=== PATIENT | female | born 1975 | race African-American/Black ===

== ENCOUNTER 2025-02-15 08:59 | Outpatient (CLI) | payer OTHER, SELFPAY ==
--- OUTSIDE RECORDS SUMMARY | 2025-01-29 15:30 | XMS_ITS | Encounter Summary ---
Author Organization [facility] Address [facility] [place] [address] Care Team Providers Care Artist Manager Name Role Phone Lise Posada MD Primary Care Provider [phone] Encounter Details Date Type Department Care Team (Latest Contact Info) Description 09/23/2024 MyChart Message Enc [facility] Multispecialty Care - [facility] 3 [facility], [address] [place] [phone] Jaya Carnes MD 3 [facility] [address] [place] [address] Tomorrow surgery Social History Tobacco Use Types Packs/Day Years Used Date Smoking Tobacco: Never Smokeless Tobacco: Never Alcohol Use Standard Drinks/Week Comments Not Currently 3.3 (1 standard drink = 0.6 oz p ure alcohol) occasional PHQ-2 Answer Date Recorded Patient Health Questionnaire-2 Score 0 07/15/2024 Comments No Sex and Gender Information Value Date Recorded Sex Assigned at Female 03/06/2022 10:50 AM DRAGGER OUT Legal Sex Female 11:21 AM DRAGGER OUT Gender Identity Female 03/06/2022 10:50 AM DRAGGER OUT Sexual Orientation Straight 03/06/2022 10 :50 AM DRAGGER OUT 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 Wish to be (Past 1 Month) No 09/24/2024 12:52 PM CDT Glendy Atkinson RN Ac tive 2. Non-Specific Active Suicidal Thoughts (Past 1 Month) No 09/24/2024 12:52 PM CDT Glendy Atkinson RN Ac tive 6. Suicidal Behavior (Lifetime) No 09/24/2024 12:52 PM CDT Glendy Atkinson RN Rikki tive documented as of this encounter Plan of Treatment Upcoming Encounters Date Type Department Care Team (Latest Contact Info) Description 01/30/2025 2:30 PM CDT Appointment [place] [address] Lise Posada MD [address] [place] [address] 02/05/2025 11:00 AM CDT Office Visit [facility] Family Medicine [address] [address] Lise Posada MD [address] [place] [address] 03/01/2025 1:30 PM DRAGGER OUT Hospital Encounter [facility] [place] [address] Shelby Croft MD [address] [place] [address] 03/01/2025 1:30 PM DRAGGER OUT - 03/01/2025 2:46 PM DRAGGER OUT [facility] [place] [address] Shelby Croft MD [address] [facility] [address] [place] [address] TRANSANAL HEMORRHOIDAL DEARTERIALIZATION 05/06/2025 11:00 AM DRAGGER OUT Office Visit [facility] Multispecialty Care - [facility] 3 [facility], [address] [place] [address] Yulia Tim APRN 3 [facility] [address] [place] [address] Scheduled Procedures Name Priority Associated Diagnoses Date/Ti me HEMORRHOIDECTOMY THD HEMORRHOIDS K64.4 03/01/2025 1:30 PM DRAGGER OUT documented as of this encounter Visit Diagnoses Not on filedocumented in this encounter Additional Health Concerns Infection Onset Date Last Indicated Resolved Time COVID-19 Rule Out 01/21/2025 01/21/2025 01/21/2025 11:40 AM CDT Assessment Noted Time PHQ-9 Depression Total Score: 6 07/16/19 25 1:24 PM CDT documented as of this encounter Care Teams Artist Manager Relationship Specialty Start Date End Date Lise Posada MD PCP - General FAMILY PRACTICE 12/31/17 documented as of this encounter
--- OUTSIDE RECORDS SUMMARY | 2025-01-29 15:30 | XMS_ITS | Encounter Summary ---
Author Organization [facility] Address [address] [place] [address] Care Team Providers Care Pulverizer Name Role Phone Lise Posada MD Primary Care Provider [phone] Encounter Details Date Type Department Care Team (Late st Contact Info) Description 08/17/2024 [employer] Medical Technologiest Message Enc [facility] Family Medicine [facility] [address] [place] [address] [place] [address] [place] [address] My left Kidney, and my upper left side coughing Social History Tobacco Use Types Packs/Day Years Used Date Smoking Tobacco: Never Smokeless Tobacco: Never Alcohol Use Standard Drinks/Week Comments Not Currently 3.3 (1 standard drink = 0.6 oz p ure alcohol) occasional PHQ-2 Answer Date Recorded Patient Health Questionnaire-2 Score 0 07/15/2024 Comments No Sex and Gender Information Value Date Recorded Sex Assigned at Female 03/06/2022 10:50 AM EXECUTIVE CHAIRMAN OF THE BOARD Legal Sex Female 11:21 AM EXECUTIVE CHAIRMAN OF THE BOARD Gender Identity Female 03/06/2022 10:50 AM EXECUTIVE CHAIRMAN OF THE BOARD Sexual Orientation Straight 03/06/2022 10 :50 AM EXECUTIVE CHAIRMAN OF THE BOARD 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 Wish to be (Past 1 Month) No 08/19/2024 12:54 PM CDT Rakel Johnson, RN Acti ve 2. Non-Specific Active Suicidal Thoughts (Past 1 Month) No 08/19/2024 12:54 PM CDT Rakel Johnson, RN Acti ve 6. Suicidal Behavior (Lifetime) No 08/19/2024 12:54 PM CDT Rakel Johnson, RN Acti ve documented as of this encounter Progress Notes * Lise Posada MD - 10/19/2024 7:16 AM CDT Please have pt schedule an appt to discuss. Thanks! ~Dr Olmos documented in this encounter Plan of Treatment Upcoming Encounters Date Type Department Care Team (Latest Contact Info) Description 01/30/2025 2:30 PM CDT Appointment [facility] [place] [address] Lise Posada MD [address] [place] [address] 02/05/2025 11:00 AM CDT Office Visit [facility] Family Medicine - [address] [phone] Lise Posada MD [address] [place] [address] 03/01/2025 1:30 PM EXECUTIVE CHAIRMAN OF THE BOARD Hospital Encounter [facility] [place] [address] Shelby Croft MD 14[address] [facility] [address] [place] [address] 03/01/2025 1:30 PM EXECUTIVE CHAIRMAN OF THE BOARD - 03/01/2025 2:46 PM EXECUTIVE CHAIRMAN OF THE BOARD Surgery [facility] OR [facility] [place] [address] Shelby Crfot MD 1414 [facility] [address] [place] [address] TRANSANAL HEMORRHOIDAL DEARTERIALIZATION 05/06/2025 11:00 AM EXECUTIVE CHAIRMAN OF THE BOARD Office Visit [facility] - [facility] [address], [address] [place] [address] Yulia Tim, SHEETMETAL TRADES WORKER 3 [facility] [address] [place] [address] Scheduled Procedures Name Priority Associated Diagnoses Date/Ti me HEMORRHOIDECTOMY THD HEMORRHOIDS K64.4 03/01/2025 1:30 PM EXECUTIVE CHAIRMAN OF THE BOARD documented as of this encounter Visit Diagnoses Not on filedocumented in this encounter Additional Health Concerns Infection Onset Date Last Indicated Resolved Time COVID-19 Rule Out 01/21/2025 01/21/2025 01/21/2025 11:40 AM CDT Assessment Noted Time PHQ-9 Depression Total Score: 6 07/16/19 25 1:24 PM CDT documented as of this encounter Care Teams Pulverizer Relationship Specialty Start Date End Date Lise Posada MD PCP - General FAMILY PRACTICE 12/31/17 documented as of this encounter
--- OUTSIDE RECORDS SUMMARY | 2025-01-29 15:31 | XMS_ITS | Encounter Summary ---
Author Organization [facility] Address [facility] [place] [address] Care Team Providers Care Automotive Engineering Teacher Name Role Phone Lise Posada MD Primary Care Provider [phone] Encounter Details Date Type Department Care Team (Late st Contact Info) Description 07/26/2022 MyChart Message Enc [facility] Family Medicine [facility] [address] [place] [phone] Lise Posada MD [address] [place] [address] Medical question Social History Tobacco Use Types Packs/Day Years Used Date Smoking Tobacco: Never Smokeless Tobacco: Never Alcohol Use Standard Drinks/Week Comments Yes 0 (1 standard drink = 0.6 oz pur e alcohol) occasional PHQ-2 Answer Date Recorded Patient Health Questionnaire-2 Score 2 05/30/2022 Comments No Sex and Gender Information Value Date Recorded Sex Assigned at Female 03/06/2022 10:50 AM LEATHER SPLITTER Legal Sex Female 11:21 AM LEATHER SPLITTER Gender Identity Female 03/06/2022 10:50 AM LEATHER SPLITTER Sexual Orientation Straight 03/06/2022 10 :50 AM LEATHER SPLITTER Occupation Industry Job Start Date Job End Date [employer] [employer] Not on file Not on file Not on file documented as of this encounter Plan of Treatment Upcoming Encounters Date Type Department Care Team (Latest Contact Info) Description 01/30/2025 2:[address] [facility] [place] [address] Lise Posada MD [address] [place] [address] 02/05/2025 11:00 AM CDT Office Visit [facility] Family Medicine - [address] [phone] Lise Posada MD [address] [place] [address] 03/01/2025 1:30 PM LEATHER SPLITTER Hospital Encounter [facility] [place] [address] Shelby Croft MD 1414 [facility] [address] [place] [address] 03/01/2025 1:30 PM LEATHER SPLITTER - 03/01/2025 2:46 PM LEATHER SPLITTER Surgery [facility] [address] Shelby Croft MD 1414 [facility] [address] [place] [address] TRANSANAL HEMORRHOIDAL DEARTERIALIZATION 05/06/2025 11:00 AM LEATHER SPLITTER Office Visit [facility] 3 [facility], [address] [place] [address] Yulia Tim APRN [address] [facility] [address] [place] [address] Scheduled Procedures Name Priority Associated Diagnoses Date/Ti me HEMORRHOIDECTOMY THD HEMORRHOIDS K64.4 03/01/2025 1:30 PM LEATHER SPLITTER documented as of this encounter Visit Diagnoses Not on filedocumented in this encounter Additional Health Concerns Infection Onset Date Last Indicated Resolved Time COVID-19 Rule Out 01/21/2025 01/21/2025 01/21/2025 11:40 AM CDT Assessment Noted Time PHQ-9 Depression Total Score: 0 03/16/20 21 1:54 PM LEATHER SPLITTER documented as of this encounter Care Teams Automotive Engineering Teacher Relationship Specialty Start Date End Date Lise Posada MD PCP - General FAMILY PRACTICE 12/31/17 documented as of this encounter
--- OUTSIDE RECORDS SUMMARY | 2025-01-29 15:31 | XMS_ITS | Encounter Summary ---
Author Organization [facility] Address [facility] [place] [address] Care Team Providers Care Nut Threader Name Role Phone Lise Posada MD Primary Care Provider [phone] Encounter Details Date Type Department Care Team (Late st Contact Info) Description 12/23/2023 MyChart Message Enc [facility] Family Medicine [facility] [address] [place] [phone] Lise Posada MD [address] [place] [address] Referral letter Social History Tobacco Use Types Packs/Day Years Used Date Smoking Tobacco: Never Smokeless Tobacco: Never Alcohol Use Standard Drinks/Week Comments Yes 0 (1 standard drink = 0.6 oz pur e alcohol) occasional PHQ-2 Answer Date Recorded Patient Health Questionnaire-2 Score 0 12/20/2023 Comments No Sex and Gender Information Value Date Recorded Sex Assigned at Female 03/06/2022 10:50 AM TOOL FILER Legal Sex Female 11:21 AM TOOL FILER Gender Identity Female 03/06/2022 10:50 AM TOOL FILER Sexual Orientation Straight 03/06/2022 10 :50 AM TOOL FILER Occupation Industry Job Start Date Job End Date [facility] [employer] Not on file Not on file Not on file documented as of this encounter Plan of Treatment Upcoming Encounters Date Type Department Care Team (Latest Contact Info) Description 01/30/2025 2:[address] [place] [place] [address] Lise Posada MD [address] [place] [address] 02/05/2025 11:00 AM CDT Office Visit [facility] Family Medicine - [address] [phone] Lise Posada MD [address] [place] [address] 03/01/2025 1:30 PM TOOL FILER Hospital Encounter [facility] [place] [address] Shelby Croft MD 1414 [facility] [address] [place] [address] 03/01/2025 1:30 PM TOOL FILER - 03/01/2025 2:46 [address] [facility] [place] [address] Shelby Croft MD 1414 [facility] [address] [place] [address] TRANSANAL HEMORRHOIDAL DEARTERIALIZATION 05/06/2025 11:00 AM TOOL FILER Office Visit [facility] 3 [facility], [address] [place] [address] Yulia Tim APRN [address] [facility] [address] [place] [address] Scheduled Procedures Name Priority Associated Diagnoses Date/Ti me HEMORRHOIDECTOMY THD HEMORRHOIDS K64.4 03/01/2025 1:30 PM TOOL FILER documented as of this encounter Visit Diagnoses Not on filedocumented in this encounter Additional Health Concerns Infection Onset Date Last Indicated Resolved Time COVID-19 Rule Out 01/21/2025 01/21/2025 01/21/2025 11:40 AM CDT Assessment Noted Time PHQ-9 Depression Total Score: 5 09/19/19 24 10:57 AM CDT documented as of this encounter Care Teams Nut Threader Relationship Specialty Start Date End Date Lise Posada MD PCP - General FAMILY PRACTICE 12/31/17 documented as of this encounter
--- OUTSIDE RECORDS SUMMARY | 2025-01-29 15:31 | XMS_ITS | Encounter Summary ---
Author Organization [facility] Address [facility], [id number] [place] [address] Care Team Providers Care Lawn Maintenance Worker Name Role Phone Lise Posada MD Primary Care Provider [phone] Encounter Details Date Type Department Care Team (Latest Contact Info) Description 12/04/2023 MyChart Message Enc [facility] Multispecialty Care - [facility] 3 [facility], [address] [place] [phone] Jaya Carnes MD 3 [facility] Ric[address] [place] [address] [facility] / upper right side upper back Social History Tobacco Use Types Packs/Day Years Used Date Smoking Tobacco: Never Smokeless Tobacco: Never Alcohol Use Standard Drinks/Week Comments Yes 0 (1 standard drink = 0.6 oz pur e alcohol) occasional PHQ-2 Answer Date Recorded Patient Health Questionnaire-2 Score 1 11/05/2023 Comments No Sex and Gender Information Value Date Recorded Sex Assigned at Female 03/06/2022 10:50 AM PADDED PRODUCTS INSPECTOR TRIMMER Legal Sex Female 11:21 AM PADDED PRODUCTS INSPECTOR TRIMMER Gender Identity Female 03/06/2022 10:50 AM PADDED PRODUCTS INSPECTOR TRIMMER Sexual Orientation Straight 03/06/2022 10 :50 AM PADDED PRODUCTS INSPECTOR TRIMMER 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 encounter Plan of Treatment Upcoming Encounters Date Type Department Care Team (Latest Contact Info) Description 01/30/2025 2:30 PM CDT Appointment [facility] [place] [address] Lise Posada MD [address] [place] [address] 02/05/2025 11:00 AM CDT Office Visit [facility] Family Medicine - [place] [address] [place] [phone] Lise Posada MD [address] [place] [address] 03/01/2025 1:30 PM PADDED PRODUCTS INSPECTOR TRIMMER Hospital Encounter [facility] [place] [address] Shelby Croft MD [address] [place] [address] [place] [address] 03/01/2025 1:30 PM PADDED PRODUCTS INSPECTOR TRIMMER - 03/01/2025 2:46 PM PADDED PRODUCTS INSPECTOR TRIMMER Surgery [facility] [place] [address] Shelby Croft MD [facility] [address] [place] [address] TRANSANAL HEMORRHOIDAL DEARTERIALIZATION 05/06/2025 11:00 AM PADDED PRODUCTS INSPECTOR TRIMMER Office Visit [facility] Multispecialty Care - [facility] [address] [place] [address] Yulia Tim, LINE ERECTOR 3 [facility] [address] [place] [address] Scheduled Procedures Name Priority Associated Diagnoses Date/Ti me HEMORRHOIDECTOMY THD HEMORRHOIDS K64.4 03/01/2025 1:30 PM PADDED PRODUCTS INSPECTOR TRIMMER documented as of this encounter Visit Diagnoses Not on filedocumented in this encounter Additional Health Concerns Infection Onset Date Last Indicated Resolved Time COVID-19 Rule Out 01/21/2025 01/21/2025 01/21/2025 11:40 AM CDT Assessment Noted Time PHQ-9 Depression Total Score: 5 09/19/19 24 10:57 AM CDT documented as of this encounter Care Teams Lawn Maintenance Worker Relationship Specialty Start Date End Date Lise Posada MD PCP - General FAMILY PRACTICE 12/31/17 documented as of this encounter
--- OUTSIDE RECORDS SUMMARY | 2025-01-29 15:31 | XMS_ITS | Encounter Summary ---
Author Organization [facility] Address [facility] [place] [address] Care Team Providers Care Multi Care Technician Name Role Phone Lise Posada MD Primary Care Provider [phone] Encounter Details Date Type Department Care Team (Late st Contact Info) Description 01/05/2024 MyChart Message Enc [facility] Family Medicine [facility] [address] [place] [phone] Lise Posada MD [address] [place] [address] Medication Social History Tobacco Use Types Packs/Day Years Used Date Smoking Tobacco: Never Smokeless Tobacco: Never Alcohol Use Standard Drinks/Week Comments Yes 0 (1 standard drink = 0.6 oz pur e alcohol) occasional PHQ-2 Answer Date Recorded Patient Health Questionnaire-2 Score 0 12/20/2023 Comments No Sex and Gender Information Value Date Recorded Sex Assigned at Female 03/06/2022 10:50 AM PRINTING MACHINE OPERATOR Legal Sex Female 11:21 AM PRINTING MACHINE OPERATOR Gender Identity Female 03/06/2022 10:50 AM PRINTING MACHINE OPERATOR Sexual Orientation Straight 03/06/2022 10 :50 AM PRINTING MACHINE OPERATOR Occupation Industry Job Start Date Job End Date [employer] Not on file Not on file Not on file documented as of this encounter Plan of Treatment Upcoming Encounters Date Type Department Care Team (Latest Contact Info) Description 01/30/2025 2:[address] [place] [address] Lise Posada MD [address] [place] [address] 02/05/2025 11:00 AM CDT Office Visit [facility] Family Medicine - [address] [phone] Lise Posada MD [facility] [place] [address] 03/01/2025 1:30 PM PRINTING MACHINE OPERATOR Hospital Encounter [facility] [place] [address] Shelby Croft MD [address]14 [facility] [address] [place] [address] 03/01/2025 1:30 PM PRINTING MACHINE OPERATOR - 03/01/2025 2:46 PM PRINTING MACHINE OPERATOR Surgery [place] [address] Shelby Croft MD 1414 [facility] [address] [place] [address] TRANSANAL HEMORRHOIDAL DEARTERIALIZATION 05/06/2025 11:00 AM PRINTING MACHINE OPERATOR Office Visit [facility] Multispecialty Care - [facility] [address] [place] [address] Yulia Tim APRN 3 [facility] [address] [place] [address] Scheduled Procedures Name Priority Associated Diagnoses Date/Ti me HEMORRHOIDECTOMY THD HEMORRHOIDS K64.4 03/01/2025 1:30 PM PRINTING MACHINE OPERATOR documented as of this encounter Visit Diagnoses Not on filedocumented in this encounter Additional Health Concerns Infection Onset Date Last Indicated Resolved Time COVID-19 Rule Out 01/21/2025 01/21/2025 01/21/2025 11:40 AM CDT Assessment Noted Time PHQ-9 Depression Total Score: 5 09/19/19 24 10:57 AM CDT documented as of this encounter Care Teams Multi Care Technician Relationship Specialty Start Date End Date Lise Posada MD PCP - General FAMILY PRACTICE 12/31/17 documented as of this encounter
--- OUTSIDE RECORDS SUMMARY | 2025-01-29 15:31 | XMS_ITS | Encounter Summary ---
Author Organization [facility] Address [address] [place] [address] Care Team Providers Care Orthopaedic Nurse Name Role Phone Lise Posada MD Primary Care Provider [phone] Encounter Details Date Type Department Care Team (Late st Contact Info) Description 10/11/2023 MyCTheramyt Novobiologicst Message Enc [facility] Family Medicine [facility] [address] [place] [address] [place] [address] [place] [address] My upper right side and back Social History Tobacco Use Types Packs/Day Years Used Date Smoking Tobacco: Never Smokeless Tobacco: Never Alcohol Use Standard Drinks/Week Comments Yes 0 (1 standard drink = 0.6 oz pur e alcohol) occasional PHQ-2 Answer Date Recorded Patient Health Questionnaire-2 Score 0 09/19/2023 Comments No Sex and Gender Information Value Date Recorded Sex Assigned at Female 03/06/2022 10:50 AM MOTOR ANALYST Legal Sex Female 11:21 AM MOTOR ANALYST Gender Identity Female 03/06/2022 10:50 AM MOTOR ANALYST Sexual Orientation Straight 03/06/2022 10 :50 AM MOTOR ANALYST 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 Thanks! ~Dr Olmos documented in this encounter Plan of Treatment Upcoming Encounters Date Type Department Care Team (Latest Contact Info) Description 01/30/2025 2:[address] [place] [address] Lise Posada MD [address] [place] [address] 02/05/2025 11:00 AM CDT Office Visit [facility] Family Medicine - [address] [phone] Lise Posada MD [address] [place] [address] 03/01/2025 1:30 PM MOTOR ANALYST Hospital Encounter [facility] [place] [address] Shelby Croft MD [address] [facility] [address] [place] [address] 03/01/2025 1:30 PM MOTOR ANALYST - 03/01/2025 2:46 PM MOTOR ANALYST Surgery [place] [place] [address] Shelby Croft MD [address] [facility] [address] [place] [address] TRANSANAL HEMORRHOIDAL DEARTERIALIZATION 05/06/2025 11:00 AM MOTOR ANALYST Office Visit [facility] Multispecialty Care - [facility] [address] [facility] [address] [address] [place] [address] Yulia Tim, ETHICS INSTRUCTOR 3 [facility] [address] [place] [address] Scheduled Procedures Name Priority Associated Diagnoses Date/Ti me HEMORRHOIDECTOMY THD HEMORRHOIDS K64.4 03/01/2025 1:30 PM MOTOR ANALYST documented as of this encounter Visit Diagnoses Not on filedocumented in this encounter Additional Health Concerns Infection Onset Date Last Indicated Resolved Time COVID-19 Rule Out 01/21/2025 01/21/2025 01/21/2025 11:40 AM CDT Assessment Noted Time PHQ-9 Depression Total Score: 5 09/19/19 24 10:57 AM CDT documented as of this encounter Care Teams Orthopaedic Nurse Relationship Specialty Start Date End Date Lise Posada MD PCP - General FAMILY PRACTICE 12/31/17 documented as of this encounter
--- OUTSIDE RECORDS SUMMARY | 2025-01-29 15:31 | XMS_ITS | Encounter Summary ---
Author Organization [facility] Address [facility] [place] [address] Care Team Providers Care Wooden Fence Erector Name Role Phone Lise Posada MD Primary Care Provider [phone] Encounter Details Date Type Department Care Team (Late st Contact Info) Description 01/07/2024 Franchise Fund Message Enc [facility] Family Medicine [address] [address] [facility] Provider Medication refill Social History Tobacco Use Types Packs/Day Years Used Date Smoking Tobacco: Never Smokeless Tobacco: Never Alcohol Use Standard Drinks/Week Comments Yes 0 (1 standard drink = 0.6 oz pur e alcohol) occasional PHQ-2 Answer Date Recorded Patient Health Questionnaire-2 Score 0 12/20/2023 Comments No Sex and Gender Information Value Date Recorded Sex Assigned at Female 03/06/2022 10:50 AM ENGINE CLEANER Legal Sex Female 11:21 AM ENGINE CLEANER Gender Identity Female 03/06/2022 10:50 AM ENGINE CLEANER Sexual Orientation Straight 03/06/2022 10 :50 AM ENGINE CLEANER 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 Thanks! ~Dr Olmos documented in this encounter Plan of Treatment Upcoming Encounters Date Type Department Care Team (Latest Contact Info) Description 01/30/2025 2:30 PM CDT Appointment [facility] [place] [address] Lise Posada MD [address] [place] [address] 02/05/2025 11:00 AM CDT Office Visit [facility] Family Medicine - [address] [phone] Lise Posada MD [address] [place] [address] 03/01/2025 1:30 PM ENGINE CLEANER Hospital Encounter [place] [place] [address] Shelby Croft MD [address] [place] [address] [place] [address] 03/01/2025 1:30 PM ENGINE CLEANER - 03/01/2025 2:46 PM ENGINE CLEANER Surgery [facility] [place] [address] Shelby Croft MD [address] [place] [address] [place] [phone] TRANSANAL HEMORRHOIDAL DEARTERIALIZATION 05/06/2025 11:00 AM ENGINE CLEANER Office Visit [facility] Multispecialty Care - [facility] [address] [place] [address] Yulia Tim, CLOTH BLEACHING RANGE BACK TENDER 3 [facility] [address] [place] [address] Scheduled Procedures Name Priority Associated Diagnoses Date/Ti me HEMORRHOIDECTOMY THD HEMORRHOIDS K64.4 03/01/2025 1:30 PM ENGINE CLEANER documented as of this encounter Visit Diagnoses Not on filedocumented in this encounter Additional Health Concerns Infection Onset Date Last Indicated Resolved Time COVID-19 Rule Out 01/21/2025 01/21/2025 01/21/2025 11:40 AM CDT Assessment Noted Time PHQ-9 Depression Total Score: 5 09/19/19 24 10:57 AM CDT documented as of this encounter Care Teams Wooden Fence Erector Relationship Specialty Start Date End Date Lise Posada MD PCP - General FAMILY PRACTICE 12/31/17 documented as of this encounter
--- OUTSIDE RECORDS SUMMARY | 2025-01-29 15:31 | XMS_ITS | Encounter Summary ---
Author Organization [facility] Address [address] [place] [address] Care Team Providers Care Steel Fabricating Supervisor Name Role Phone Lise Posada MD Primary Care Provider [phone] Encounter Details Date Type Department Care Team (Late st Contact Info) Description 02/20/2023 Prep for Procedure [facility] [place] [address] Conchis Johns MD [address] [place] [address] Social History Tobacco Use Types Packs/Day Years Used Date Smoking Tobacco: Never Smokeless Tobacco: Never Alcohol Use Standard Drinks/Week Comments Yes 0 (1 standard drink = 0.6 oz pur e alcohol) occasional PHQ-2 Answer Date Recorded Patient Health Questionnaire-2 Score 2 05/30/2022 Comments No Sex and Gender Information Value Date Recorded Sex Assigned at Female 03/06/2022 10:50 AM WEB DEVELOPMENT MANAGER Legal Sex Female 11:21 AM WEB DEVELOPMENT MANAGER Gender Identity Female 03/06/2022 10:50 AM WEB DEVELOPMENT MANAGER Sexual Orientation Straight 03/06/2022 10 :50 AM WEB DEVELOPMENT MANAGER 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 Wish to be (Past 1 Month) No 02/20/2023 8:10 AM Norma Mackenzie RN Act edil 2. Non-Specific Active Suicidal Thoughts (Past 1 Month) No 02/20/2023 8:10 AM Norma Mackenzie RN Act edil 6. Suicidal Behavior (Lifetime) No 02/20/2023 8:10 AM Norma Mackenzie RN Act edil documented as of this encounter Plan of Treatment Upcoming Encounters Date Type Department Care Team (Latest Contact Info) Description 01/30/2025 2:30 [place] [address] Lise Posada MD [address] [place] [address] 02/05/2025 11:00 AM CDT Office Visit [facility] Family Medicine - [address] [phone] Lise Posada MD [address] [place] [address] 03/01/2025 1:30 PM WEB DEVELOPMENT MANAGER [facility] [place] [address] Shelby Croft MD [address] [address] 03/01/2025 1:30 PM WEB DEVELOPMENT MANAGER - 03/01/2025 2:46 PM WEB DEVELOPMENT MANAGER Surgery [facility] [place] [address] Shelby Croft MD [address] [place] [address] [address] [place] [address] TRANSANAL HEMORRHOIDAL DEARTERIALIZATION 05/06/2025 11:00 AM WEB DEVELOPMENT MANAGER Office Visit [facility] Multispecialty Care - [facility] 3 [facility], [address] [place] [address] Yulia Tim APRN 3 [facility] [address] [place] [address] Scheduled Procedures Name Priority Associated Diagnoses Date/Ti me HEMORRHOIDECTOMY THD HEMORRHOIDS K64.4 03/01/2025 1:30 PM WEB DEVELOPMENT MANAGER documented as of this encounter Results * TYPE & SCREEN (02/18/2023 3:48 PM WEB DEVELOPMENT MANAGER) ABO/RH O POSITIVE 02/18/2023 4:41 PM WEB DEVELOPMENT MANAGER [facility] ANTIBODY SCREEN NEGATIVE 02/18/2023 4:41 PM WEB DEVELOPMENT MANAGER [facility] SAMPLE EXPIRATION 02/21/2023,2 359 02/18/2023 4:41 PM WEB DEVELOPMENT MANAGER [facility] 02/18/2023 3:48 PM WEB DEVELOPMENT MANAGER us Conchis Johns MD BLOOD BANK TEST ORDERABLES Final Result [facility] [address] [place] [address], * (ABNORMAL) CBC W/DIFF AUTOMATED (02/13/2023 12:56 PM CDT) [facility] WBC 7.3 4.5 - 11.0 x10'3/uL 02/13/2023 3:23 PM CDT [facility] RBC 3.72(L) 4.20 - 5.40 x10'6/uL 02/13/2023 3:23 PM CDT [facility] HGB 6.0(LL) 12.0 - 16.0 G/DL 02/13/2023 3:23 PM CDT [facility] Comment: This result has been called to MEGAN CASE by BILL GOLDSTEIN on 02 13 2023 at 1522, and has been read back. HCT 23.2(L) 38.0 - 48.0 % 02/13/2023 3:23 PM CDT [facility] MCV 62.4(L) 81.0 - 99.0 FL 02/13/2023 3:23 PM CDT [facility] MCH 16.1(L) 27.0 - 31.0 PG 02/13/2023 3:23 PM CDT [facility] MCHC 25.9(L) 32.0 - 36.0 G/DL 02/13/2023 3:23 PM CDT [facility] RDW 21.8(H) 11.5 - 14.5 % 02/13/2023 3:23 PM CDT [facility] PLT 350 130 - 400 x10'3/uL 02/13/2023 3:23 PM CDT [facility] DIFFERENTIAL TYPE AUTOMATED DIFFERENTIAL 02/13/2023 3:23 PM CDT [facility] NEUTROPHILS % 54.5 % 02/13/2023 3:23 PM CDT [facility] LYMPHOCYTES % 36.0 % 02/13/2023 3:23 PM CDT [facility] MONOCYTES % 7.8 % 02/13/2023 3:23 PM CDT [facility] EOSINOPHILS 0.5 % 02/13/2023 3:23 PM CDT [facility] BASOPHILS 0.8 % 02/13/2023 3:23 PM CDT [facility] IMMATURE GRANS % 0.4 % 02/14/20 3:23 PM CDT [facility] ABS. NEUTROPHILS TOTAL 4.00 1.80 - 7.70 x10'3/uL 02/13/2023 3:23 PM CDT [facility] ABS. LYMPHOCYTES 2.64 1.00 - 4.80 x10'3/uL 02/13/2023 3:23 PM CDT [facility] ABS. MONOCYTES 0.57 0.24 - 0.86 x10'3/uL 02/13/2023 3:23 PM CDT [facility] ABS. EOSINOPHILS 0.04 0.04 - 0.36 x10'3/uL 02/13/2023 3:23 PM CDT [facility] ABS. BASOPHILS 0.06 0.01 - 0.08 x10'3/uL 02/13/2023 3:23 PM CDT [facility] ABS. IMMATURE GRANULOCYTES 0.03 0.00 - 0.49 x10'3/uL 02/13/2023 3:23 PM CDT [facility] RBC MORPHOLOGY SLIDE REVIEWED 2022 3:23 PM CDT [facility] ANISO 1+ 02/13/2023 3:23 PM CDT [facility] HYPOCHROMASIA 2+ 02/13/2023 3:23 PM CDT [facility] MICRO 3+ 02/13/2023 3:23 PM CDT [facility] PLT EST. ADEQUATE 02/13/2023 3:23 PM CDT [facility] PATHOLOGIST COMMENT PATHOLOGIST REVIEW TO FOLLOW. 02/13/2023 3:23 PM CDT [facility] 02/13/2023 12:5 6 PM CDT us Conchis Johns MD LABORATORY Final Result Performing Organization Address City/[facility]/ZIP Co de Phone Number [facility] [address] [place] [address], [place] [phone] * TYPE & SCREEN (02/13/2023 12:56 PM CDT) ABO/RH O POSITIVE 02/13/2023 3:09 PM CDT [facility] ANTIBODY SCREEN NEGATIVE 02/13/2023 3:09 PM CDT [facility] SAMPLE EXPIRATION 02/16/2023,2 359 02/13/2023 3:09 PM CDT [facility] 02/13/2023 12:5 6 PM CDT Conchis Johns MD BLOOD BANK TEST ORDERABLES Final Result Performing Organization Address [facility] Co de Phone Number [facility] [address] [place] [address], [place] [phone] documented in this encounter Visit Diagnoses Diagnosis Menometrorrhagia- Primary Excessive or frequent menstruation Uterine prolapse Uterine prolapse without mention of vaginal wall prolapse documented in this encounter Additional Health Concerns Infection Onset Date Last Indicated Resolved Time COVID-19 Rule Out 01/21/2025 01/21/2025 01/21/2025 11:40 AM CDT Assessment Noted Time PHQ-9 Depression Total Score: 0 03/16/20 21 1:54 PM WEB DEVELOPMENT MANAGER documented as of this encounter Care Teams Steel Fabricating Supervisor Relationship Specialty Start Date End Date Lise Posada MD PCP - General FAMILY PRACTICE 12/31/17 documented as of this encounter
--- OUTSIDE RECORDS SUMMARY | 2025-01-29 15:31 | XMS_ITS | Encounter Summary ---
Author Organization [facility] Address [address] [place] [address] Care Team Providers Care Social Welfare Administrator Name Role Phone Lise Posada MD Primary Care Provider [phone] Encounter Details Date Type Department Care Team (Late st Contact Info) Description 01/06/2024 MyChart Message Enc [facility] Medical Group Family Medicine [facility] [address] [place] [address] [place] [address] [place] [address] Hepatogology Social History Tobacco Use Types Packs/Day Years Used Date Smoking Tobacco: Never Smokeless Tobacco: Never Alcohol Use Standard Drinks/Week Comments Yes 0 (1 standard drink = 0.6 oz pur e alcohol) occasional PHQ-2 Answer Date Recorded Patient Health Questionnaire-2 Score 0 12/20/2023 Comments No Sex and Gender Information Value Date Recorded Sex Assigned at Female 03/06/2022 10:50 AM TURF FARMER Legal Sex Female 11:21 AM TURF FARMER Gender Identity Female 03/06/2022 10:50 AM TURF FARMER Sexual Orientation Straight 03/06/2022 10 :50 AM TURF FARMER Occupation Industry Job Start Date Job End Date [facility] Not on file Not on file Not on file documented as of this encounter Plan of Treatment Upcoming Encounters Date Type Department Care Team (Latest Contact Info) Description 01/30/2025 2:[address] [place] [place] [address] [place] [address] [place] [address] 02/05/2025 11:00 AM CDT Office Visit [facility] Family Medicine - [address] [phone] Lise Posada MD [address] [place] [address] 03/01/2025 1:30 PM TURF FARMER Hospital Encounter [facility] [place] [address] Shebly Croft MD [address] [facility] [address] [place] [address] 03/01/2025 1:30 PM TURF FARMER - 03/01/2025 2:46 PM TURF F[address]ER Surgery [facility] [place] [address] Shelby Croft MD [address] [facility] [address] [place] [address] TRANSANAL HEMORRHOIDAL DEARTERIALIZATION 05/06/2025 11:00 AM TURF FARMER Office Visit [facility] Multispecialty Care - [facility] [address] [place] [address] Yulia Tim APRN [address] [place] [address] Scheduled Procedures Name Priority Associated Diagnoses Date/Ti me HEMORRHOIDECTOMY THD HEMORRHOIDS K64.4 03/01/2025 1:30 PM TURF FARMER documented as of this encounter Visit Diagnoses Not on filedocumented in this encounter Additional Health Concerns Infection Onset Date Last Indicated Resolved Time COVID-19 Rule Out 01/21/2025 01/21/2025 01/21/2025 11:40 AM CDT Assessment Noted Time PHQ-9 Depression Total Score: 5 09/19/19 24 10:57 AM CDT documented as of this encounter Care Teams Social Welfare Administrator Relationship Specialty Start Date End Date Lise Posada MD PCP - General FAMILY PRACTICE 12/31/17 documented as of this encounter
--- OUTSIDE RECORDS SUMMARY | 2025-01-29 15:31 | XMS_ITS | Encounter Summary ---
Author Organization [facility] Address [address] [place] [address] Care Team Providers Care Die Barber Name Role Phone Lise Posada MD Primary Care Provider [phone] Encounter Details Date Type Department Care Team (Late st Contact Info) Description 06/24/2024 MyChart Message Enc [facility] Family Medicine [facility] [address] [place] [phone] [place] [address] [place] [address] muscles relaxer Social History Tobacco Use Types Packs/Day Years Used Date Smoking Tobacco: Never Smokeless Tobacco: Never Alcohol Use Standard Drinks/Week Comments Not Currently 0 (1 standard drink = 0.6 oz pur e alcohol) occasional PHQ-2 Answer Date Recorded Patient Health Questionnaire-2 Score 1 04/06/2024 Comments No Sex and Gender Information Value Date Recorded Sex Assigned at Female 03/06/2022 10:50 AM BABY SITTER Legal Sex Female 11:21 AM BABY SITTER Gender Identity Female 03/06/2022 10:50 AM BABY SITTER Sexual Orientation Straight 03/06/2022 10 :50 AM BABY SITTER Occupation Industry Job Start Date Job End Date [facility] Not on file Not on file Not on file documented as of this encounter Plan of Treatment Upcoming Encounters Date Type Department Care Team (Latest Contact Info) Description 01/30/2025 2:[address] [place] [address] [place] [address] [place] [address] 02/05/2025 11:00 AM CDT Office Visit [facility] Family Medicine - [address] [phone] Lise Posada MD [address] [place] [address] 03/01/2025 1:30 PM BABY SITTER Hospital Encounter [facility] [place] [address] Shelby Croft MD [facility] [address] [place] [phone] 03/01/2025 1:30 PM BABY SITTER - 03/01/2025 2:46 PM B[address]Y SITTER Surgery [facility] [address] Shelby Croft MD [address]14 [facility] [address] [place], [place] [address] TRANSANAL HEMORRHOIDAL DEARTERIALIZATION 05/06/2025 11:00 AM BABY SITTER Office Visit [facility] [address] [place] [address] Yulia Tim APRN [address] [facility] [address] [place] [address] Scheduled Procedures Name Priority Associated Diagnoses Date/Ti me HEMORRHOIDECTOMY THD HEMORRHOIDS K64.4 03/01/2025 1:30 PM BABY SITTER documented as of this encounter Visit Diagnoses Not on filedocumented in this encounter Additional Health Concerns Infection Onset Date Last Indicated Resolved Time COVID-19 Rule Out 01/21/2025 01/21/2025 01/21/2025 11:40 AM CDT Assessment Noted Time PHQ-9 Depression Total Score: 5 09/19/19 24 10:57 AM CDT documented as of this encounter Care Teams Die Barber Relationship Specialty Start Date End Date Lise Posada MD PCP - General FAMILY PRACTICE 12/31/17 documented as of this encounter
--- OUTSIDE RECORDS SUMMARY | 2025-01-29 15:31 | XMS_ITS | Encounter Summary ---
Author Organization [facility] Address Formerly [facility], [facility] [place] [address] Care Team Providers Care Stone Trimmer Name Role Phone Lise Posada MD Primary Care Provider Encounter Details Date Type Department Care Team (Late st Contact Info) Description 09/23/2023 AutoSpott Message Enc [facility] Family Medicine [facility] [address] [place] [phone] [place] [address] [place] [phone] Blood work Social History Tobacco Use Types Packs/Day Years Used Date Smoking Tobacco: Never Smokeless Tobacco: Never Alcohol Use Standard Drinks/Week Comments Yes 0 (1 standard drink = 0.6 oz pur e alcohol) occasional PHQ-2 Answer Date Recorded Patient Health Questionnaire-2 Score 0 09/19/2023 Comments No Sex and Gender Information Value Date Recorded Sex Assigned at Female 03/06/2022 10:50 AM BAY STOCKER Legal Sex Female 11:21 AM BAY STOCKER Gender Identity Female 03/06/2022 10:50 AM BAY STOCKER Sexual Orientation Straight 03/06/2022 10 :50 AM BAY STOCKER Occupation Industry Job Start Date Job End Date [facility] Not on file Not on file Not on file documented as of this encounter Progress Notes * Taina Zelaya MA - 09/23/2023 1:53 PM CDTFrom: Ginette Brooks To: Dr. Lise Posada Sent: 09/23/2023 9:14 AM CDT Subject: Blood work Dr Posada can you send my lab work to the hospital I have to be at the hospital documented in this encounter Plan of Treatment Upcoming Encounters Date Type Department Care Team (Latest Contact Info) Description 01/30/2025 2:30 PM CDT [place]ointment [place] [address] [place] [address] [place] [phone] 02/05/2025 11:00 AM CDT Office Visit [facility] Family Medicine - [address] [phone] Lise Posada MD [address] [place] [phone] 03/01/2025 1:30 PM BAY STOCKER Hospital Encounter [facility] [place] [address] Shelby Croft MD [address] [place] [address] [place] [phone] 03/01/2025 1:30 PM BAY STOCKER - 03/01/2025 2:46 PM BAY STOCKER Surgery [place] [address] Shelby Croft MD [address] [place] [address] [place] [address] TRANSANAL HEMORRHOIDAL DEARTERIALIZATION 05/06/2025 11:00 AM BAY STOCKER Office Visit [facility] Multispecialty Care - [facility] [address] [facility], [address] [place] [address] Yulia Tim, JUNK DEALER 3 [facility] [address] [place] [address] Scheduled Procedures Name Priority Associated Diagnoses Date/Ti me HEMORRHOIDECTOMY THD HEMORRHOIDS K64.4 03/01/2025 1:30 PM BAY STOCKER documented as of this encounter Visit Diagnoses Not on filedocumented in this encounter Additional Health Concerns Infection Onset Date Last Indicated Resolved Time COVID-19 Rule Out 01/21/2025 01/21/2025 01/21/2025 11:40 AM CDT Assessment Noted Time PHQ-9 Depression Total Score: 5 09/19/19 24 10:57 AM CDT documented as of this encounter Care Teams Stone Trimmer Relationship Specialty Start Date End Date Lise Posada MD PCP - General FAMILY PRACTICE 12/31/17 documented as of this encounter
--- OUTSIDE RECORDS SUMMARY | 2025-01-29 15:31 | XMS_ITS | Encounter Summary ---
Author Organization [facility] Address [address] [place] [address] Care Team Providers Care Solutions Manager Name Role Phone Lise Posada MD Primary Care Provider [phone] Encounter Details Date Type Department Care Team (Late st Contact Info) Description 06/08/[address] [facility] Family Medicine [facility] [address] [place] [phone] [place] [address] [place] [address] pain medication Social History Tobacco Use Types Packs/Day Years Used Date Smoking Tobacco: Never Smokeless Tobacco: Never Alcohol Use Standard Drinks/Week Comments Not Currently 0 (1 standard drink = 0.6 oz pur e alcohol) occasional PHQ-2 Answer Date Recorded Patient Health Questionnaire-2 Score 1 04/06/2024 Comments No Sex and Gender Information Value Date Recorded Sex Assigned at Female 03/06/2022 10:50 AM MOLD WORKER Legal Sex Female 11:21 AM MOLD WORKER Gender Identity Female 03/06/2022 10:50 AM MOLD WORKER Sexual Orientation Straight 03/06/2022 10 :50 AM MOLD WORKER Occupation Industry Job Start Date Job End Date [facility] Not on file Not on file Not on file documented as of this encounter Plan of Treatment Upcoming Encounters Date Type Department Care Team (Latest Contact Info) Description 01/30/2025 2:[address] [place] [address] [place] [address] [place] [address] 02/05/2025 11:00 AM CDT Office Visit [facility] Family Medicine - [address] [phone] Lise Posada MD [address] [place] [address] 03/01/2025 1:30 PM MOLD WORKER Hospital Encounter [facility] [place] [address] Shelby Croft MD [address] [facility] [address] [place] [phone] 03/01/2025 1:30 PM MOLD WORKER - 03/01/2025 2:46 PM [address] WORK[address] Surgery [facility] [address] Shelby Croft MD 1414 [facility] [address] [place] [address] TRANSANAL HEMORRHOIDAL DEARTERIALIZATION 05/06/2025 11:00 AM MOLD WORKER Office Visit [facility] Multispecialty Care - [facility] [address] [place] [address] Yulia Tim APRN [address] [facility] [address] [place] [address] Scheduled Procedures Name Priority Associated Diagnoses Date/Ti me HEMORRHOIDECTOMY THD HEMORRHOIDS K64.4 03/01/2025 1:30 PM MOLD WORKER documented as of this encounter Visit Diagnoses Not on filedocumented in this encounter Additional Health Concerns Infection Onset Date Last Indicated Resolved Time COVID-19 Rule Out 01/21/2025 01/21/2025 01/21/2025 11:40 AM CDT Assessment Noted Time PHQ-9 Depression Total Score: 5 09/19/19 24 10:57 AM CDT documented as of this encounter Care Teams Solutions Manager Relationship Specialty Start Date End Date Lise Posada MD PCP - General FAMILY PRACTICE 12/31/17 documented as of this encounter
--- OUTSIDE RECORDS SUMMARY | 2025-01-29 15:31 | XMS_ITS | Encounter Summary ---
Author Organization [facility] Address [facility] hospital[facility] [place] [address] Care Team Providers Care Senior Front End Web Developer Name Role Phone Lise Posada MD Primary Care Provider [phone] Encounter Details Date Type Department Care Team (Latest Contact Info) Description 09/24/2023 MyChart Message Enc [facility] Medical Group Multispecialty Care - [facility] 3 [facility], [address] [place] [phone] Jaya Carnes MD 3 [facility] Rickey [address] [place] [address] Medication/how can I find out if I have IBS Social History Tobacco Use Types Packs/Day Years Used Date Smoking Tobacco: Never Smokeless Tobacco: Never Alcohol Use Standard Drinks/Week Comments Yes 0 (1 standard drink = 0.6 oz pur e alcohol) occasional PHQ-2 Answer Date Recorded Patient Health Questionnaire-2 Score 0 09/19/2023 Comments No Sex and Gender Information Value Date Recorded Sex Assigned at Female 03/06/2022 10:50 AM RELAY ASSEMBLER Legal Sex Female 11:21 AM RELAY ASSEMBLER Gender Identity Female 03/06/2022 10:50 AM RELAY ASSEMBLER Sexual Orientation Straight 03/06/2022 10 :50 AM RELAY ASSEMBLER 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 encounter Plan of Treatment Upcoming Encounters Date Type Department Care Team (Latest Contact Info) Description 01/30/2025 2:30 PM CDT Appointment [facility] [place] [address] Lise Posada MD [address] [place] [address] 02/05/2025 11:00 AM CDT Office Visit [facility] Family Medicine - [address] [phone] Lise Posada MD [address] [place] [address] 03/01/2025 1:30 PM RELAY ASSEMBLER Hospital Encounter [facility] [place] [address] Shelby Croft MD [address] [place] [address] 03/01/2025 1:30 PM RELAY ASSEMBLER - 03/01/2025 2:46 PM RELAY ASSEMBLER Surgery [place] [facility] [place] [address] Shelby Croft MD [address] [place] [address] [place] [phone] TRANSANAL HEMORRHOIDAL DEARTERIALIZATION 05/06/2025 11:00 AM RELAY ASSEMBLER Office Visit [facility] Multispecialty Care - [facility] [address] [place] [address] Yulia Tim, BEER MERCHANT [address] [facility] [address] [place] [address] Scheduled Procedures Name Priority Associated Diagnoses Date/Ti me HEMORRHOIDECTOMY THD HEMORRHOIDS K64.4 03/01/2025 1:30 PM RELAY ASSEMBLER documented as of this encounter Visit Diagnoses Not on filedocumented in this encounter Additional Health Concerns Infection Onset Date Last Indicated Resolved Time COVID-19 Rule Out 01/21/2025 01/21/2025 01/21/2025 11:40 AM CDT Assessment Noted Time PHQ-9 Depression Total Score: 5 09/19/19 24 10:57 AM CDT documented as of this encounter Care Teams Senior Front End Web Developer Relationship Specialty Start Date End Date Lise Posada MD PCP - General FAMILY PRACTICE 12/31/17 documented as of this encounter
--- OUTSIDE RECORDS SUMMARY | 2025-01-29 15:32 | XMS_ITS | Encounter Summary ---
Author Organization [facility] Address [facility] [place] [address] Care Team Providers Care Hot Sealing Machine Operator Name Role Phone Lise Posada MD Primary Care Provider Encounter Details Date Type Department Care Team (Late st Contact Info) Description 01/31/2022 [facility] Message Enc [facility] Medical Group Family Medicine [facility] [address] [place] [address] [place] [address] [place] [address] Nurse visit Social History Tobacco Use Types Packs/Day Years Used Date Smoking Tobacco: Never Smokeless Tobacco: Never Alcohol Use Standard Drinks/Week Comments Yes 0 (1 standard drink = 0.6 oz pur e alcohol) occasional PHQ-2 Answer Date Recorded PHQ-2 Score - If the patient scores above 3, please move on to questions 3-9 0 03/16/2021 Comments No Sex and Gender Information Value Date Recorded Sex Assigned at Female 03/06/2022 10:50 AM BUILD AND DEPLOYMENT ENGINEER Legal Sex Female 11:21 AM BUILD AND DEPLOYMENT ENGINEER Gender Identity Female 03/06/2022 10:50 AM BUILD AND DEPLOYMENT ENGINEER Sexual Orientation Straight 03/06/2022 10 :50 AM BUILD AND DEPLOYMENT ENGINEER 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 No / Unsure 01/29/2022 12:40 PM CDT documented as of this encounter Plan of Treatment Upcoming Encounters Date Type Department Care Team (Latest Contact Info) Description 01/30/2025 2:[address] [place] [address] Lise Posada MD [address] [place] [address] 02/05/2025 11:00 AM CDT Office Visit [facility] Medical Group Family Medicine - [address] [phone] Lise Posada MD [address] [place] [address] 03/01/2025 1:30 PM BUILD AND DEPLOYMENT ENGINEER Hospital Encounter [facility] [place] [address] Shelby Croft MD [address] [place] [address] [place] [address] 03/01/2025 1:30 PM BUILD AND DEPLOYMENT ENGINEER - 03/01/2025 2:46 PM BUILD AND DEPLOYMENT ENGINEER Surgery [facility] [place] [address] Shelby Croft MD [address] [place] [address] [place] [address] TRANSANAL HEMORRHOIDAL DEARTERIALIZATION 05/06/2025 11:00 AM BUILD AND DEPLOYMENT ENGINEER Office Visit [facility] Medical Group Multispecialty Care - [facility] 3 [facility], [address] [place] [address] Yulia Tim APRN 3 [facility] [address] [place] [address] Scheduled Procedures Name Priority Associated Diagnoses Date/Ti me HEMORRHOIDECTOMY THD HEMORRHOIDS K64.4 03/01/2025 1:30 PM BUILD AND DEPLOYMENT ENGINEER documented as of this encounter Visit Diagnoses Not on filedocumented in this encounter Additional Health Concerns Infection Onset Date Last Indicated Resolved Time COVID-19 Rule Out 01/21/2025 01/21/2025 01/21/2025 11:40 AM CDT Assessment Noted Time PHQ-9 Depression Total Score: 0 03/16/20 21 1:54 PM BUILD AND DEPLOYMENT ENGINEER documented as of this encounter Care Teams Hot Sealing Machine Operator Relationship Specialty Start Date End Date Lise Posada MD PCP - General FAMILY PRACTICE 12/31/17 documented as of this encounter
--- OUTSIDE RECORDS SUMMARY | 2025-01-29 15:32 | XMS_ITS | Encounter Summary ---
Author Organization [facility] Address [facility] [place] [address] Care Team Providers Care Stoker Erector Name Role Phone Lise Posada MD Primary Care Provider [phone] Encounter Details Date Type Department Care Team (Late st Contact Info) Description 11/01/2021 [email or web address] Message Enc [facility] Family Medicine [facility] [address] [place] [address] Lise Posada MD [address] [place] [address] Question regarding US ABD LIMITED Social History Tobacco Use Types Packs/Day Years [...] Sex Assigned at Female 03/06/2022 10:50 AM GOVERNOR ASSEMBLER Legal Sex Female 11:21 AM GOVERNOR ASSEMBLER Gender Identity Female 03/06/2022 10:50 AM GOVERNOR ASSEMBLER Sexual Orientation Straight 03/06/2022 10 :50 AM GOVERNOR ASSEMBLER COVID-19 Exposure Response Date Recorded In the last 10 days, have yo u been in contact with someone who was confirmed or suspected to have Coronavirus/COVID-19? No / Unsure 11/01/2021 10:36 AM CDT documented as of this encounter Plan of Treatment Upcoming Encounters Date Type Department Care Team (Latest Contact Info) Description 01/30/2025 2:[address] [address] Lise Posada MD [address] [place] [address] 02/05/2025 11:00 AM CDT Office Visit [facility] Family Medicine - [address] [phone] Lise Posada MD [address] [place] [address] 03/01/2025 1:30 PM GOVERNOR ASSEMBLER Hospital Encounter [facility] [place] [address] Shelby Croft MD [address] [place] [address] [place] [phone] 03/01/2025 1:30 PM GOVERNOR ASSEMBLER - 03/01/2025 2:46 PM GOVERNOR ASSEMBLER [facility] [place] [address] Shelby Croft MD [address] [place] [address] [place] [phone] TRANSANAL HEMORRHOIDAL DEARTERIALIZATION 05/06/2025 11:00 AM GOVERNOR ASSEMBLER Office Visit [facility] Multispecialty Care - [facility] 3 [facility], [address] [place] [address] Yulia Tim APRN 3 [facility] [address] [place] [address] Scheduled Procedures Name Priority Associated Diagnoses Date/Ti me HEMORRHOIDECTOMY THD HEMORRHOIDS K64.4 03/01/2025 1:30 PM GOVERNOR ASSEMBLER documented as of this encounter Visit Diagnoses Not on filedocumented in this encounter Additional Health Concerns Infection Onset Date Last Indicated Resolved Time COVID-19 Rule Out 01/21/2025 01/21/2025 01/21/2025 11:40 AM CDT Assessment Noted Time PHQ-9 Depression Total Score: 0 03/16/20 21 1:54 PM GOVERNOR ASSEMBLER documented as of this encounter Care Teams Stoker Erector Relationship Specialty Start Date End Date Lise Posada MD PCP - General FAMILY PRACTICE 12/31/17 documented as of this encounter
--- OUTSIDE RECORDS SUMMARY | 2025-01-29 15:32 | XMS_ITS | Encounter Summary ---
Author Organization [facility] Address [facility] [place] [address] Care Team Providers Care Aircraft Systems Technician Name Role Phone Lise Posada MD Primary Care Provider [phone] Encounter Details Date Type Department Care Team (Late st Contact Info) Description 09/30/2021 [facility] Patient Accounts [address] [place] [address] [facility] Provider Monthly Payment Plan Social History Tobacco Use Types Packs/Day Years [...] Sex Assigned at Female 03/06/2022 10:50 AM EVIDENCE CUSTODIAN Legal Sex Female 11:21 AM EVIDENCE CUSTODIAN Gender Identity Female 03/06/2022 10:50 AM EVIDENCE CUSTODIAN Sexual Orientation Straight 03/06/2022 10 :50 AM EVIDENCE CUSTODIAN COVID-19 Exposure Response Date Recorded In the last 10 days, have yo u been in contact with someone who was confirmed or suspected to have Coronavirus/COVID-19? No / Unsure 09/25/2021 3:42 PM CDT documented as of this encounter Plan of Treatment Upcoming Encounters Date Type Department Care Team (Latest Contact Info) Description 01/30/2025 2:[address] [place] [address] [place] [address] [place] [address] 02/05/2025 11:00 AM CDT Office Visit [facility] Family Medicine - [address] [phone] Lise Posada MD [address] [place] [address] 03/01/2025 1:30 PM EVIDENCE CUSTODIAN Hospital En[facility] [place] [address] Shelby Croft MD [address] [facility] [address] [place], [place] [id number] 03/01/2025 1:30 PM EVIDENCE CUSTODIAN - 03/01/2025 2:46 PM EVIDENCE CUSTODIAN Surgery [facility] [place] [address] Shelby Croft MD [address] [facility] [address] [place], [place] [phone] TRANSANAL HEMORRHOIDAL DEARTERIALIZATION 05/06/2025 11:00 AM EVIDENCE CUSTODIAN Office Visit [facility] Multispecialty Care - [facility] [address], [address] [place] [address] Yulia Tim, MILL ORDER SCHEDULER [address] [facility] [address] [place] [address] Scheduled Procedures Name Priority Associated Diagnoses Date/Ti me HEMORRHOIDECTOMY THD HEMORRHOIDS K64.4 03/01/2025 1:30 PM EVIDENCE CUSTODIAN documented as of this encounter Visit Diagnoses Not on filedocumented in this encounter Additional Health Concerns Infection Onset Date Last Indicated Resolved Time COVID-19 Rule Out 01/21/2025 01/21/2025 01/21/2025 11:40 AM CDT Assessment Noted Time PHQ-9 Depression Total Score: 0 03/16/20 21 1:54 PM EVIDENCE CUSTODIAN documented as of this encounter Care Teams Aircraft Systems Technician Relationship Specialty Start Date End Date Lise Posada MD PCP - General FAMILY PRACTICE 12/31/17 documented as of this encounter
--- OUTSIDE RECORDS SUMMARY | 2025-01-29 15:32 | XMS_ITS | Clinical Summary ---
Author Organization [facility] Address [address] [place] [address] Care Team Providers Care Floor Inspector Name Role Phone Lise Posada MD Primary Care Provider Louise Starkey RN Unavailable Unavailable Olivia Torres JEWELRY BENCH MOLDER-WOOD TILE INSTALLER Unavailable [phone] Source Comments [facility],non-owned Affiliates and Associated Physician Practices is amultiple site organization consisting of ambulatory clinics and hospital sitesin [place], [place], [place] and [place]. This disclosure is being madepursuant to the Care Everywhere program and may not contain all information available regarding this patient. Last updated 18.[facility] Allergies No known active allergies Medications * Be aware that medications may not be up to date on this document. Alwaysverify current medications with the patient. acetaminophen (TYLENOL) 500 MG tabletIndicatio ns:Pain Take 1 (one) tablet by mouth every 4 hours as needed for Fever or Pain Maximum allowable Acetaminophen amount = 4 Grams (4000 mg) / 24 hours. Use every 4 hours as needed for back pain. Reasons: Pain Active valACYclovir (Valtrex) 1 GM tabletIndicatio ns:Genital herpes simplex, unspecified site Take 1 (one) tablet by mouth once daily 30 tablet 11 3 Active amLODIPine (Norvasc) 5 MG tablet Take 1 (one) tablet by mouth once daily 4 Active amLODIPine (Norvasc) 2.5 MG tablet Take 1 (one) tablet by mouth once daily Active pantoprazole EC (Protonix) 40 MG tablet Take 1 (one) tablet by mouth once daily 5 Active linaCLOtide (Linzess) 72 MCG capsule Take 1 (one) capsule by mouth once daily 4 025 Active FeroSul 325 (65 Fe) MG tablet TAKE 1 TABLET BY MOUTH ONCE DAILY FOR 90 DAYS 90 tablet 5 025 Active Active Problems Problem Noted Date Diagnosed Date Fatty liver 05/19/2024 Overview (05/19/2024): Noted on CT 02/06/21 (BMI 27 at the time) 05/18/24 Fibroscan CAP 177, LSM 4.5 kPa Iron deficiency anemia 05/19/2024 Lumbar radiculopathy 07/09/2021 Thoracic back pain 07/09/2021 Dysuria 07/08/2021 Hematochezia 07/08/2021 Anemia 07/08/2021 Right flank pain 07/08/2021 Encounters Date Type Department Care Team Description 12/10/2024 Refill [facility] [facility] [place] [address] Olivia Torres, JEWELRY BENCH MOLDER-WOOD TILE INSTALLER Refill Request from Last 3 Months Family History Medical History Relation Name Comments Thyroid Disease Sister Relation Name Status Comments Sister Social History Tobacco Use Types Packs/Day Years Used Date Smoking Tobacco: Never Smokeless Tobacco: Never Tobacco Cessation:Counseling Given: No Alcohol Use Standard Drinks/Week Comments Yes 0 (1 standard drink = 0.6 oz pur e alcohol) socially AUDIT-C Answer Date Recorded Q1: How often do you have a drink containing alcohol? Never 02/02/2022 Q2: How many drinks containi ng alcohol do you have on a typical day when you are drinking? Patient does not drink Q3: How often do you have si x or more drinks on one occasion? Never 02/02/2022 PHQ-2 Answer Date Recorded PHQ2 TOTAL SCORE 0 10/20/2020 Comments No Sex and Gender Information Value Date Recorded Sex Assigned at Female 07/12/2021 7:16 PM CDT Legal Sex Female 6:10 PM EXTERNAL RELATIONS MANAGER Gender Identity Female 07/12/2021 7:16 PM CDT Sexual Orientation Straight 07/12/2021 7: 16 PM CDT Last Filed Vital Signs Vital Sign Reading Time Taken Comments Blood Pressure 132/71 05/18/2024 10:32 AM EXTERNAL RELATIONS MANAGER Pulse 58 05/18/2024 10:32 AM EXTERNAL RELATIONS MANAGER Temperature 37 C (98.6 F) 05/18/2024 10:32 AM EXTERNAL RELATIONS MANAGER Respiratory Rate 16 02/02/2022 1:26 PM CDT Oxygen Saturation 99% 05/18/2024 10:32 AM EXTERNAL RELATIONS MANAGER Inhaled Oxygen Concentration - - Weight 72.2 kg (159 lb 3.2 oz) 05/18/2024 10:32 AM EXTERNAL RELATIONS MANAGER Height 165.1 cm (5' 5) 05/18/2024 10:32 AM EXTERNAL RELATIONS MANAGER Body Mass Index 26.49 05/18/2024 10:32 AM EXTERNAL RELATIONS MANAGER Plan of Treatment Upcoming Encounters Date Type Department Care Team (Late st Contact Info) Description 05/18/2025 12:30 PM EXTERNAL RELATIONS MANAGER Procedure visit [facility] - [facility] [address] [place] [address] [phone] 05/18/2025 1:00 PM EXTERNAL RELATIONS MANAGER Office Visit [facility] - [facility] [address] [place] [address] [phone] Olivia Torres, JEWELRY BENCH MOLDER-WOOD TILE INSTALLER [address] [place] [address] [place] [address] Health Maintenance Due Date Last Done Comments COLOGUARD (AGES 45-75) - COLON CA SCREENING 1975 CT COLONOGRAPHY - COLON CA SCREENING 1975 FIT - COLON CA SCREENING 1975 FLEX SIG - COLON CA SCREENING 1975 DTAP/TDAP/TD VACCINES (1 - Tdap) 07/29/1994 HEPATITIS B VACCINE (1 of 3 - 19+ 3-dose series) 07/29/1994 PAP SMEAR 07/29/1996 DEPRESSION SCREENING 04/15/2024 COVID-19 VACCINE (2024- season) 2024 11/08/2020, 10/18/2020 INFLUENZA VACCINE (#1) 2024 03/02/2021, 2019 MAMMOGRAM 05/16/2025 05/16/2023, 02/0 04/2023, 08/08/2017, Additional history exists ZOSTER VACCINE (1 of 2) 07/29/2025 SCREENING FOR DIABETES 05/18/2027 , 07/10/2021, 07/09/2021, Additional history exists LIPID TESTING 11/26/2028 11/27/2023, 09/13, 11/13/2021 COLON MONITORING 07/11/2031 07/10/2021, , 03/30/2021, Additional history exists COLONOSCOPY - COLON CA SCREENING 07/11/2031 07/10/2021, 07/10/2021, 03/30/2021, Additional history exists Colorectal Cancer Screening 07/11/2031 HIV SCREENING Completed 07/08/2021, 02/17/2018 HEPATITIS C SCREENING Completed 11/27/2023 , 07/10/2021, 02/17/2018 HIB VACCINE Aged Out No longer eligi ble based on patient's age to complete this topic HPV VACCINE Aged Out No longer eligi ble based on patient's age to complete this topic MENINGOCOCCAL (Group B) VACCINE SHARED DECISION-MAKING Aged Out No longer eligible based on patient's age to complete this topic MENINGOCOCCAL GROUPS A/C/Y/W VACCINE Aged Out No longer eligible based on patient's age to complete this topic Goals Goal Patient Goal Type Associated Problems Recent Progress Patient-Stated? Author Medication Management General On track( 025 4:44 PM EXTERNAL RELATIONS MANAGER) Louise Srivastava, RN Note: Expected end date: ongoing Interventions: Take all medications as prescribed Let your doctor know right away about any changes in your medications Make sure to request a refill of your medication at least one week prior to your last dose Procedures Procedure Name Priority Date/Time Associated Diagnosis Comments COMPREHENSIVE METABOLIC PANEL Routine 05/18/2024 12:11 PM EXTERNAL RELATIONS MANAGER Hepatic steatosis ENDOSCOPY, COLON, DIAGNOSTIC Routine 07/10/2021 2:43 PM CDT HEPATITIS C AB SCREEN RFLX NAAT QUANT AM Draw 07/10/2021 4:40 AM CDT HIV-1 HIV-2 ANTIBODY + HIV P24 AG PANEL STAT 07/08/2021 10:38 PM CDT from Last 3 Months or Most Recently Relevant to Health Maintenance Results * (ABNORMAL) COMPREHENSIVE METABOLIC PANEL (05/18/2024 12:11 PM EXTERNAL RELATIONS MANAGER) BUN 7 7 - 26 mg/dL 05/18/2024 1:28 PM [facility] Creatinine 0.48(L) 0.56 - 0.96 mg/dL 05/18/2024 1:28 PM [facility] Sodium 142 136 - 145 mmol/L 05/18/2024 1:28 PM [facility] Potassium 2.8(L) 3.5 - 4.5 mmol/L 05/18/2024 1:28 PM [facility] Chloride 107 98 - 107 mmol/L 05/18/2024 1:28 PM [facility] CO2 28 22 - 29 mmol/L 05/18/2024 1:28 PM [facility] Glucose 93 70 - 99 mg/dL 05/18/2024 1:28 PM [facility] Calcium 9.1 8.4 - 10.2 mg/dL 05/18/2024 1:28 PM [facility] Protein Total 7.2 6.0 - 8.3 g/dL 05/18/2024 1:28 PM [facility] Albumin 3.9 3.4 - 5.0 g/dL 05/18/2024 1:28 PM [facility] Bilirubin Total 0.3 0.2 - 1.2 mg/dL 05/18/2024 1:28 PM [facility] Alkaline Phosphatase 60 40 - 150 U/L 05/18/2024 1:28 PM [facility] ALT 14 5 - 55 U/L 05/18/2024 1:28 PM [facility] AST 16 5 - 34 U/L 05/18/2024 1:28 PM [facility] Anion Gap 7 6 - 16 05/18/2024 1:28 PM [facility] BUN/Creatinine Ratio 15 7 - 23 05/18/2024 1:28 PM [facility] Osmolality Calculated 292 275 - 295 mOsm/kg 05/18/2024 1:28 PM [facility] Albumin/Globulin Ratio 1.2 1.1 - 2.3 05/18/2024 1:28 PM [facility] eGFR by CKD-EPI >90 >=90 mL/min/1.7 3 m2 05/18/2024 1:28 PM [facility] Blood BLOOD SPECIMEN / Unknown Lab Venipuncture / Unknown 05/18/2024 12:11 PM EXTERNAL RELATIONS MANAGER 05/18/2024 12:52 PM [facility] Olivia Torres JEWELRY BENCH MOLDER-WOOD TILE INSTALLER LAB - CHEMISTRY ORD ERABLES Final Result [facility] [address] [place] [id number], [facility] [phone] * ENDOSCOPY, COLON, DIAGNOSTIC (07/10/2021 2:43 PM CDT) Report Endoscopy POC Endoscopy Department Report _ Patient Name: Ginette Brooks Procedure Date: 07/10/2021 2:43 PM Date of : 1975 Classification: Outpatient Gender: Female Ethnicity: Not or Race: Black or _ Providers: Peter Caldwell MD Referring MD: Inpatient GI Consult Team Procedure: Colonoscopy Indications: Hematochezia Medications: See the Anesthesia note for documentation of the administered medications Description of Procedure: After I obtained informed consent, the scope was passed under direct vision. Throughout the procedure, the patient's blood pressure, pulse, and oxygen saturations were monitored continuously. The PCF-[id number] was introduced through the anus and advanced to the terminal ileum. The colonoscopy was performed without difficulty. The patient tolerated the procedure well. The quality of the bowel preparation was evaluated using the BBPS ([place] Bowel Preparation Scale) with scores of: Right Colon = 2 (minor amount of residual staining, small fragments of stool and/or opaque liquid, but mucosa seen well), Transverse Colon = 3 (entire mucosa seen well with no residual staining, small fragments of stool or opaque liquid) and Left Colon = 3 (entire mucosa seen well with no residual staining, small fragments of stool or opaque liquid). The total BBPS score equals 8. The quality of the bowel preparation was good. Findings: The examined terminal ileum appeared normal. A 2 mm polyp was found in the cecum. The polyp was sessile. The polyp was removed with a jumbo cold forceps. Resection and retrieval were complete. Multiple small-mouthed non-bleeding diverticula were found in the entire colon. Medium-sized non-bleeding internal hemorrhoids were found during retroflexion. The exam was otherwise without abnormality. Estimated Blood Loss: Estimated blood loss was minimal. Complications: No immediate complications. Impression: - The examined portion of the terminal ileum was normal. - One 2 mm polyp in the cecum, removed with a jumbo cold forceps. Resected and retrieved. - Diverticulosis in the entire examined colon. - Medium sized non-bleeding internal hemorrhoids. Moderate Sedation: MAC Recommendation: - Resume previous diet. - Continue present medications. - Await pathology results. - Repeat Colonoscopy in 7 years for surveillance. - Further management per Inpatient Medicine and GI Consult teams. Attending Participation: I personally performed the entire procedure. Procedure Code(s): --- Professional --- 35803, Colonoscopy, flexible; with biopsy, single or multiple Diagnosis Code(s): --- Professional --- K64.8, Other hemorrhoids K63.5, Polyp of colon K92.1, Melena (includes Hematochezia) K57.30, Diverticulosis of large intestine without perforation or abscess without bleeding CPT copyright 2019 [employer]. All rights reserved. The codes documented in this report are preliminary and upon poultry farm manager review may be revised to meet current compliance requirements. Peter Caldwell MD 07/10/2021 3:18:26 PM Note Initiated On: 07/10/2021 2:43 PM Number of Addenda: [address] [id number] [facility] 07/10/2021 2:43 PM CDT Peter Caldwell MD GI PROCEDURE ORDERAB LES Edited Result - Final Performing Organization Address [facility] Co de Phone Number [facility] * HEPATITIS C AB SCREEN RFLX NAAT QUANT (07/10/2021 4:40 AM CDT) Hepatitis C Antibody Non-react edil Non-reac tive 07/10/2021 6:23 AM CDT [facility] Comment:Hepatitis C Antibody screen indicates no serologic evidence of past or current infection with Hepatitis C Virus. Patients with unexplained liver disease who are immunocompromised or suspected of having acute Hepatitis C infection may benefit from Nucleic Acid Test (MARIUSZ) for Hepatitis C Viral RNA to confirm Hepatitis C status. Blood BLOOD SPECIMEN / Unknown Lab Venipuncture / Unknown 07/10/2021 4:40 AM CDT 07/10/2021 5:00 AM CDT Ivan Collier MD LAB - CHEMISTRY ORDERABLES F inal Result Performing Organization Address City/[facility]/ZIP Co de Phone Number [address] [place] [address], [place] [phone] * HIV-1 HIV-2 ANTIBODY + HIV P24 AG PANEL (07/08/2021 10:38 PM CDT) HIV Antigen/Antibod y 1 & 2 Non-reacti ve Non-react edil 07/08/2021 11:31 PM CDT [facility] Comment:No Laboratory eviden ce of HIV infection. Blood BLOOD SPECIMEN / Unknown Venipuncture / Unknown 07/08/2021 10:38 PM CDT 07/08/2021 10:42 PM CDT Deshaun Luna MD LAB - CHEMISTRY ORDERABLES Final Result [facility] [address] [place] [address], [place] [phone] from Last 3 Months or Most Recently Relevant to Health Maintenance Insurance [facility] Advance Directives * Full Code (Latest Code Status on File) Date Activated Date Inactivated Comments 07/08/2021 7:36 PM 07/10/2021 10:00 PM Care Teams Floor Inspector Relationship Specialty Start Date End Date Lise Posada MD [address] [place] [address] PCP - General Family Medicine 02/17/18 Louise Starkey, RN Registered Nurse Hepatology 05/18/24 Olivia Torres, JEWELRY BENCH MOLDER-WOOD TILE INSTALLER [address] [place] [address] Nurse Practitioner Nurse Practitioner Family 05/19/24
--- OUTSIDE RECORDS SUMMARY | 2025-01-29 15:32 | XMS_ITS | Clinical Summary ---
Author Organization [facility] Address [facility] [place] [address] Care Team Providers Care Radio/Tv Technician Name Role Phone Lise Posada MD Primary Care Provider Allergies No known active allergies Medications linaCLOtide (LINZESS) 72 MCG capsuleIndicati ons:Irritable bowel syndrome with constipation Take 1 capsule (72 mcg total) by mouth daily. 90 capsule 3 04/07/20 24 2024 Active valACYclovir (VALTREX) 500 MG tabletIndicatio ns:HSV-2 infection Take 1 tablet (500 mg total) by mouth daily. 30 tablet 2 06/11/19 25 Active lidocaine (LIDO EVIE) 4 % patch Place 1 patch onto the skin daily. Remove & Discard patch within 12 hours or as directed by 30 patch 08/20/19 25 Active valACYclovir (VALTREX) 1 g tablet Take 1 tablet (1,000 mg total) by mouth daily. 12/11/19 25 Active estradiol (ESTRACE) 0.1 MG/GM vaginal cream INSERT 1 GRAM VAGINALLY 2 TIMES A WEEK 12/11/19 25 Active penicillin VK 500 MG tablet Take 1 tablet (500 mg total) by mouth 2 (two) times daily for 10 days. 20 tablet 01/22/20 25 2024 Active valsartan (DIOVAN) 40 MG tabletIndicatio ns:Primary hypertension Take 1 tablet (40 mg total) by mouth daily. 90 tablet 1 01/23/20 25 Active potassium chloride CR (KLOR-CON M) 20 MEQ tabletIndicatio ns:Hypokalemia Take 1 tablet (20 mEq total) by mouth daily. 90 tablet 1 01/23/20 25 Active ferrous sulfate EC 325 (65 Fe) MG tabletIndicatio ns:Iron deficiency anemia secondary to inadequate dietary iron intake Take 1 tablet (325 mg total) by mouth daily with breakfast. 90 tablet 1 01/23/20 25 Active potassium chloride CR (KLOR-CON M) 20 MEQ tabletIndicatio ns:Hypokalemia Take 1 tablet (20 mEq total) by mouth daily. 90 tablet 1 11/10/19 25 2024 Discontinued ferrous sulfate EC 325 (65 Fe) MG tabletIndicatio ns:Iron deficiency anemia secondary to inadequate dietary iron intake Take 1 tablet (325 mg total) by mouth daily with breakfast. 90 tablet 1 11/10/19 25 2024 Discontinued amLODIPine (NORVASC) 5 MG tabletIndicatio ns:Primary hypertension Take one 5mg tab with one 2.5mg tab for total of 7.5mg PO QD 90 tablet 1 12/11/19 25 2024 Discontinued amLODIPine (NORVASC) 2.5 MG tabletIndicatio ns:Primary hypertension Take one 2.5mg tab with one 5mg tab for total of 7.5mg PO QD 90 tablet 1 12/11/19 25 2024 Discontinued benzonatate (TESSALON PERLES) 100 MG capsuleIndicati ons:Acute cough Take 1 capsule (100 mg total) by mouth 3 (three) times daily as needed for Cough. 20 capsule 12/31/19 25 2024 nirmatrelvir & ritonavir 300/100 (PAXLOVID) 20 x 150 MG & 10 x 100MG tablet packIndications :COVID-19 Take TWO nirmatrelvir 150 mg tablets along with ONE ritonavir 100 mg tablet, with all three tablets taken together, twice daily for 5 days. May take with or without food. Swallow tablets whole. Do not chew, break or crush. 30 each 12/31/19 25 2024 lidocaine viscous (XYLOCAINE) 2 % solution Take 10 mLs by mouth every 4 (four) hours as needed for Pain. Gargle and spit 100 mL 01/22/20 25 2024 amLODIPine (NORVASC) 5 MG tablet Take 1 tablet (5 mg total) by mouth daily. 2024 Discontinued Active Problems Problem Noted Date Diagnosed Date Fatty liver 05/19/2024 Overview (07/15/2024): Noted on CT 02/06/21 (BMI 27 at the time) 05/18/24 Fibroscan CAP 177, LSM 4.5 kPa Abnormal findings on diagnos tic imaging of other parts of digestive tract 04/07/2024 Generalized abdominal pain 04/07/2024 Chronic idiopathic constipation 04/07/2024 Radiculopathy, cervical region 07/23/2023 Menometrorrhagia 02/20/2023 Uterine prolapse 02/20/2023 S/P hysterectomy 02/20/2023 Foraminal stenosis of cervical region 11/13/2022 Cervical radiculopathy 11/13/2022 Thoracic back pain 07/09/2021 Lumbar radiculopathy 07/09/2021 Dysuria 07/08/2021 Hematochezia 07/08/2021 Right flank pain 07/08/2021 Chronic cough 12/12/2017 Foot pain 12/12/2017 Breast pain 07/16/2017 Acute neck pain 03/04/2017 Elevated blood pressure reading 01/14/2017 Yeast vaginitis 01/14/2017 Duodenitis 08/13/2016 Diverticulosis 08/09/2016 External hemorrhoids 08/09/2016 Chronic constipation 07/17/2016 Blood in stool 05/25/2016 Acid reflux disease 01/27/2016 Anemia 01/27/2016 Arthritis 01/27/2016 Chronic pain 01/27/2016 Skin lesion 10/12/2015 Eczema 12/18/2013 Impaired fasting glucose 09/17/2013 Iron deficiency anemia 09/17/2013 Restless legs syndrome 09/02/2013 Resolved Problems Problem Noted Date Diagnosed Date Resolved Date Need for DTaP vaccine 10/22/20172019 Encounter for routine gyneco logical examination with Papanicolaou smear of cervix 05/16/2015 12/25/2019 Encounter for preventive health examination 05/14/2013 12/25/2019 Encounters Date Type Department Care Team Description 01/22/2025 10:20 AM CDT Office Visit [address] [phone] Lise Posada MD Hypertension 01/22/2025 Results Follow-Up [address] [phone] Lise Posada MD IRON SAT PANEL (IRON,IBC,%SAT), CBC W/DIFF AUTOMATED, COMPREHENSIVE METABOLIC PANEL, PRO-BRAIN NATRIURETIC PEPTIDE 01/22/2025 Travel 01/21/2025 11:08 AM CDT - 01/21/2025 12:[address] [facility] [place] [address] Armando Bagley APRN Cough; Sore Throat Discharge Disposition: Home or Self Care (Routine Discharge) 01/21/2025 Scan [facility] Scanned[facility] 01/21/2025 Travel 01/16/2025 11:22 AM CDT - 01/16/2025 11:59 PM CDT Hospital Encounter [facility] [place] [address] Lise Posada MD Discharge Disposition: Home or Self Care (Routine Discharge) 01/16/2025 Travel 01/14/2025 8:40 AM CDT Office Visit [address] [phone] Lise Posada MD Edema (Both ankles and lower legs were swollen, the swelling lasted for 1 week and just went down yesterday) 01/14/2025 Travel 01/12/2025 Scan [facility] Scanned, [facility] 01/11/2025 MyChart Message Enc [address] [phone] Lise Posada MD Swollen legs and ankles 01/11/2025 Travel 12/30/2024 11:20 AM CDT Telemedicine [address] [phone] Lise Posada MD COVID-19 (Symptoms started a couple of weeks ago with cough and [place], itchy throat, a couple of days ago, worse; went to on Saturday12/28/2024, positive for COVID) 12/30/2024 Travel 12/10/2024 9:40 AM CDT Office Visit [address] [phone] Lise Posada MD Hypertension; Neck Pain (Going to PT - completed 12 sessions and to follow with PCP, patient reports has improved some but still experiencing pain; intermittent, local, no pain currently) 12/09/2024 5:10 PM CDT - 12/09/2024 11:59 PM CDT Hospital Encounter [facility] [place] [address] Lise Posada MD Delong, Brieanna L, PT Back Pain; Leg Pain Discharge Disposition: Home or Self Care (Routine Discharge) 12/09/2024 Travel 12/04/2024 2:15 PM CDT - 12/04/2024 11:59 PM CDT Hospital Encounter [facility] [place] [address] Lise Posada MD Dietz, Courtnie K, INSEMINATION WORKER Discharge Disposition: Home or Self Care (Routine Discharge) 12/04/2024 Travel 12/02/2024 2:11 PM CDT - 12/02/2024 11:59 PM CDT [facility] [place] [address] Lise Posada MD Lewis, Molly A, INSEMINATION WORKER Discharge Disposition: Home or Self Care (Routine Discharge) 12/02/2024 Travel 11/27/2024 3:45 PM CDT - 11/27/2024 11:59 PM CDT Hospital En[facility] [place] [address] Lise Posada MD Kohnen, Haley M, INSEMINATION WORKER Discharge Disposition: Home or Self Care (Routine Discharge) 11/27/2024 Travel 11/23/2024 4:15 PM CDT - 11/23/2024 11:59 PM CDT Hospital Encounter [facility] [place] [address] Karma Beckman, DPT Discharge Disposition: Home or Self Care (Routine Discharge) 11/23/2024 Travel 11/23/2024 Telephone [facility] [address] Tere Landa, PT Called To Cancel Office Appt. 11/20/2024 Telephone [facility] [address] Rachelle Perez, INSEMINATION WORKER No Show 11/20/2024 Travel 11/18/2024 2:10 PM CDT - 11/18/2024 11:59 PM CDT Hospital Encounter [facility] [place] [address] Lise Posada MD Delong, Brieanna L, PT Discharge Disposition: Home or Self Care (Routine Discharge) 11/18/2024 Travel 11/13/2024 10:00 AM CDT - 11/13/2024 11:59 PM CDT Hospital Encounter [facility] [address] Lise Posada MD Dietz, Courtnie K, INSEMINATION WORKER Discharge Disposition: Home or Self Care (Routine Discharge) 11/13/2024 Travel 11/09/2024 5:15 PM CDT - 11/09/2024 11:59 PM CDT Hospital Encounter [facility] [place] [address] Lise Posada MD Lewis, Molly A, INSEMINATION WORKER Discharge Disposition: Home or Self Care (Routine Discharge) 11/09/2024 9:00 AM CDT Office Visit [address] [phone] Lise Posada MD Hypertension; Hyperlipidemia; Dizziness (When first stands up and walking, balance feels off x almost 1 month); Chest Pain (Feels when reaching to grab something above her, started Saturday night after wok) 11/09/2024 Results Follow-Up [address] [phone] Lise Posada MD MG SCREENING W NARCISO CALZADA, COMPREHENSIVE METABOLIC PANEL, LIPID PANEL, Additional followed-up results: 2 11/09/2024 Travel 11/04/2024 3:00 PM CDT - 11/04/2024 11:59 PM CDT Hospital Encounter [facility] [place] [address] Lise Posada MD Haas, Matthew R, PT Discharge Disposition: Home or Self Care (Routine Discharge) 11/04/2024 Travel from Last 3 Months Immunizations Immunization Administration Dates Next Due Influenza Adult (Generic) 03/02/2021,03/04/2020 Tdap (Boostrix) 10/22/2017 Tdap (Generic) 10/22/2017 Family History Medical History Relation Comments HIV Brother Cancer Father Cancer Maternal Aunt Cancer Maternal Grandfather Cancer Maternal Uncle 1 Cancer Maternal Uncle 2 deace Diabetes Mother Heart Disease Mother Hypertension Mother Miscarriages / Stillbirths Mother Lung Disease Paternal Aunt Seizures Paternal Aunt Alzheimers Paternal Grandmother Cancer Paternal Uncle Asthma Sister 1 Diabetes Sister 1 Seizures Sister 1 Diabetes Sister 2 Seizures Son Early Neg Hx ADELINA Relation Status Comments Brother Father Maternal Aunt Maternal Grandfather Maternal Uncle 1 Maternal Uncle 2 Mother Other Other Paternal Aunt Paternal Grandmother Paternal Uncle Sister 1 Sister 2 Son Alive Social History Tobacco Use Types Packs/Day Years Used Date Smoking Tobacco: Never Smokeless Tobacco: Never Tobacco Cessation:Counseling Given: No Alcohol Use Standard Drinks/Week Comments Not Currently 1.7 (1 standard drink = 0.6 oz p ure alcohol) occasional PHQ-2 Answer Date Recorded Patient Health Questionnaire-2 Score 0 01/22/2025 Comments No Sex and Gender Information Value Date Recorded Sex Assigned at Female 03/06/2022 10:50 AM OUTPATIENT CODING SPECIALIST Legal Sex Female 11:21 AM OUTPATIENT CODING SPECIALIST Gender Identity Female 03/06/2022 10:50 AM OUTPATIENT CODING SPECIALIST Sexual Orientation Straight 03/06/2022 10 :50 AM OUTPATIENT CODING SPECIALIST 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 Last Filed Vital Signs Vital Sign Reading Time Taken Comments Blood Pressure 170/90 01/22/2025 11:[address] Olmos's manual read Pulse 56 01/22/2025 10:44 AM CDT Temperature 36.5 C (97.7 F) 01/22/2025 10:44 AM CDT Respiratory Rate 16 01/22/2025 10:4 4 AM CDT Oxygen Saturation 100% 01/22/2025 10: 44 AM CDT Inhaled Oxygen Concentration - - Weight 73.3 kg (161 lb 9.6 oz) 01/22/2025 10:44 AM CDT Height 162.6 cm (5' 4) 01/22/2025 10:4 4 AM CDT Body Mass Index 27.74 01/22/2025 10:44 AM CDT Plan of Treatment Upcoming Encounters Date Type Department Care Team (Latest Contact Info) Description 01/30/2025 2:[address] [facility] [place] [address] Lise Posada MD [address] [place] [address] 02/05/2025 11:00 AM CDT Office Visit [facility] [place] [address] [place] [phone] Lise Posada MD [address] [place] [address] 03/01/2025 1:30 PM OUTPATIENT CODING SPECIALIST Hospital Encounter [facility] [place] [address] Shelby Croft MD [address] [place] [address] [place] [address] 03/01/2025 1:30 PM OUTPATIENT CODING SPECIALIST - 03/01/2025 2:46 PM OUTPATIENT CODING SPECIALIST Surgery [facility] [place] [address] Shelby Croft MD [facility] [address] [place] [address] TRANSANAL HEMORRHOIDAL DEARTERIALIZATION 05/06/2025 11:00 AM OUTPATIENT CODING SPECIALIST Office Visit [facility]pecialty Care - [facility] [place] [address] [facility], [address] [place] [phone] Yulia Tim APRN [address] [facility] [address] [place] [address] Scheduled Procedures Name Priority Associated Diagnoses Date/Ti me HEMORRHOIDECTOMY THD HEMORRHOIDS K64.4 03/01/2025 1:30 PM OUTPATIENT CODING SPECIALIST Health Maintenance Due Date Last Done Comments Hepatitis A Vaccines (1 of 2 - Risk 2-dose series) 07/29/1994 Hepatitis B Vaccines (1 of 3 - 19+ 3-dose series) 07/29/1994 Annual Physical 05/08/2024 05/08/2023 COVID-19 Vaccine (3 - 2024- season) 2024 11/08/2020, 10/18/2020 Influenza Adult (#1) 2025 03/02/2021, 03/04/20 20 Mammogram Screening 07/31/2026 07/31/2024, 05/16/2023, 08/08/2017, Additional history exists DTaP, Tdap and Td Vaccines (3 - Td or Tdap) 10/23/2027 10/22/2017, 10/22/2017 Colorectal Cancer Screening Colonoscopy (10 Years) 07/13/2031 07/12/2021, 03/30/2021, 03/30/2021, Additional history exists Hepatitis C Completed 05/18/2024, 06/2024, 05/18/2024, Additional history exists PHQ-2 (Physician [place]) Completed 01/22/2025 Meningococcal B Vaccine Aged Out No l onger eligible based on patient's age to complete this topic Meningococcal Vaccine Aged Out No bernie evelin eligible based on patient's age to complete this topic Pneumococcal Vaccine: Pediatrics (0 to 5 Years) and At-Risk Patients (6 to 49 Years) Aged Out No longer eligible based on patient's age to complete this topic RSV Immunizations Under 20 Months Aged Out No longer eligible based on patient's age to complete this topic Goals Goal Patient Goal Type Associated Problems Recent Progress Patient-Stated? Author Autogenerat ed Goal Care Plan Autogenerated Problem No Angi Georges abstract maker Procedure Name Priority Date/Time Associated Diagnosis Comments CORONAVIRUS (COVID 19) STAT 11:19 AM CDT STREP A RAPID STAT 01/21/2025 11:19 AM CDT PRO-BRAIN NATRIURETIC PEPTIDE Routine 01/16/2025 11:25 AM CDT Edema of both lower legs COMPREHENSIVE METABOLIC PANEL Routine 01/16/2025 11:25 AM CDT Hypokalemia CBC W/DIFF AUTOMATED Routine 01/16/2025 11:25 AM CDT Iron deficiency anemia secondary to inadequate dietary iron intake IRON SAT PANEL (IRON,IBC,%SAT) Routine 01/16/2025 11:25 AM CDT Iron deficiency anemia secondary to inadequate dietary iron intake MG SCREENING W NARCISO ANDI DIGI Routine 07/31/2024 2:43 PM CDT Encounter for screening mammogram for malignant neoplasm of breast HEPATITIS PANEL,ACUTE Routine 11/27/2023 12:02 PM CDT Fatty liver Chronic RUQ pain COLONOSCOPY/EGD GENERIC (SCAN ORDER) 07/12/2021 from Last 3 Months or Most Recently Relevant to Health Maintenance Results * CORONAVIRUS (COVID 19) (01/21/2025 11:19 AM CDT) CORONAVIRUS SARS COV 2 RNA NEGATIVE NEGATIVE 01/21/2025 11:40 AM CDT [facility] Comment: NEGATIVE RESULTS DO NOT RULE OUT COVID 19 AND SHOULD NOT BE USED THE SOLE BASIS FOR TREATMENT OR PATIENT MANAGEMENT DECISIONS, INCLUDING INFECTION CONTROL DECISIONS. NEGATIVE RESULTS SHOULD BE CONSIDERED IN THE CONTEXT OF A PATIENT'S RECENT EXPOSURES, HISTORY AND THE PRESENCE OF CLINICAL SIGNS AND SYMPTOMS CONSISTENT WITH COVID 19. THE ID NOW COVID-19 2.0 TEST HAS BEEN AUTHORIZED BY THE FDA UNDER EAU FOR USE BY AUTHORIZED LABORATORIES. PERFORMED BY NUCLEIC ACID AMPLIFICATION FOR MOLECULAR QUALITATIVE DETECTION OF SARS-COV-2. SPECIMEN TYPE NASAL 01/21/2025 11:21 AM CDT [facility] NASAL STRUCTURE / Unknown 01/21/2025 11:19 AM CDT Armando Bagley APRN MICROBIOLOGY - GENERAL ORDER MARAL Final Result [facility] [address] [place] [address], * (ABNORMAL) STREP A RAPID (01/21/2025 11:19 AM CDT) SPECIMEN TYPE THROAT 01/21/2025 11:21 AM CDT [facility] RAPID STREP TEST POSITIVE(A) NEGATIVE 01/21/2025 11:40 AM CDT [facility] STRUCTURE OF ANTERIOR REGION OF NECK / Unknown 01/21/2025 11:19 AM CDT Armando Bagley APRN MICROBIOLOGY - GENERAL ORDER MARAL Final Result Performing Organization Address [facility] Co de Phone Number [facility] [address] [place] [id number], * PRO-BRAIN NATRIURETIC PEPTIDE (01/16/2025 11:25 AM CDT) PRO-B TYPE NATRIURETIC PEPTIDE 50 <125 PG/ML 01/16/2025 12:43 PM CDT [facility] Comment: CUT POINTS ESTABLISHED BY INTERNATIONAL COLLAB[employer]ATIVE ON NT PROBNP (ICON) STUDY (2006). AGE INDEPENDENT: <300 PG/ML HAS A 99% NEGATIVE PREDICTIVE VALUE FOR EXCLUDING ACUTE CHF <50 YEARS: >450 PG/ML IS CONSISTENT WITH ACUTE CHF 50-75 YEARS: >900 PG/ML IS CONSISTENT WITH ACUTE CHF >75 YEARS: >1800 PG/ML IS CONSISTENT WITH ACUTE CHF IN PATIENTS WITH RENAL INSUFFICIENCY (GFR <60), >1200 PG/ML YIELDS A DIAGNOSTIC SENSITIVITY AND SPECIFICITY OF 89% AND 72% FOR ACUTE CHF. 01/16/2025 11:2 5 AM CDT Lise Posada MD LABORATORY Final Result [facility] [address] [place] [address], * (ABNORMAL) IRON SAT PANEL (IRON,IBC,%SAT) (01/16/2025 11:25 AM CDT) IRON 26(L) 50.0 - 170.0 MCG/DL 01/16/2025 12:43 PM CDT [facility] IRON BINDING CAPACITY 318 250 - 450 MCG/DL 01/16/2025 12:43 PM CDT [facility] IRON SATURATION 8(L) 20 - 55 % 12:43 PM CDT [facility] 01/16/2025 11:2 5 AM CDT Lise Posada MD LABORATORY Final Result [facility] [address] [place] [address], * (ABNORMAL) COMPREHENSIVE METABOLIC PANEL (01/16/2025 11:25 AM CDT) GLUCOSE 95 70 - 99 MG/DL 01/16/2025 12:43 PM CDT [facility] BUN 5(L) 7 - 18 MG/DL 01/16/2025 12:43 PM CDT [facility] CREATININE S/P/B 0.52(L) 0.55 - 1.02 MG/DL 01/16/2025 12:43 PM CDT [facility] SODIUM S/P/B 144 136 - 145 MMOL/L 01/16/2025 12:43 PM CDT [facility] POTASSIUM S/P/B 3.3(L) 3.5 - 5.1 MMOL/L 01/16/2025 12:43 PM CDT [facility] CHLORIDE S/P/B 111 97 - 115 MMOL/L 01/16/2025 12:43 PM CDT [facility] CO2 28.3 21 - 32 MMOL/L 01/16/2025 12:43 PM CDT [facility] CALCIUM S/P/B 8.7 8.5 - 10.1 MG/DL 01/16/2025 12:43 PM CDT [facility] BILIRUBIN TOTAL S/P/B 0.2 0.2 - 1.2 MG/DL 01/16/2025 12:43 PM CDT [facility] Comment: THIS ASSAY IS NOT RECOMMENDED FOR PATIENTS UNDERGOING TREATMENT WITH ELTROMBOPAG DUE TO THE POTENTIAL FOR FALSELY ELEVATED RESULTS. TOTAL PROTEIN S/P/B 7.1 6.4 - 8.2 G/DL 01/16/2025 12:43 PM T [facility] ALBUMIN S/P/B 3.5 3.4 - 5.0 G/DL 01/16/2025 12:43 PM CDT [facility] AST 11(L) 15 - 37 U/L 01/16/2025 12:43 PM T [facility] ALT 27 14 - 55 U/L 01/16/2025 12:43 PM CDT [facility] ALKALINE PHOSPHATASE S/P/B 72 50 - 136 U/L 01/16/2025 12:43 PM T [facility] ANION GAP 4.7 2 - 10 MMOL/L 01/16/2025 12:43 PM T [facility] BUN CREATININE RATIO 9.5 6 - 26 01/16/2025 12:43 PM T [facility] A/G RATIO 1.0 1.0 - 2.0 RATIO 01/16/2025 12:43 PM T [facility] GFR ESTIMATE >90 >90 ML/MIN/1.7 3 M2 01/16/2025 12:43 PM CDT [facility] Comment: NOTE: eGFR is not calculated for patients <18 years of age or gender unknown. This is an estimated GFR calculation using the new CKD EPI creatinine equation without race and so does not require a correction factor for race. This estimated GFR should not be used for calculating drug doses. 01/16/2025 11:2 5 AM CDT Lise Posada MD LABORATORY Final Result [facility] [address] [place] [address], [place] [phone] * (ABNORMAL) CBC W/DIFF AUTOMATED (01/16/2025 11:25 AM CDT) WBC 7.26 4.5 - 11.0 x10'3/uL 01/16/2025 12:02 PM CDT [facility] RBC 4.12(L) 4.20 - 5.40 x10'6/uL 01/16/2025 12:02 PM CDT [facility] HGB 11.0(L) 12.0 - 16.0 G/DL 01/16/2025 12:02 PM CDT [facility] HCT 34.3(L) 38.0 - 48.0 % 01/16/2025 12:02 PM CDT [facility] MCV 83.3 81.0 - 99.0 FL 01/16/2025 12:02 PM CDT [facility] MCH 26.7(L) 27.0 - 31.0 PG 01/16/2025 12:02 PM CDT [facility] MCHC 32.1 32.0 - 36.0 G/DL 01/16/2025 12:02 PM CDT [facility] RDW 18.4(H) 11.5 - 14.5 % 01/16/2025 12:02 PM CDT [facility] PLT 288 130 - 400 x10'3/uL 01/16/2025 12:02 PM CDT [facility] MPV 11.0 9.3 - 12.2 FL 01/16/2025 12:02 PM CDT [facility] DIFFERENTIAL TYPE AUTOMATED DIFFERENTIAL 01/16/2025 12:02 PM CDT [facility] NEUTROPHILS % 59.6 % 01/16/2025 12:02 PM CDT [facility] LYMPHOCYTES % 30.4 % 01/16/2025 12:02 PM CDT [facility] MONOCYTES % 6.3 % 01/16/2025 12:02 PM CDT [facility] EOSINOPHILS 2.6 % 01/16/2025 12:02 PM CDT [facility] BASOPHILS 0.8 % 01/16/2025 12:02 PM CDT [facility] IMMATURE GRANS % 0.3 % 01/17/20 12:02 PM CDT [facility] ABS. NEUTROPHILS 4.32 1.80 - 7.70 x10'3/uL 01/16/2025 12:02 PM CDT [facility] ABS. LYMPHOCYTES 2.21 1.00 - 4.80 x10'3/uL 01/16/2025 12:02 PM CDT [facility] ABS. MONOCYTES 0.46 0.24 - 0.86 x10'3/uL 01/16/2025 12:02 PM CDT [facility] ABS. EOSINOPHILS 0.19 0.04 - 0.36 x10'3/uL 01/16/2025 12:02 PM CDT [facility] ABS. BASOPHILS 0.06 0.01 - 0.08 x10'3/uL 01/16/2025 12:02 PM CDT [facility] ABS. IMMATURE GRANULOCYTES 0.02 0.00 - 0.49 x10'3/uL 01/16/2025 12:02 PM CDT [facility] 01/16/2025 11:2 5 AM CDT Lise Posada MD LABORATORY Final Result [facility] [address] [place] [address], * MG SCREENING W NARCISO ANDI DIGI (07/31/2024 2:43 PM CDT) Anatomical Region Laterality Modality Breast Bilateral Mammography 07/31/2024 4:54 PM CDT Impressions 07/31/2024 4:57 PM CDT IMPRESSION: No significant interval change. No mammographic evidence of malignancy. RECOMMENDATION: Routine ScreeningBilateral OVERALL IMAGING ASSESSMENT: ACR BI-RADS 2 - BENIGN FINDING(S). Ordered By: LISE POSADA Interpreted By: Diego Elias, 07/31/2024 4:54 PM Narrative 07/31/2024 4:57 PM CDT [facility] [place] [address] EXAMINATION: MG SCREENING W NARCISO ANDI DIGI INDICATIONS: Screening TECHNIQUE: Digital full field CC and MLO screening mammography bilaterally to include 3-D Tomosynthesis technique. This study was read with the assistance of a computer-aided detection system. HISTORY: No reported breast complaint. No documented personal or first degree family history of breast cancer. No documented prior breast procedure. COMPARISON: 05/16/2023 and 08/08/2017. TISSUE DENSITY: There are scattered areas of fibroglandular density. FINDINGS: No suspicious microcalcification or mass. Stable asymmetries bilaterally. No developing asymmetry or architectural distortion. No axillary adenopathy. Lise Posada MD MAMMO Final Result * HEPATITIS PANEL,ACUTE (11/27/2023 12:02 PM CDT) HEPATITIS B SURFACE AG NON-REACTI VE NON-REACTI VE 11/27/2023 6:32 PM CDT [facility] HEP B CORE IGM NON-REACTI VE NON-REACTI VE 11/27/2023 2:27 PM CDT [facility] HAV IGM NON-REACTI VE NON-REACTI VE 11/27/2023 2:27 PM CDT [facility] HEPATITIS C AB NON-REACTI VE NON-REACTI VE 11/27/2023 2:27 PM CDT [facility] 11/27/2023 12:0 2 PM CDT Lise Posada MD LABORATORY Final Result [facility] [address] [place] [address], [place] [phone] * COLONOSCOPY/EGD GENERIC (07/12/2021) 07/12/2021 Narrative 07/12/2021 Ordered by an unspecified provider. Documents Scanned SCANNING Final Result from Last 3 Months or Most Recently Relevant to Health Maintenance Additional Health Concerns Active Problems Noted Date Diagnosed Date Autogenerated Problem 01/25/2025 Insurance [employer] Care Teams Radio/Tv Technician Relationship Specialty Start Date End Date Lise Posada MD PCP - General FAMILY PRACTICE 12/31/17
--- OUTSIDE RECORDS SUMMARY | 2025-01-29 15:32 | XMS_ITS | Encounter Summary ---
Author Organization [facility] Address [facility] [place] [address] Care Team Providers Care Emergency Medicine Medical Director Name Role Phone Lise Posada MD Primary Care Provider [phone] Reason for Referral * Consultation/Treatment (Urgent) - Closed Specialty Diagnoses / Procedures Referred By Caitlin murguia Referred To Contact GENERAL SURGERY Diagnoses Hemorrhoids, unspecified hemorrhoid type Anemia, unspecified type Procedures OFFICE/OUTPT VISIT,NEW,LEVL III OFFICE/OUTPT VISIT,NEW,LEVL IV OFFICE/OUTPT VISIT,NEW,LEVL V OFFICE/OUTPT VISIT,EST,LEVL III OFFICE/OUTPT VISIT,EST,LEVL IV OFFICE/OUTPT VISIT,EST,LEVL V Lise Posada MD [address] [place] [address] Phone: tel: fax: Shelby Croft MD [facility] [address] Phone: tel: fax: Referral ID Status Reason Start Date Expiration Date Visits Re quested Visits Authorized [id number] Closed 12/29/2021 12/29/2022 99 99 Scheduling Instructions Pt's Hgb dropped from 11.5 to 8.4 in 1 month. Pt reports worsening hemorrhoidal bleeding. Please eval/treat. Encounter Details Date Type Department Care Team (Late st Contact Info) Description 12/29/2021 Kukupiahart Message Enc [facility] Medical Group [facility] [address] [place] [address] Lise Posada MD [address] [place] [address] Hemoglobin Social History Tobacco Use Types Packs/Day Years [...] Sex Assigned at Female 03/06/2022 10:50 AM THERAPEUTIC SUPPORT STAFF Legal Sex Female 11:21 AM THERAPEUTIC SUPPORT STAFF Gender Identity Female 03/06/2022 10:50 AM THERAPEUTIC SUPPORT STAFF Sexual Orientation Straight 03/06/2022 10 :50 AM THERAPEUTIC SUPPORT STAFF 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 No / Unsure 12/28/2021 8:47 AM CDT documented as of this encounter Progress Notes * Lise Posada MD - 12/29/2021 1:05 PM CDTFrom: Ginette Brooks To: Dr. Lise Posada Sent: 12/29/2021 12:22 PM CDT Subject: Hemoglobin Dr Psoada i got my test results back I saw that Hemoglobin went back down is there anything eles i need to know about my results documented in this encounter Plan of Treatment Upcoming Encounters Date Type Department Care Team (Latest Contact Info) Description 01/30/2025 2:[address] [facility] [address] Lise Posada MD [address] [place] [address] 02/05/2025 11:00 AM CDT Office Visit [facility] - [place] [address] [place] [address] Lise Posada MD [address] [place] [address] 03/01/2025 1:30 PM THERAPEUTIC SUPPORT STAFF Hospital Encounter [facility] [address] Shelby Croft MD [facility]4 [facility] [address] [place] [phone] 03/01/2025 1:30 PM THERAPEUTIC SUPPORT STAFF - 03/01/2025 2:46 PM THERAPEUTIC SUPPORT STAFF Surgery [facility] OR [facility] [address] Shelby Croft MD [facility]4 [facility] [address] [place] [address] TRANSANAL HEMORRHOIDAL DEARTERIALIZATION 05/06/2025 11:00 AM THERAPEUTIC SUPPORT STAFF Office Visit [facility]ialty Care - [place] [facility] [address] [facility] [place] [address] Yulia Tim, IMAGING ACCOUNT MANAGER 3 [facility] [address] [place] [address] Scheduled Procedures Name Priority Associated Diagnoses Date/Ti me HEMORRHOIDECTOMY THD HEMORRHOIDS K64.4 03/01/2025 1:30 PM THERAPEUTIC SUPPORT STAFF Scheduled Referrals Name Type Priority Associated Diagnoses Orde r Schedule Ambulatory referral to General Surgery (OTHER) Referral Routine Hemorrhoids, unspecified hemorrhoid type Anemia, unspecified type Ordered: 12/29/2021 documented as of this encounter Visit Diagnoses Diagnosis Hemorrhoids, unspecified hemorrhoid type- Primary Anemia, unspecified type documented in this encounter Additional Health Concerns Infection Onset Date Last Indicated Resolved Time COVID-19 Rule Out 01/21/2025 01/21/2025 01/21/2025 11:40 AM CDT Assessment Noted Time PHQ-9 Depression Total Score: 0 03/16/20 21 1:54 PM THERAPEUTIC SUPPORT STAFF documented as of this encounter Care Teams Emergency Medicine Medical Director Relationship Specialty Start Date End Date Lise Posada MD PCP - General FAMILY PRACTICE 12/31/17 documented as of this encounter
--- OUTSIDE RECORDS SUMMARY | 2025-01-29 15:32 | XMS_ITS | Encounter Summary ---
Author Organization [facility] Address [address] [place] [address] Care Team Providers Care Swimming Pool Maintenance Supervisor Name Role Phone Lise Posada MD Primary Care Provider [phone] Encounter Details Date Type Department Care Team (Late st Contact Info) Description 01/05/2022 MyChart Message Enc [facility] Medical Group Multispecialty Care - [address], [address] [place] [phone] Joseph Sommers MD [address] [place] [address] Lock toes Social History Tobacco Use Types Packs/Day Years [...] Sex Assigned at Female 03/06/2022 10:50 AM DISPATCH MACHINE RUNNER Legal Sex Female 11:21 AM DISPATCH MACHINE RUNNER Gender Identity Female 03/06/2022 10:50 AM DISPATCH MACHINE RUNNER Sexual Orientation Straight 03/06/2022 10 :50 AM DISPATCH MACHINE RUNNER 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 No / Unsure 12/28/2021 8:47 AM CDT documented as of this encounter Progress Notes * Sridevi Gotti RN - 01/08/2022 10:26 AM CDT Please advise * Sridevi Gotti RN - 01/08/2022 7:52 AM CDT Please advise documented in this encounter Plan of Treatment Upcoming Encounters Date Type Department Care Team (Latest Contact Info) Description 01/30/2025 2:30 PM CDT Appointment [facility] [address] Lise Posada MD [address] [place] [address] 02/05/2025 11:00 AM CDT Office Visit [facility] Medical Group Family Medicine [facility] [address] [place] [address] Lise Posada MD [address] [place] [address] 03/01/2025 1:30 PM DISPATCH MACHINE RUNNER Hospital Encounter [facility] [place] [address] Shelby Croft MD [address] [place] [address] [place] [address] 03/01/2025 1:30 PM DISPATCH MACHINE RUNNER - 03/01/2025 2:46 PM DISPATCH MACHINE RUNNER Surgery [facility] [place] [address] Shelby Croft MD [address] [facility] [address] [place] [address] TRANSANAL HEMORRHOIDAL DEARTERIALIZATION 05/06/2025 11:00 AM DISPATCH MACHINE RUNNER Office Visit [facility] Medical Group Multispecialty Care - [facility] 3 [facility], [address] [place] [address] Yulia Tim APRN 3 [facility] [address] [place] [address] Scheduled Procedures Name Priority Associated Diagnoses Date/Ti me HEMORRHOIDECTOMY THD HEMORRHOIDS K64.4 03/01/2025 1:30 PM DISPATCH MACHINE RUNNER documented as of this encounter Visit Diagnoses Not on filedocumented in this encounter Additional Health Concerns Infection Onset Date Last Indicated Resolved Time COVID-19 Rule Out 01/21/2025 01/21/2025 01/21/2025 11:40 AM CDT Assessment Noted Time PHQ-9 Depression Total Score: 0 03/16/20 21 1:54 PM DISPATCH MACHINE RUNNER documented as of this encounter Care Teams Swimming Pool Maintenance Supervisor Relationship Specialty Start Date End Date Lise Posada MD PCP - General FAMILY PRACTICE 12/31/17 documented as of this encounter
--- OUTSIDE RECORDS SUMMARY | 2025-01-29 15:32 | XMS_ITS | Encounter Summary ---
Author Organization [facility] Address [address] [place] [address] Care Team Providers Care Solid Plasterer Name Role Phone Lise Posada MD Primary Care Provider [phone] Encounter Details Date Type Department Care Team (Late st Contact Info) Description 02/15/2023 Therapy Plan [facility] Services [address] [place], [place] [phone] Conchis Johns MD [address] [place] [address] Social History Tobacco Use Types Packs/Day Years Used Date Smoking Tobacco: Never Smokeless Tobacco: Never Alcohol Use Standard Drinks/Week Comments Yes 0 (1 standard drink = 0.6 oz pur e alcohol) occasional PHQ-2 Answer Date Recorded Patient Health Questionnaire-2 Score 2 05/30/2022 Comments No Sex and Gender Information Value Date Recorded Sex Assigned at Female 03/06/2022 10:50 AM CORPORATE LOGISTICS MANAGER Legal Sex Female 11:21 AM CORPORATE LOGISTICS MANAGER Gender Identity Female 03/06/2022 10:50 AM CORPORATE LOGISTICS MANAGER Sexual Orientation Straight 03/06/2022 10 :50 AM CORPORATE LOGISTICS MANAGER Occupation Industry Job Start Date Job End Date [facility] [facility] Not on file Not on file Not on file documented as of this encounter Plan of Treatment Upcoming Encounters Date Type Department Care Team (Latest Contact Info) Description 01/30/2025 2:[address] [place] [address] Lise Posada MD [address] [place] [address] 02/05/2025 11:00 AM CDT Office Visit [facility] Family Medicine - [address] [phone] Lise Posada MD [address] [place] [address] 03/01/2025 1:30 PM CORPORATE LOGISTICS MANAGER Hospital Encounter [facility] [place] [address] Shelby Croft MD [address] [facility] [address] [place] [phone] 03/01/2025 1:30 PM CORPORATE LOGISTICS MANAGER - 03/01/2025 2:46 PM CORPORATE LOGISTICS MANAGER [facility] [place] [address] Shelby Croft MD [address] [facility] [address] [place] [address] TRANSANAL HEMORRHOIDAL DEARTERIALIZATION 05/06/2025 11:00 AM CORPORATE LOGISTICS MANAGER Office Visit [facility] 3 [facility], [address] [place] [address] Yulia Tim APRN [address] [facility] [facility] [address] [place] [address] Scheduled Procedures Name Priority Associated Diagnoses Date/Ti me HEMORRHOIDECTOMY THD HEMORRHOIDS K64.4 03/01/2025 1:30 PM CORPORATE LOGISTICS MANAGER documented as of this encounter Visit Diagnoses Diagnosis Anemia- Primary Anemia, unspecified documented in this encounter Additional Health Concerns Infection Onset Date Last Indicated Resolved Time COVID-19 Rule Out 01/21/2025 01/21/2025 01/21/2025 11:40 AM CDT Assessment Noted Time PHQ-9 Depression Total Score: 0 03/16/20 21 1:54 PM CORPORATE LOGISTICS MANAGER documented as of this encounter Care Teams Solid Plasterer Relationship Specialty Start Date End Date Lise Posada MD PCP - General FAMILY PRACTICE 12/31/17 documented as of this encounter
--- OUTSIDE RECORDS SUMMARY | 2025-01-29 15:32 | XMS_ITS | Encounter Summary ---
Author Organization [facility] Address [facility]6 [place] [address] Care Team Providers Care Receiving Checker Name Role Phone Lise Posada MD Primary Care Provider [phone] Encounter Details Date Type Department Care Team (Late st Contact Info) Description 01/08/2022 MyChart Message Enc [facility] Medical Group Family Medicine [facility] [address] [place] [address] [place] [address] [place] [address] lock toes on both feet Social History Tobacco Use Types Packs/Day Years [...] Sex Assigned at Female 03/06/2022 10:50 AM FINANCE INSURANCE MANAGER Legal Sex Female 11:21 AM FINANCE INSURANCE MANAGER Gender Identity Female 03/06/2022 10:50 AM FINANCE INSURANCE MANAGER Sexual Orientation Straight 03/06/2022 10 :50 AM FINANCE INSURANCE MANAGER Occupation Industry Job Start Date Job [...] PM CDT [facility]ment [facility] [place] [address] Lise Posada MD [address] [place] [address] 02/05/2025 11:00 AM CDT Office Visit [facility] Medical Group Family Medicine - [address] [phone] Lise Posada MD [address] [place] [address] 03/01/2025 1:30 PM FINANCE INSURANCE MANAGER Hospital Encounter [facility] [place] [address] Shelby Croft MD [address] [place] [address] [place] [address] 03/01/2025 1:30 PM FINANCE INSURANCE MANAGER - 03/01/2025 2:46 PM FINANCE INSURANCE MANAGER Surgery [facility] [place] [address] Shelby Croft MD [address] [place] [address] [place] [address] TRANSANAL HEMORRHOIDAL DEARTERIALIZATION 05/06/2025 11:00 AM FINANCE INSURANCE MANAGER Office Visit [facility] Medical Group Multispecialty Care - [facility] 3 [facility], [address] [place] [address] Yulia Tim APRN 3 [facility] [address] [place] [address] Scheduled Procedures Name Priority Associated Diagnoses Date/Ti me HEMORRHOIDECTOMY THD HEMORRHOIDS K64.4 03/01/2025 1:30 PM FINANCE INSURANCE MANAGER documented as of this encounter Visit Diagnoses Not on filedocumented in this encounter Additional Health Concerns Infection Onset Date Last Indicated Resolved Time COVID-19 Rule Out 01/21/2025 01/21/2025 01/21/2025 11:40 AM CDT Assessment Noted Time PHQ-9 Depression Total Score: 0 03/16/20 21 1:54 PM FINANCE INSURANCE MANAGER documented as of this encounter Care Teams Receiving Checker Relationship Specialty Start Date End Date Lise Posada MD PCP - General FAMILY PRACTICE 12/31/17 documented as of this encounter
--- OUTSIDE RECORDS SUMMARY | 2025-01-29 15:32 | XMS_ITS | Encounter Summary ---
Author Organization [facility] Address [facility]6 [place] [address] Care Team Providers Care Automotive Production Worker Name Role Phone Lise Posada MD Primary Care Provider [phone] Encounter Details Date Type Department Care Team (Late st Contact Info) Description 01/18/2022 MyCePrept Message Enc [facility] Medical Group Family Medicine [facility] [address] [place] [address] [place] [address] [place] [address] Blood work Social History Tobacco Use [...] Sex Assigned at Female 03/06/2022 10:50 AM PHP ENGINEER Legal Sex Female 11:21 AM PHP ENGINEER Gender Identity Female 03/06/2022 10:50 AM PHP ENGINEER Sexual Orientation Straight 03/06/2022 10 :50 AM PHP ENGINEER 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 No / Unsure 01/19/2022 12:07 PM CDT documented as of this encounter Functional Status * Calculated C-SSRS Risk Score (Lifetime/Recent) Answer Date of Assessment Author Status No Risk Indicated 01/19/2022 1:01 PM CDT Brea Schrader RN Active * Villalba Suicide Severity Rating Scale (Screener/Recent Self-Report) Question Answer Date of Assessment Author Status 1. Wish to be (Past 1 Month) No 01/19/2022 1:01 PM CDT Brea Schrader RN Active 2. Non-Specific Active Suicidal Thoughts (Past 1 Month) No 01/19/2022 1:01 PM CDT Brea Schrader RN Active 6. Suicidal Behavior (Lifetime) No 01/19/2022 1:01 PM CDT Brea Schrader RN Active documented as of this encounter Plan of Treatment Upcoming Encounters Date Type Department Care Team (Latest Contact Info) Description 01/30/2025 2:30 PM [place] [address] Lise Posada MD [facility]6 [place] [address] 02/05/2025 11:00 AM CDT Office Visit [facility] Medical Group Family Medicine [facility] [address] [place] [phone] Lise Posada MD [address] [place] [address] 03/01/2025 1:30 PM PHP ENGINEER Hospital Encounter [facility] [place] [address] Shelby Croft MD [address] [facility] [address] [place] [address] 03/01/2025 1:30 PM PHP ENGINEER - 03/01/2025 2:46 PM PHP ENGINEER Surgery [facility] [address] Shelby Croft MD [address] [facility] [address] [place] [address] TRANSANAL HEMORRHOIDAL DEARTERIALIZATION 05/06/2025 11:00 AM PHP ENGINEER Office Visit [facility] Medical Group Multispecialty Care - [facility] 3 [facility], [address] [place] [address] Yulia Tim APRN 3 [facility] [address] [place] [address] Scheduled Procedures Name Priority Associated Diagnoses Date/Ti me HEMORRHOIDECTOMY THD HEMORRHOIDS K64.4 03/01/2025 1:30 PM PHP ENGINEER documented as of this encounter Visit Diagnoses Not on filedocumented in this encounter Additional Health Concerns Infection Onset Date Last Indicated Resolved Time COVID-19 Rule Out 01/21/2025 01/21/2025 01/21/2025 11:40 AM CDT Assessment Noted Time PHQ-9 Depression Total Score: 0 03/16/20 1:54 PM PHP ENGINEER documented as of this encounter Care Teams Automotive Production Worker Relationship Specialty Start Date End Date Lise Posada MD PCP - General FAMILY PRACTICE 12/31/17 documented as of this encounter
--- OUTSIDE RECORDS SUMMARY | 2025-01-29 15:32 | XMS_ITS | Encounter Summary ---
Author Organization [facility] Address [address] [place] [address] Care Team Providers Care Perforator Operator Name Role Phone Lise Posada MD Primary Care Provider [phone] Encounter Details Date Type Department Care Team (Late st Contact Info) Description 05/07/2023 MyCraksult Message Enc [facility] Family Medicine [facility] [address] [place] [phone] [place] [address] [place] [address] Test results Social History Tobacco Use Types Packs/Day Years Used Date Smoking Tobacco: Never Smokeless Tobacco: Never Alcohol Use Standard Drinks/Week Comments Yes 0 (1 standard drink = 0.6 oz pur e alcohol) occasional PHQ-2 Answer Date Recorded Patient Health Questionnaire-2 Score 1 05/08/2023 Comments No Sex and Gender Information Value Date Recorded Sex Assigned at Female 03/06/2022 10:50 AM INSTRUCTIONAL TECHNOLOGY FACILITATOR Legal Sex Female 11:21 AM INSTRUCTIONAL TECHNOLOGY FACILITATOR Gender Identity Female 03/06/2022 10:50 AM INSTRUCTIONAL TECHNOLOGY FACILITATOR Sexual Orientation Straight 03/06/2022 10 :50 AM INSTRUCTIONAL TECHNOLOGY FACILITATOR 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 Question Answer Date of Assessment Author Status Little interest or pleasure in doing things Not at all 05/08/2023 2:07 PM Bambi Mcghee MA Active Feeling down, depressed, or hopeless Several days 05/08/2023 2:07 PM Bambi Mcghee MA Active Patient Health Questionnaire-2 Score 1 05/08/2023 2:07 PM Arvin Mcghee MA Active * Question Answer Date of Assessment Author Status Trouble falling or staying asleep, or sleeping too much Nearly every day 05/08/2023 2:07 PM Bambi Mcghee MA Active Feeling tired or having little energy More than half the days 05/08/2023 2:07 PM Bambi Mcghee MA Active Poor appetite or overeating Not at all 05/08/2023 2:07 PM Bambi Mcghee MA Active Feeling bad about yourself - or that you are a failure or have let yourself or your family down More than half the days 05/08/2023 2:07 PM Bambi Mcghee MA Active Trouble concentrating on things, such as reading the newspaper or watching television More than half the days 05/08/2023 2:07 PM Bambi Mcghee MA Active Moving or speaking so slowly that other people could have noticed? Or the opposite - being so fidgety or restless that you have been moving around a lot more than usual. Not at all 05/08/2023 2:07 PM Bambi Mcghee MA Active Thoughts that you would be better off or hurting yourself in some way Not at all 05/08/2023 2:07 PM Bambi Mcghee MA Active Patient Health Questionnaire-9 Score 10 05/08/2023 2:07 PM Bambi Mcghee MA Active * If you checked off any problems on this questionnaire so far, Question Answer Date of Assessment Author Status How difficult have these problems made it for you to do your work, take care of things at home, or get along with other people? Somewhat difficult 05/08/2023 2:07 PM INSTRUCTIONAL TECHNOLOGY FACILITATOR Bambi Yost MA Active documented as of this encounter Plan of Treatment Upcoming Encounters Date Type Department Care Team (Latest Contact Info) Description 01/30/2025 2:30 PM CDT Appointment [facility] [address] [place] [address] [place] [address] 02/05/2025 11:00 AM CDT Office Visit [facility] Family Medicine - [address] [phone] Lise Posada MD [address] [place] [address] 03/01/2025 1:30 PM INSTRUCTIONAL TECHNOLOGY FACILITATOR Hospital Encounter [facility] [place] [address] Shelby Croft MD [address] [place] [address] [place] [id number] 03/01/2025 1:30 PM INSTRUCTIONAL TECHNOLOGY FACILITATOR - 03/01/2025 2:46 PM INSTRUCTIONAL TECHNOLOGY FACILITATOR Surgery [facility] [place] [address] Shelby Croft MD [address] [place] [address] [address] [place], [place] [phone] TRANSANAL HEMORRHOIDAL DEARTERIALIZATION 05/06/2025 11:00 AM INSTRUCTIONAL TECHNOLOGY FACILITATOR Office Visit [facility] Multispecialty Care - [facility] [address] [place] [address] Yulia Tim, PRINCIPAL JAVA SOFTWARE ENGINEER [address] [place] [address] Scheduled Procedures Name Priority Associated Diagnoses Date/Ti me HEMORRHOIDECTOMY THD HEMORRHOIDS K64.4 03/01/2025 1:30 PM INSTRUCTIONAL TECHNOLOGY FACILITATOR documented as of this encounter Visit Diagnoses Not on filedocumented in this encounter Additional Health Concerns Infection Onset Date Last Indicated Resolved Time COVID-19 Rule Out 01/21/2025 01/21/2025 01/21/2025 11:40 AM CDT Assessment Noted Time PHQ-9 Depression Total Score: 0 03/16/20 21 1:54 PM INSTRUCTIONAL TECHNOLOGY FACILITATOR documented as of this encounter Care Teams Perforator Operator Relationship Specialty Start Date End Date Lise Posada MD PCP - General FAMILY PRACTICE 12/31/17 documented as of this encounter
--- OUTSIDE RECORDS SUMMARY | 2025-01-29 15:32 | XMS_ITS | Encounter Summary ---
Author Organization [facility] Address [facility] [place] [address] Care Team Providers Care Bow Making Machine Operator Name Role Phone Lise Posada MD Primary Care Provider [phone] Encounter Details Date Type Department Care Team (Late st Contact Info) Description 01/11/2025 MyChart Message Enc [facility] Family Medicine [facility] [address] [place] [address] [place] [address] [place] [address] Swollen legs and ankles Social History Tobacco Use Types Packs/Day Years Used Date Smoking Tobacco: Never Smokeless Tobacco: Never Alcohol Use Standard Drinks/Week Comments Not Currently 1.7 (1 standard drink = 0.6 oz p ure alcohol) occasional PHQ-2 Answer Date Recorded Patient Health Questionnaire-2 Score 0 01/14/2025 Comments No Sex and Gender Information Value Date Recorded Sex Assigned at Female 03/06/2022 10:50 AM UNDERGRADUATE INTERN Legal Sex Female 11:21 AM UNDERGRADUATE INTERN Gender Identity Female 03/06/2022 10:50 AM UNDERGRADUATE INTERN Sexual Orientation Straight 03/06/2022 10 :50 AM UNDERGRADUATE INTERN 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 Question Answer Date of Assessment Author Status Little interest or pleasure in doing things Not at all 01/14/2025 8:30 AM CDT Steve Kelley MA Ac tive Feeling down, depressed, or hopeless Not at all 01/14/2025 8:30 AM CDT Steve Kelley MA Active Patient Health Questionnaire-2 Score 0 01/14/2025 8:30 AM CDT Steve Kelley MA Active documented as of this encounter Plan of Treatment Upcoming Encounters Date Type Department Care Team (Latest Contact Info) Description 01/30/2025 2:[address] [facility] [place] [address] Lise Posada MD [address] [place] [address] 02/05/2025 11:00 AM CDT Office Visit [facility] Family Medicine - [address] [phone] Lise Posada MD [address] [place] [address] 03/01/2025 1:30 PM UNDERGRADUATE INTERN Hospital Encounter [facility] [place] [address] Shelby Croft MD [address] [facility] [address] [place] [address] 03/01/2025 1:30 PM UNDERGRADUATE INTERN - 03/01/2025 2:46 PM UNDERGRADUATE INTERN Surgery [facility] [place] [address] Shelby Croft MD [facility] [address] [place] [address] TRANSANAL HEMORRHOIDAL DEARTERIALIZATION 05/06/2025 11:00 AM UNDERGRADUATE INTERN Office Visit [facility] Multispecialty Care - [facility] [address] [facility], [address] [place] [address] Yulia Tim APRN [address] [facility] [address] [place] [address] Scheduled Procedures Name Priority Associated Diagnoses Date/Ti me HEMORRHOIDECTOMY THD HEMORRHOIDS K64.4 03/01/2025 1:30 PM UNDERGRADUATE INTERN documented as of this encounter Visit Diagnoses Not on filedocumented in this encounter Additional Health Concerns Infection Onset Date Last Indicated Resolved Time COVID-19 Rule Out 01/21/2025 01/21/2025 01/21/2025 11:40 AM CDT Assessment Noted Time PHQ-9 Depression Total Score: 5 11/10/19 25 9:04 AM CDT documented as of this encounter Care Teams Bow Making Machine Operator Relationship Specialty Start Date End Date Lise Posada MD PCP - General FAMILY PRACTICE 12/31/17 documented as of this encounter
--- OUTSIDE RECORDS SUMMARY | 2025-01-29 15:32 | XMS_ITS | Encounter Summary ---
Author Organization [facility] Address [address] [place] [address] Care Team Providers Care Production Crew Supervisor Name Role Phone Lise Posada MD Primary Care Provider [phone] Encounter Details Date Type Department Care Team (Latest Contact Info) Description 01/21/2025 Scan HEALTH INFO SRVCS Scanned, Doc Med Group Social History Tobacco Use Types Packs/Day Years Used Date Smoking Tobacco: Never Smokeless Tobacco: Never Alcohol Use Standard Drinks/Week Comments Not Currently 1.7 (1 standard drink = 0.6 oz p ure alcohol) occasional PHQ-2 Answer Date Recorded Patient Health Questionnaire-2 Score 0 01/22/2025 Comments No Sex and Gender Information Value Date Recorded Sex Assigned at Female 03/06/2022 10:50 AM POLE TESTER Legal Sex Female 11:21 AM POLE TESTER Gender Identity Female 03/06/2022 10:50 AM POLE TESTER Sexual Orientation Straight 03/06/2022 10 :50 AM POLE TESTER 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 Question Answer Date of Assessment Author Status Little interest or pleasure in doing things Not at all 01/22/2025 10:44 AM CDT Taina Zelaya MA Acti ve Feeling down, depressed, or hopeless Not at all 01/22/2025 10:44 AM CDT Taina Zelaya MA Active Patient Health Questionnaire-2 Score 0 01/22/2025 10:44 AM CDT Taina Zelaya M A Active * Calculated C-SSRS Risk Score (Lifetime/Recent) Answer Date of Assessment Author Status No Risk Indicated 01/21/2025 10:19 AM CDT Viola Corrales RN Active * [place] Suicide Severity Rating Scale (Screener/Recent Self-Report) Question Answer Date of Assessment Author Status 1. Wish to be (Past 1 Month) No 01/21/2025 10:19 AM EDWINT Viola Corrales RN Activ e 2. Non-Specific Active Suicidal Thoughts (Past 1 Month) No 01/21/2025 10:19 AM EDWINT Viola Corrales RN Activ e 6. Suicidal Behavior (Lifetime) No 01/21/2025 10:19 AM EDWINT Viola Corrales RN Activ e documented as of this encounter Plan of Treatment Upcoming Encounters Date Type Department Care Team (Latest Contact Info) Description 01/30/2025 2:30 PM CDT Appointment [facility] [address] Lise Posada MD [address] [place] [address] 02/05/2025 11:00 AM CDT Office Visit [facility] Family Medicine [facility] [address] [place] [phone] Lise Posada MD [address] [place] [address] 03/01/2025 1:30 PM [facility] Hospital Encounter [facility] [place] [address] Shelby Croft MD [address] [facility] [address] [place] [address] 03/01/2025 1:30 PM POLE TESTER - 03/01/2025 2:46 PM POLE TESTER Surgery [facility] [place] [address] Shelby Croft MD [address] [facility] [address] [place] [address] TRANSANAL HEMORRHOIDAL DEARTERIALIZATION 05/06/2025 11:00 AM POLE TESTER Office Visit [facility] Multispecialty Care - [facility] [address] [facility], [address] [place] [address] Yulia Tim, [employer]ARM[employer] [address] [facility] [address] [place] [address] Scheduled Procedures Name Priority Associated Diagnoses Date/Ti me HEMORRHOIDECTOMY THD HEMORRHOIDS K64.4 03/01/2025 1:30 PM POLE TESTER documented as of this encounter Goals Goal Patient Goal Type Associated Problems Recent Progress Patient-Stated? Author Autogenerat ed Goal Care Plan Autogenerated Problem No Angi Georges RN documented as of this encounter Visit Diagnoses Not on filedocumented in this encounter Additional Health Concerns Active Problems Noted Date Diagnosed Date Autogenerated Problem 01/25/2025 Infection Onset Date Last Indicated Resolved Time COVID-19 Rule Out 01/21/2025 01/21/2025 01/21/2025 11:40 AM CDT Assessment Noted Time PHQ-9 Depression Total Score: 5 11/10/19 25 9:04 AM CDT documented as of this encounter Care Teams Production Crew Supervisor Relationship Specialty Start Date End Date Lise Posada MD PCP - General FAMILY PRACTICE 12/31/17 documented as of this encounter
--- OUTSIDE RECORDS SUMMARY | 2025-01-29 15:32 | XMS_ITS | Encounter Summary ---
Author Organization [facility] Address [facility] [place] [address] Care Team Providers Care Campus Recruiting Coordinator Name Role Phone Lise Posada MD Primary Care Provider [phone] Encounter Details Date Type Department Care Team (Late st Contact Info) Description 12/27/2021 MyChart Message Enc [facility] Family Medicine [facility] [address] [place] [address] [place] [address] [place] [address] Gastric surgery Social History Tobacco Use Types Packs/Day [...] Sex Assigned at Female 03/06/2022 10:50 AM RUBBER MILL TENDER Legal Sex Female 11:21 AM RUBBER MILL TENDER Gender Identity Female 03/06/2022 10:50 AM RUBBER MILL TENDER Sexual Orientation Straight 03/06/2022 10 :50 AM RUBBER MILL TENDER Occupation Industry Job Start Date Job End [...] 2:[address] [place] [address] Lise Posada MD [address] [place] [address] 02/05/2025 11:00 AM CDT Office Visit [facility] Family Medicine - [address] [phone] Lise Posada MD [address] [place] [address] 03/01/2025 1:30 PM RUBBER MILL TENDER Hospital Encounter [facility] [place] [address] Shelby Croft MD [address] [place] [address] [place] [address] 03/01/2025 1:30 PM RUBBER MILL TENDER - 03/01/2025 2:46 PM RUBBER MILL TENDER Surgery [facility] [address] Shelby Croft MD [address] [place] [address] [place] [address] TRANSANAL HEMORRHOIDAL DEARTERIALIZATION 05/06/2025 11:00 AM RUBBER MILL TENDER Office Visit [facility] Multispecialty Care - [facility] [address] [facility], [address] [place] [address] Yulia Tim APRN [address] [facility] [address] [place] [address] Scheduled Procedures Name Priority Associated Diagnoses Date/Ti me HEMORRHOIDECTOMY THD HEMORRHOIDS K64.4 03/01/2025 1:30 PM RUBBER MILL TENDER documented as of this encounter Visit Diagnoses Not on filedocumented in this encounter Additional Health Concerns Infection Onset Date Last Indicated Resolved Time COVID-19 Rule Out 01/21/2025 01/21/2025 01/21/2025 11:40 AM CDT Assessment Noted Time PHQ-9 Depression Total Score: 0 03/16/20 21 1:54 PM RUBBER MILL TENDER documented as of this encounter Care Teams Campus Recruiting Coordinator Relationship Specialty Start Date End Date Lise Posada MD PCP - General FAMILY PRACTICE 12/31/17 documented as of this encounter
--- OUTSIDE RECORDS SUMMARY | 2025-01-29 15:33 | XMS_ITS | Encounter Summary ---
Author Organization [facility] Address [address] [place] [address] Care Team Providers Care Trampoline Team Coach Name Role Phone Lise Posada MD Primary Care Provider [phone] Encounter Details Date Type Department Care Team (Latest Contact Info) Description 01/22/2025 Results Follow-Up [facility] Family Medicine [facility] [address] [place] [address] Lise Posada MD [address] [place] [address] IRON SAT PANEL (IRON,IBC,%SAT), CBC W/DIFF AUTOMATED, COMPREHENSIVE METABOLIC PANEL, PRO-BRAIN NATRIURETIC PEPTIDE Social History Tobacco Use Types Packs/Day Years Used Date Smoking Tobacco: Never Smokeless Tobacco: Never Alcohol Use Standard Drinks/Week Comments Not Currently 1.7 (1 standard drink = 0.6 oz p ure alcohol) occasional PHQ-2 Answer Date Recorded Patient Health Questionnaire-2 Score 0 01/22/2025 Comments No Sex and Gender Information Value Date Recorded Sex Assigned at Female 03/06/2022 10:50 AM MACARONI PRESS OPERATOR Legal Sex Female 11:21 AM MACARONI PRESS OPERATOR Gender Identity Female 03/06/2022 10:50 AM MACARONI PRESS OPERATOR Sexual Orientation Straight 03/06/2022 10 :50 AM MACARONI PRESS OPERATOR Occupation Industry Job Start Date Job [...] AM CDT Taina Zelaya M A Active documented as of this encounter Plan of Treatment Upcoming Encounters Date Type Department Care Team (Latest Contact Info) Description 01/30/2025 2:30 PM CDT Appointment [place] [address] Lise Posada MD [address] [place] [address] 02/05/2025 11:00 AM CDT Office Visit [facility] Family Medicine - [address] [phone] Lise Posada MD [address] [place] [address] 03/01/2025 1:30 PM MACARONI PRESS OPERATOR Hospital Encounter [facility] [place] [address] Shelby Croft MD [facility] [address] [place] [address] 03/01/2025 1:30 PM MACARONI PRESS OPERATOR - 03/01/2025 2:46 PM MACARONI PRESS OPERATOR [facility] [address] Shelby Croft MD [address] [facility] [address] [place] [address] TRANSANAL HEMORRHOIDAL DEARTERIALIZATION 05/06/2025 11:00 AM MACARONI PRESS OPERATOR Office Visit [facility] Multispecialty Care - [facility] [address] [place] [address] Yulia Tim APRN [address] [facility] [address] [place] [address] Scheduled Procedures Name Priority Associated Diagnoses Date/Ti me HEMORRHOIDECTOMY THD HEMORRHOIDS K64.4 03/01/2025 1:30 PM MACARONI PRESS OPERATOR documented as of this encounter Goals Goal Patient Goal Type Associated Problems Recent Progress Patient-Stated? Author Autogenerat ed Goal Care Plan Autogenerated Problem No Angi Georges RN documented as of this encounter Visit Diagnoses Not on filedocumented in this encounter Additional Health Concerns Active Problems Noted Date Diagnosed Date Autogenerated Problem 01/25/2025 Assessment Noted Time PHQ-9 Depression Total Score: 5 11/09/ 25 9:04 AM CDT documented as of this encounter Care Teams Trampoline Team Coach Relationship Specialty Start Date End Date Lise Posada MD PCP - General FAMILY PRACTICE 12/31/17 documented as of this encounter
--- OUTSIDE RECORDS SUMMARY | 2025-02-15 09:28 | XMS_ITS | Clinical Summary ---
Author Organization [facility] Address [address] [place] [address] Care Team Providers Care Venue Coordinator Name Role Phone Lise Posada MD Primary Care Provider [phone] Louise Starkey RN Unavailable Unavailable Olivia Torres CIVIL ENGINEERING DESIGNER-BALL ASSEMBLER Unavailable [phone] Source Comments [facility],non-owned Affiliates and Associated Physician Practices is amultiple site organization consisting of ambulatory clinics and hospital sitesin [place], [place], [place] and [place]. This disclosure is being madepursuant to the Care Everywhere program and may not contain all information available regarding this patient. Last updated 18.[facility] Allergies No known active allergies Medications [...] Encounters Date Type Department Care Team Description 02/09/2025 Refill [facility] - Dermatology [address] [place] [phone] Arabella Rodriguez MD Refill Request 12/10/2024 Refill [facility] - GI [address] [place] [phone] Olivia Torres, CIVIL ENGINEERING DESIGNER-BALL ASSEMBLER Refill Request from Last 3 Months Family [...] PM CDT Legal Sex Female 6:10 PM PACKAGING SPECIALIST Gender Identity Female 07/12/2021 7:16 PM CDT Sexual Orientation Straight 07/12/2021 7: 16 PM CDT Last Filed Vital Signs Vital Sign Reading Time Taken Comments Blood Pressure 132/71 05/18/2024 10:32 AM PACKAGING SPECIALIST Pulse 58 05/18/2024 10:32 AM PACKAGING SPECIALIST Temperature 37 C (98.6 F) 05/18/2024 10:32 AM PACKAGING SPECIALIST Respiratory Rate 16 02/02/2022 1:26 PM CDT Oxygen Saturation 99% 05/18/2024 10:32 AM PACKAGING SPECIALIST Inhaled Oxygen Concentration - - Weight 72.2 kg (159 lb 3.2 oz) 05/18/2024 10:32 AM PACKAGING SPECIALIST Height 165.1 cm (5' 5) 05/18/2024 10:32 AM PACKAGING SPECIALIST Body Mass Index 26.49 05/18/2024 10:32 AM PACKAGING SPECIALIST Plan of Treatment Upcoming Encounters Date Type Department Care Team (Late st Contact Info) Description 05/18/2025 12:30 PM PACKAGING SPECIALIST Procedure visit [facility] - GI [address] [place] [phone] 05/18/2025 1:00 PM PACKAGING SPECIALIST Office Visit [facility] - GI [address] [place] [phone] Olivia Torres, CIVIL ENGINEERING DESIGNER-BALL ASSEMBLER [address] [place] [address] [address] [place] [address] Health Maintenance Due Date Last Done Comments COLOGUARD (AGES 45-75) - COLON CA SCREENING 1975 CT COLONOGRAPHY - COLON CA SCREENING 1975 FIT - COLON CA SCREENING 1975 FLEX SIG - COLON CA SCREENING 1975 DTAP/TDAP/TD VACCINES (1 - Tdap) 07/29/1994 HEPATITIS B VACCINE (1 of 3 - 19+ 3-dose series) 07/29/1994 PAP SMEAR 07/29/1996 DEPRESSION SCREENING 04/15/2024 COVID-19 VACCINE (3 - 2024- season) 2024 11/08/2020, 10/18/2020 INFLUENZA VACCINE (#1) 2024 03/02/2021, 2019 MAMMOGRAM 05/16/2025 05/16/2023, 04/2023, 08/08/2017, Additional history exists ZOSTER VACCINE (1 of 2) 07/29/2025 SCREENING FOR DIABETES 05/18/2027 , 07/10/2021, 07/09/2021, Additional history exists LIPID TESTING 11/26/2028 11/27/2023, 09/13, 11/13/2021 COLON MONITORING 07/11/2031 07/10/2021, , 03/30/2021, Additional history exists COLONOSCOPY - COLON CA SCREENING 07/11/2031 07/10/2021, 07/10/2021, 03/30/2021, Additional history exists Colorectal Cancer Screening 07/11/2031 HIV SCREENING Completed 07/08/2021, 02/17/2018 HEPATITIS C SCREENING Completed 07/10/2021, 018 HIB VACCINE Aged Out No longer eligi [...] Management General On track( 025 4:44 PM PACKAGING SPECIALIST) Louise Srivastava, RN Note: Expected end date: ongoing Interventions: Take all medications as prescribed Let your doctor know right away about any changes in your medications Make sure to request a refill of your medication at least one week prior to your last dose Procedures Procedure Name Priority Date/Time Associated Diagnosis Comments COMPREHENSIVE METABOLIC PANEL Routine 05/18/2024 12:11 PM PACKAGING SPECIALIST Hepatic steatosis ENDOSCOPY, COLON, DIAGNOSTIC Routine 07/10/2021 2:43 PM CDT HEPATITIS C AB SCREEN RFLX NAAT QUANT AM Draw 07/10/2021 4:40 AM CDT HIV-1 HIV-2 ANTIBODY + HIV P24 AG PANEL STAT 07/08/2021 10:38 PM CDT from Last 3 Months or Most Recently Relevant to Health Maintenance Results * (ABNORMAL) COMPREHENSIVE METABOLIC PANEL (05/18/2024 12:11 PM PACKAGING SPECIALIST) BUN 7 7 - 26 mg/dL 05/18/2024 1:28 PM [facility] Creatinine 0.48(L) 0.56 - 0.96 mg/dL 05/18/2024 1:28 PM [facility] Sodium 142 136 - 145 mmol/L 05/18/2024 1:28 PM [facility] Potassium 2.8(L) 3.5 - 4.5 mmol/L 05/18/2024 1:28 PM [facility] Chloride 107 98 - 107 mmol/L 05/18/2024 1:28 PM [facility] CO2 28 22 - 29 mmol/L 05/18/2024 1:28 PM [facility] Glucose 93 70 - 99 mg/dL 05/18/2024 1:28 PM [facility] Calcium 9.1 8.4 - 10.2 mg/dL 05/18/2024 1:28 PM [facility] Protein Total 7.2 6.0 - 8.3 g/dL 05/18/2024 1:28 PM [facility] Albumin 3.9 3.4 - 5.0 g/dL 05/18/2024 1:28 PM [facility] Bilirubin Total 0.3 0.2 - 1.2 mg/dL 05/18/2024 1:28 PM [facility] Alkaline Phosphatase 60 40 - 150 U/L 05/18/2024 1:28 PM [facility] ALT 14 5 - 55 U/L 05/18/2024 1:28 PM [facility] AST 16 5 - 34 U/L 05/18/2024 1:28 PM [facility] Anion Gap 7 6 - 16 05/18/2024 1:28 PM [facility] BUN/Creatinine Ratio 15 7 - 23 05/18/2024 1:28 PM [facility] Osmolality Calculated 292 275 - 295 mOsm/kg 05/18/2024 1:28 PM [facility] Albumin/Globulin Ratio 1.2 1.1 - 2.3 05/18/2024 1:28 PM [facility] eGFR by CKD-EPI >90 >=90 mL/min/1.7 3 m2 05/18/2024 1:28 PM [facility] Blood BLOOD SPECIMEN / Unknown Lab Venipuncture / Unknown 05/18/2024 12:11 PM PACKAGING SPECIALIST 05/18/2024 12:52 PM [facility] us Olivia Torres CIVIL ENGINEERING DESIGNER-BALL ASSEMBLER LAB - CHEMISTRY ORD ERABLES Final Result [facility] [address] [place] [address], [facility] [phone] * ENDOSCOPY, COLON, DIAGNOSTIC (07/10/2021 2:43 PM [...] bowel preparation was evaluated using the BBPS (Olga Bowel Preparation Scale) with scores of: Right [...] entire procedure. Procedure Code(s): --- Professional --- 61469, Colonoscopy, flexible; with biopsy, single or multiple Diagnosis Code(s): --- Professional --- K64.8, Other hemorrhoids K63.5, Polyp of colon K92.1, Melena (includes Hematochezia) K57.30, Diverticulosis of large intestine without perforation or abscess without bleeding CPT copyright 2019 [employer]. All rights reserved. The codes documented in this report are preliminary and upon party plan sales unit sales leader review may be revised to meet current compliance requirements. Peter Caldwell MD 07/10/2021 3:18:26 PM Note Initiated On: 07/10/2021 2:43 PM Number of Addenda: [address] 07/10/2021 2:43 PM CDT Peter Caldwell MD GI PROCEDURE ORDERAB LES Edited Result - Final [facility] * HEPATITIS C AB SCREEN RFLX NAAT QUANT (07/10/2021 4:40 AM CDT) Hepatitis C Antibody Non-react edil Non-reac tive 07/10/2021 6:23 AM CDT [facility] Comment:Hepatitis C Antibody screen indicates no [...] 4:40 AM CDT 07/10/2021 5:00 AM CDT us Ivan Collier MD LAB - CHEMISTRY ORDERABLES F inal Result [address] [address], [place] [phone] * HIV-1 HIV-2 ANTIBODY + HIV P24 AG PANEL (07/08/2021 10:38 PM CDT) HIV Antigen/Antibod y 1 & 2 Non-reacti ve Non-react edil 07/08/2021 11:31 PM CDT [facility] Comment:No Laboratory eviden ce of HIV infection. Blood BLOOD SPECIMEN / Unknown Venipuncture / Unknown 07/08/2021 10:38 PM CDT 07/08/2021 10:42 PM CDT us Deshaun Luna MD LAB - CHEMISTRY ORDERABLES Final Result Performing Organization Address City/[facility]/ZIP Co de Phone Number [address] [address], [place] [phone] from Last 3 Months or Most Recently Relevant to Health Maintenance Insurance [facility] Advance Directives * Full Code (Latest Code Status on File) Date Activated Date Inactivated Comments 07/08/2021 7:36 PM 07/10/2021 10:00 PM Care Teams Venue Coordinator Relationship Specialty Start Date End Date Lise Posada MD [address] [place] [address] PCP - General Family Medicine 02/17/18 Louise Starkey, RN Registered Nurse Hepatology 05/18/24 Olivia Torres, CIVIL ENGINEERING DESIGNER-BALL ASSEMBLER [address] [facility] [address] [place] [address] Nurse Practitioner Nurse Practitioner Family 05/19/24
[2025-02-15 09:48] LABS: CRP < 0.5 mg/dL (<1.0)
[2025-02-16 16:08] LABS: Deamidated Gliadin Abs, IgA 5 units (0-19); Deamidated Gliadin Abs, IgG 1 units (0-19); Immunoglobulin A, Qn 384 mg/dL (87-352)
== END 2025-02-15 09:00 | disposition home or self-care (01) ==
PROVIDERS: Visit Provider Nurse Practitioner Family
DX: D50.9 Iron deficiency anemia, unspecified (principal)
CPT/HCPCS: 36415; 82784; 86140; 86231; 86258

== ENCOUNTER 2025-02-18 08:06 | Outpatient (CLI) | payer OTHER, SELFPAY ==
--- NOTE | ~2025-02-18 | NM_ITS ---
EXAM/PROCEDURE: [id number] HISTORY: ruq pain COMPARISON: None available. TECHNIQUE: Standard technique for hepatobiliary scintigraphy performed. Radiotracer: 4.8 mCi technetium 99m Choletec. Following visualization of small bowel activity, patient was given 8 ounces of ensure. FINDINGS: Prompt homogeneous liver uptake noted. The gallbladder is seen within 20 minutes. Following administration of cholecystokinin, gallbladder ejection fraction at 52.5 minutes calculated at 76%. IMPRESSION: Gallbladder ejection fraction at the high end of normal range. Reviewed, dictated and finalized at location A. T PROMOTER
--- OUTSIDE RECORDS SUMMARY | 2025-02-18 17:01 | XMS_ITS | Encounter Summary ---
Author Organization [facility] Address [facility] [place] [address] Care Team Providers Care Disbursing Officer Name Role Phone Lise Posada MD Primary Care Provider [phone] Encounter Details Date Type Department Care Team (Late st Contact Info) Description 01/11/2025 MyChart Message Enc [facility] Medical Group Family Medicine [facility] [address] [place] [address] [place] [address] [place] [address] Swollen legs and ankles Social History [...] Sex Assigned at Female 03/06/2022 10:50 AM COMMERCIAL OR INSTITUTIONAL CLEANER Legal Sex Female 11:21 AM COMMERCIAL OR INSTITUTIONAL CLEANER Gender Identity Female 03/06/2022 10:50 AM COMMERCIAL OR INSTITUTIONAL CLEANER Sexual Orientation Straight 03/06/2022 10 :50 AM COMMERCIAL OR INSTITUTIONAL CLEANER Occupation Industry Job Start Date Job [...] Department Care Team (Latest Contact Info) Description 02/24/2025 11:40 AM COMMERCIAL OR INSTITUTIONAL CLEANER Office Visit [facility] Family Medicine - [address] [address] Lise Posada MD [address] [place] [address] 03/01/2025 4:01 PM COMMERCIAL OR INSTITUTIONAL CLEANER Hospital Encounter [facility] [place] [address] Shelby Croft MD [address] [place] [address] 03/01/2025 4:01 PM COMMERCIAL OR INSTITUTIONAL CLEANER - 03/01/2025 5:17 PM COMMERCIAL OR INSTITUTIONAL CLEANER Surgery [facility] [place] [address] Shelby Croft MD [address] [place] [address] [place] [address] TRANSANAL HEMORRHOIDAL DEARTERIALIZATION 05/06/2025 11:00 AM COMMERCIAL OR INSTITUTIONAL CLEANER Office Visit [facility] Multispecialty Care - [facility] [address] [facility], [address] [place] [address] Yulia Tim, PRINT JOURNALIST 3 [facility] [address] [place] [address] Scheduled Procedures Name Priority Associated Diagnoses Date/Ti me HEMORRHOIDECTOMY THD HEMORRHOIDS K64.4 03/01/2025 4:01 PM COMMERCIAL OR INSTITUTIONAL CLEANER documented as of this encounter Visit Diagnoses Not on filedocumented in this encounter Additional Health Concerns Infection Onset Date Last Indicated Resolved Time COVID-19 Rule Out 01/21/2025 01/21/2025 01/21/2025 11:40 AM CDT Assessment Noted Time PHQ-9 Depression Total Score: 5 11/10/19 25 9:04 AM CDT documented as of this encounter Care Teams Disbursing Officer Relationship Specialty Start Date End Date Lise Posada MD PCP - General FAMILY PRACTICE 12/31/17 documented as of this encounter
--- OUTSIDE RECORDS SUMMARY | 2025-02-18 17:01 | XMS_ITS | Encounter Summary ---
Author Organization [facility] Address [facility] [place] [address] Care Team Providers Care Section Chief Name Role Phone Lise Posada MD Primary Care Provider [phone] Encounter Details Date Type Department Care Team (Late st Contact Info) Description 01/07/2024 [place] Message Enc [facility] Medical Group Family Medicine [address] [address] [employer] [facility] Provider Medication refill Social History Tobacco Use Types Packs/Day Years Used Date Smoking Tobacco: Never Smokeless Tobacco: Never Alcohol Use Standard Drinks/Week Comments Yes 0 (1 standard drink = 0.6 oz pur e alcohol) occasional PHQ-2 Answer Date Recorded Patient Health Questionnaire-2 Score 0 12/20/2023 Comments No Sex and Gender Information Value Date Recorded Sex Assigned at Female 03/06/2022 10:50 AM NURSE COORDINATOR Legal Sex Female 11:21 AM NURSE COORDINATOR Gender Identity Female 03/06/2022 10:50 AM NURSE COORDINATOR Sexual Orientation Straight 03/06/2022 10 :50 AM NURSE COORDINATOR 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 Thanks! ~Dr Olmos documented in this encounter Plan of Treatment Upcoming Encounters Date Type Department Care Team (Latest Contact Info) Description 02/24/2025 11:40 AM NURSE COORDINATOR Office Visit [facility] Family Medicine - [place] [address] [place] [phone] Lise Posada MD [address] [place] [address] 03/01/2025 4:01 PM NURSE COORDINATOR Hospital Encounter [facility] [place] [address] Shelby Croft MD [facility] [address] [place] [address] 03/01/2025 4:01 PM NURSE COORDINATOR - 03/01/2025 5:17 PM NURSE COORDINATOR Surgery [facility] [place] [address] Shelby Croft MD [facility] [address] [place] [address] TRANSANAL HEMORRHOIDAL DEARTERIALIZATION 05/06/2025 11:00 AM NURSE COORDINATOR Office Visit [facility] Multispecialty Care - [facility] 3 [facility], [address] [place] [address] Yulia Tim APRN 3 [facility] [address] [place] [address] Scheduled Procedures Name Priority Associated Diagnoses Date/Ti me HEMORRHOIDECTOMY THD HEMORRHOIDS K64.4 03/01/2025 4:01 PM NURSE COORDINATOR documented as of this encounter Visit Diagnoses Not on filedocumented in this encounter Additional Health Concerns Infection Onset Date Last Indicated Resolved Time COVID-19 Rule Out 01/21/2025 01/21/2025 01/21/2025 11:40 AM CDT Assessment Noted Time PHQ-9 Depression Total Score: 5 09/19/19 24 10:57 AM CDT documented as of this encounter Care Teams Section Chief Relationship Specialty Start Date End Date Lise Posada MD PCP - General FAMILY PRACTICE 12/31/17 documented as of this encounter
--- OUTSIDE RECORDS SUMMARY | 2025-02-18 17:01 | XMS_ITS | Encounter Summary ---
Author Organization [facility] Address [facility] [place] [address] Care Team Providers Care Supervisor Fish Bait Processing Name Role Phone Lise Posada MD Primary Care Provider [phone] Encounter Details Date Type Department Care Team (Late st Contact Info) Description 01/05/2024 MyChart Message Enc [facility] Medical Group Family Medicine [facility] [address] [place] [address] Lise Posada MD [address] [place] [address] Medication Social History Tobacco Use Types Packs/Day Years Used Date Smoking Tobacco: Never Smokeless Tobacco: Never Alcohol Use Standard Drinks/Week Comments Yes 0 (1 standard drink = 0.6 oz pur e alcohol) occasional PHQ-2 Answer Date Recorded Patient Health Questionnaire-2 Score 0 12/20/2023 Comments No Sex and Gender Information Value Date Recorded Sex Assigned at Female 03/06/2022 10:50 AM STAVE BOLT EQUALIZER Legal Sex Female 11:21 AM STAVE BOLT EQUALIZER Gender Identity Female 03/06/2022 10:50 AM STAVE BOLT EQUALIZER Sexual Orientation Straight 03/06/2022 10 :50 AM STAVE BOLT EQUALIZER 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 [place] [address] Shelby Croft MD [address] [place] [address] [place] [address] 03/01/2025 4:01 PM STAVE BOLT EQUALIZER - 03/01/2025 5:17 PM STAVE BOLT EQUALIZER Surgery [place] [address] Shelby Croft MD [facility]4 [facility] [address] [place] [address] TRANSANAL HEMORRHOIDAL DEARTERIALIZATION 05/06/2025 11:00 AM STAVE BOLT EQUALIZER Office Visit [facility] Multispecialty Care - [facility] 3 [facility], [address] [place] [address] Yulia Tim, TORSTEN 3 [facility] [address] [place] [address] Scheduled Procedures Name Priority Associated Diagnoses Date/Ti me HEMORRHOIDECTOMY THD HEMORRHOIDS K64.4 03/01/2025 4:01 PM STAVE BOLT EQUALIZER documented as of this encounter Visit Diagnoses Not on filedocumented in this encounter Additional Health Concerns Infection Onset Date Last Indicated Resolved Time COVID-19 Rule Out 01/21/2025 01/21/2025 01/21/2025 11:40 AM CDT Assessment Noted Time PHQ-9 Depression Total Score: 5 09/19/19 24 10:57 AM CDT documented as of this encounter Care Teams Supervisor Fish Bait Processing Relationship Specialty Start Date End Date Lise Posada MD PCP - General FAMILY PRACTICE 12/31/17 documented as of this encounter
--- OUTSIDE RECORDS SUMMARY | 2025-02-18 17:01 | XMS_ITS | Encounter Summary ---
Author Organization [facility] Address [facility] [place] [address] Care Team Providers Care Field Technical Assistant Name Role Phone Lise Posada MD Primary Care Provider [phone] Encounter Details Date Type Department Care Team (Late st Contact Info) Description 01/08/2022 MyChart Message Enc [facility] Medical Group Family Medicine [facility] [address] [place] [address] [place] [address] [place] [address] lock toes on both feet Social [...] Sex Assigned at Female 03/06/2022 10:50 AM JR. SYSTEMS ADMINISTRATOR Legal Sex Female 11:21 AM JR. SYSTEMS ADMINISTRATOR Gender Identity Female 03/06/2022 10:50 AM JR. SYSTEMS ADMINISTRATOR Sexual Orientation Straight 03/06/2022 10 :50 AM JR. SYSTEMS ADMINISTRATOR Occupation Industry Job Start Date Job End [...] (Latest Contact Info) Description 02/24/2025 11:40 AM JR. SYSTEMS ADMINISTRATOR Office Visit [facility] Family Medicine - [place] [address] [place] [phone] Lise Posada MD [address] [place] [address] 03/01/2025 4:01 PM JR. SYSTEMS ADMINISTRATOR Hospital Encounter [facility] [place] [address] Shelby Croft MD [facility] [address] [place] [phone] 03/01/2025 4:01 PM JR. SYSTEMS ADMINISTRATOR - 03/01/2025 5:17 PM JR. SYSTEMS ADMINISTRATOR Surgery [facility] [place] [address] Shelby Croft MD [address] [facility] [address] [place] [address] TRANSANAL HEMORRHOIDAL DEARTERIALIZATION 05/06/2025 11:00 AM JR. SYSTEMS ADMINISTRATOR Office Visit [facility] Multispecialty Care - [facility] 3 [facility], [address] [place] [phone] Yulia Tim APRN 3 [facility] [address] [place] [address] Scheduled Procedures Name Priority Associated Diagnoses Date/Ti me HEMORRHOIDECTOMY THD HEMORRHOIDS K64.4 03/01/2025 4:01 PM JR. SYSTEMS ADMINISTRATOR documented as of this encounter Visit Diagnoses Not on filedocumented in this encounter Additional Health Concerns Infection Onset Date Last Indicated Resolved Time COVID-19 Rule Out 01/21/2025 01/21/2025 01/21/2025 11:40 AM CDT Assessment Noted Time PHQ-9 Depression Total Score: 0 03/16/20 21 1:54 PM JR. SYSTEMS ADMINISTRATOR documented as of this encounter Care Teams Field Technical Assistant Relationship Specialty Start Date End Date Lise Posada MD PCP - General FAMILY PRACTICE 12/31/17 documented as of this encounter
--- OUTSIDE RECORDS SUMMARY | 2025-02-18 17:01 | XMS_ITS | Encounter Summary ---
Author Organization [facility] Address [facility] [place] [address] Care Team Providers Care Senior Construction Manager Name Role Phone Lise Posada MD Primary Care Provider Reason for Referral * Consultation/Treatment (Urgent) - Closed Specialty Diagnoses / Procedures Referred By Caitlin murguia Referred To Contact GENERAL SURGERY Diagnoses Hemorrhoids, unspecified hemorrhoid type Anemia, unspecified type Procedures OFFICE/OUTPT VISIT,NEW,LEVL III OFFICE/OUTPT VISIT,NEW,LEVL IV OFFICE/OUTPT VISIT,NEW,LEVL V OFFICE/OUTPT VISIT,EST,LEVL III OFFICE/OUTPT VISIT,EST,LEVL IV OFFICE/OUTPT VISIT,EST,LEVL V Lise Posada MD [address] [place] [address] Phone: tel: fax: Shelby Croft MD [facility] [address] Phone: tel: fax: Referral ID Status Reason Start Date Expiration Date Visits Re quested Visits Authorized [id number] Closed 12/29/2021 12/29/2022 99 99 Scheduling Instructions Pt's Hgb dropped from 11.5 to 8.4 in 1 month. Pt reports worsening hemorrhoidal bleeding. Please eval/treat. Encounter Details Date Type Department Care Team (Late st Contact Info) Description 12/29/2021 ET [employer] Message Enc [facility] Medical Group [facility] [address] [place] [address] Lise Posada MD [address] [place] [address] Hemoglobin Social History Tobacco Use [...] Sex Assigned at Female 03/06/2022 10:50 AM ATTRACTIONS ASSOCIATE Legal Sex Female 11:21 AM ATTRACTIONS ASSOCIATE Gender Identity Female 03/06/2022 10:50 AM ATTRACTIONS ASSOCIATE Sexual Orientation Straight 03/06/2022 10 :50 AM ATTRACTIONS ASSOCIATE Occupation Industry Job Start Date Job End [...] 12/29/2021 12:22 PM CDT Subject: Hemoglobin Dr Posada i got my test results back I saw that Hemoglobin went back down is there anything eles i need to know about my results documented in this encounter Plan of Treatment Upcoming Encounters Date Type Department Care Team (Latest Contact Info) Description 02/24/2025 11:40 AM ATTRACTIONS ASSOCIATE Office Visit [facility] Family Medicine - [place] [address] [place] [address] Lise Posada MD [address] [place] [address] 03/01/2025 4:01 PM ATTRACTIONS ASSOCIATE Hospital Encounter [facility] [place] [address] Shelby Croft MD [address] [facility] [address] [place] [address] 03/01/2025 4:01 PM ATTRACTIONS ASSOCIATE - 03/01/2025 5:17 PM ATTRACTIONS ASSOCIATE [place] [address] Shelby Croft MD [address] [facility] [address] [place] [address] TRANSANAL HEMORRHOIDAL DEARTERIALIZATION 05/06/2025 11:00 AM ATTRACTIONS ASSOCIATE Office Visit [facility] Multispecialty Care - [facility] 3 [facility], [address] [place] [address] Yulia Tim, TORSTEN 3 [facility] [address] [place] [address] Scheduled Procedures Name Priority Associated Diagnoses Date/Ti me HEMORRHOIDECTOMY THD HEMORRHOIDS K64.4 03/01/2025 4:01 PM ATTRACTIONS ASSOCIATE Scheduled Referrals Name Type Priority Associated Diagnoses [...] Total Score: 0 03/16/20 21 1:54 PM ATTRACTIONS ASSOCIATE documented as of this encounter Care Teams Senior Construction Manager Relationship Specialty Start Date End Date Lise Posada MD PCP - General FAMILY PRACTICE 12/31/17 documented as of this encounter
--- OUTSIDE RECORDS SUMMARY | 2025-02-18 17:01 | XMS_ITS | Encounter Summary ---
Author Organization [facility] Address [address] [place] [address] Care Team Providers Care Newspaper Columnist Name Role Phone Lise Posada MD Primary Care Provider [phone] Encounter Details Date Type Department Care Team (Late st Contact Info) Description 06/08/2024 MyChart Message Enc [facility] Medical Group Family Medicine [facility] [address] [place] [address] [place] [address] [place] [address] pain medication Social History Tobacco Use Types Packs/Day Years Used Date Smoking Tobacco: Never Smokeless Tobacco: Never Alcohol Use Standard Drinks/Week Comments Not Currently 0 (1 standard drink = 0.6 oz pur e alcohol) occasional PHQ-2 Answer Date Recorded Patient Health Questionnaire-2 Score 1 04/06/2024 Comments No Sex and Gender Information Value Date Recorded Sex Assigned at Female 03/06/2022 10:50 AM ELECTRIC TRUCK CRANE OPERATOR Legal Sex Female 11:21 AM ELECTRIC TRUCK CRANE OPERATOR Gender Identity Female 03/06/2022 10:50 AM ELECTRIC TRUCK CRANE OPERATOR Sexual Orientation Straight 03/06/2022 10 :50 AM ELECTRIC TRUCK CRANE OPERATOR 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 encounter Plan of Treatment Upcoming Encounters Date Type Department Care Team (Latest Contact Info) Description 02/24/2025 11:40 AM ELECTRIC TRUCK CRANE OPERATOR Office Visit [facility] Family Medicine - [place] [address] [place] [address] Lise Posada MD [address] [place] [address] 03/01/2025 4:01 PM ELECTRIC TRUCK CRANE OPERATOR Hospital Encounter [facility] [place] [address] Shelby Croft MD [address] [place] [address] [place] [address] 03/01/2025 4:01 PM ELECTRIC TRUCK CRANE OPERATOR - 03/01/2025 5:17 PM ELECTRIC TRUCK CRANE OPERATOR Surgery [place] [address] Shelby Croft MD [address] [place] [address] [place] [address] TRANSANAL HEMORRHOIDAL DEARTERIALIZATION 05/06/2025 11:00 AM ELECTRIC TRUCK CRANE OPERATOR Office Visit [facility] Multispecialty Care - [facility] 3 [facility], [address] [place] [phone] Yulia Tim, TORSTEN 3 [facility] [address] [place] [address] Scheduled Procedures Name Priority Associated Diagnoses Date/Ti me HEMORRHOIDECTOMY THD HEMORRHOIDS K64.4 03/01/2025 4:01 PM ELECTRIC TRUCK CRANE OPERATOR documented as of this encounter Visit Diagnoses Not on filedocumented in this encounter Additional Health Concerns Infection Onset Date Last Indicated Resolved Time COVID-19 Rule Out 01/21/2025 01/21/2025 01/21/2025 11:40 AM CDT Assessment Noted Time PHQ-9 Depression Total Score: 5 09/19/19 24 10:57 AM CDT documented as of this encounter Care Teams Newspaper Columnist Relationship Specialty Start Date End Date Lise Posada MD PCP - General FAMILY PRACTICE 12/31/17 documented as of this encounter
--- OUTSIDE RECORDS SUMMARY | 2025-02-18 17:01 | XMS_ITS | Encounter Summary ---
Author Organization [facility] Address [address] [place] [address] Care Team Providers Care Commercial Loan Reviewer Name Role Phone Lise Posada MD Primary Care Provider [phone] Encounter Details Date Type Department Care Team (Late st Contact Info) Description 08/17/2024 MyCSkinkerst Message Enc [facility] Medical Group Family Medicine [facility] [address] [place] [address] [place] [address] [place] [address] My left Kidney, and my upper [...] Sex Assigned at Female 03/06/2022 10:50 AM METAL SLITTER Legal Sex Female 11:21 AM METAL SLITTER Gender Identity Female 03/06/2022 10:50 AM METAL SLITTER Sexual Orientation Straight 03/06/2022 10 :50 AM METAL SLITTER 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 encounter Functional Status * Calculated C-SSRS Risk Score (Lifetime/Recent) Answer Date of Assessment Author Status No Risk Indicated 08/19/2024 12:54 PM CDT Reta Johnson, RN Active * Haakon Suicide Severity Rating Scale (Screener/Recent Self-Report) Question [...] (Latest Contact Info) Description 02/24/2025 11:40 AM METAL SLITTER Office Visit [facility] Medical Group Family Medicine - [address] [phone] Lise Posada MD [facility]6 [place] [address] 03/01/2025 4:01 PM METAL SLITTER Hospital Encounter [facility] [place] [address] Shelby Croft MD [address] [facility] [address] [place] [address] 03/01/2025 4:01 PM METAL SLITTER - 03/01/2025 5:17 PM METAL SLITTER Surgery [facility] [address] [facility] [address] Shelby Croft MD [address] [place] [address] [address] [place] [address] TRANSANAL HEMORRHOIDAL DEARTERIALIZATION 05/06/2025 11:00 AM METAL SLITTER Office Visit [facility] Medical Group Multispecialty Care - [facility] [address] [place] [address] Yulia Tim APRN 3 [facility] [address] [place] [address] Scheduled Procedures Name Priority Associated Diagnoses Date/Ti me HEMORRHOIDECTOMY THD HEMORRHOIDS K64.4 03/01/2025 4:01 PM METAL SLITTER documented as of this encounter Visit Diagnoses Not on filedocumented in this encounter Additional Health Concerns Infection Onset Date Last Indicated Resolved Time COVID-19 Rule Out 01/21/2025 01/21/2025 01/21/2025 11:40 AM CDT Assessment Noted Time PHQ-9 Depression Total Score: 6 07/16/19 25 1:24 PM CDT documented as of this encounter Care Teams Commercial Loan Reviewer Relationship Specialty Start Date End Date Lise Posada MD PCP - General FAMILY PRACTICE 12/31/17 documented as of this encounter
--- OUTSIDE RECORDS SUMMARY | 2025-02-18 17:01 | XMS_ITS | Encounter Summary ---
Author Organization [facility] Address [facility] [place] [address] Care Team Providers Care Field Artillery Cannoneer Name Role Phone Lise Posada MD Primary Care Provider [phone] Encounter Details Date Type Department Care Team (Late st Contact Info) Description 09/30/2021 [employer] Formerly Named [facility] Patient Accounts [address] [place] [address] [facility] Provider Monthly Payment Plan Social History [...] Sex Assigned at Female 03/06/2022 10:50 AM LINING STAMPER Legal Sex Female 11:21 AM LINING STAMPER Gender Identity Female 03/06/2022 10:50 AM LINING STAMPER Sexual Orientation Straight 03/06/2022 10 :50 AM LINING STAMPER COVID-19 Exposure Response Date Recorded In the last 10 days, have yo u been in contact with someone who was confirmed or suspected to have Coronavirus/COVID-19? No / Unsure 09/25/2021 3:42 PM CDT documented as of this encounter Plan of Treatment Upcoming Encounters Date Type Department Care Team (Latest Contact Info) Description 02/24/2025 11:40 AM LINING STAMPER Office Visit [facility] Family Medicine - [place] [address] [place] [address] Lise Posada MD [address] [place] [address] 03/01/2025 4:01 PM LINING STAMPER Hospital Encounter [facility] [place] [address] Shelby Croft MD [address] [place] [address] [place] [address] 03/01/2025 4:01 PM LINING STAMPER - 03/01/2025 5:17 PM LINING STAMPER Surgery [facility] [place] [address] Shelby Croft MD [address] [place] [address] [place] [address] TRANSANAL HEMORRHOIDAL DEARTERIALIZATION 05/06/2025 11:00 AM LINING STAMPER Office Visit [facility] Multispecialty Care - [facility] 3 [facility], [address] [place] [address] Yulia Tim, TORSTEN 3 [facility] [address] [place] [address] Scheduled Procedures Name Priority Associated Diagnoses Date/Ti me HEMORRHOIDECTOMY THD HEMORRHOIDS K64.4 03/01/2025 4:01 PM LINING STAMPER documented as of this encounter Visit Diagnoses Not on filedocumented in this encounter Additional Health Concerns Infection Onset Date Last Indicated Resolved Time COVID-19 Rule Out 01/21/2025 01/21/2025 01/21/2025 11:40 AM CDT Assessment Noted Time PHQ-9 Depression Total Score: 0 03/16/20 21 1:54 PM LINING STAMPER documented as of this encounter Care Teams Field Artillery Cannoneer Relationship Specialty Start Date End Date Lise Posada MD PCP - General FAMILY PRACTICE 12/31/17 documented as of this encounter
--- OUTSIDE RECORDS SUMMARY | 2025-02-18 17:01 | XMS_ITS | Encounter Summary ---
Author Organization [facility] Address [address] [place] [address] Care Team Providers Care Carpet Loom Fixer Name Role Phone Lise Posada MD Primary Care Provider [phone] Encounter Details Date Type Department Care Team (Late st Contact Info) Description 05/07/2023 [employer]urban [employer] Message Enc [facility] Medical Group Family Medicine [facility] [address] [place] [phone] [place] [address] [place] [address] Test results Social History Tobacco Use Types Packs/Day Years Used Date Smoking Tobacco: Never Smokeless Tobacco: Never Alcohol Use Standard Drinks/Week Comments Yes 0 (1 standard drink = 0.6 oz pur e alcohol) occasional PHQ-2 Answer Date Recorded Patient Health Questionnaire-2 Score 1 05/08/2023 Comments No Sex and Gender Information Value Date Recorded Sex Assigned at Female 03/06/2022 10:50 AM RESIDENTIAL INSTRUCTOR Legal Sex Female 11:21 AM RESIDENTIAL INSTRUCTOR Gender Identity Female 03/06/2022 10:50 AM RESIDENTIAL INSTRUCTOR Sexual Orientation Straight 03/06/2022 10 :50 AM RESIDENTIAL INSTRUCTOR Occupation Industry Job Start Date Job End [...] other people? Somewhat difficult 05/08/2023 2:07 PM RESIDENTIAL INSTRUCTOR Bambi Yost MA Active documented as of this encounter Plan of Treatment Upcoming Encounters Date Type Department Care Team (Latest Contact Info) Description 02/24/2025 11:40 AM RESIDENTIAL INSTRUCTOR Office Visit [facility] Family Medicine - [place] [address] [place] [phone] Lise Posada MD [address] [place] [address] 03/01/2025 4:01 PM RESIDENTIAL INSTRUCTOR Hospital Encounter [facility] [place] [address] Shelby Croft MD [address] [place] [address] [place] [address] 03/01/2025 4:01 PM RESIDENTIAL INSTRUCTOR - 03/01/2025 5:17 PM RESIDENTIAL INSTRUCTOR Surgery [facility] [place] [address] Shelby Croft MD [address] [place] [address] [place] [address] TRANSANAL HEMORRHOIDAL DEARTERIALIZATION 05/06/2025 11:00 AM RESIDENTIAL INSTRUCTOR Office Visit [facility] Multispecialty Care - [facility] 3 [facility], [address] [place] [phone] Yulia Tim APRN 3 [facility] [address] [place] [address] Scheduled Procedures Name Priority Associated Diagnoses Date/Ti me HEMORRHOIDECTOMY THD HEMORRHOIDS K64.4 03/01/2025 4:01 PM RESIDENTIAL INSTRUCTOR documented as of this encounter Visit Diagnoses Not on filedocumented in this encounter Additional Health Concerns Infection Onset Date Last Indicated Resolved Time COVID-19 Rule Out 01/21/2025 01/21/2025 01/21/2025 11:40 AM CDT Assessment Noted Time PHQ-9 Depression Total Score: 0 03/16/20 21 1:54 PM RESIDENTIAL INSTRUCTOR documented as of this encounter Care Teams Carpet Loom Fixer Relationship Specialty Start Date End Date Lise Posada MD PCP - General FAMILY PRACTICE 12/31/17 documented as of this encounter
--- OUTSIDE RECORDS SUMMARY | 2025-02-18 17:01 | XMS_ITS | Clinical Summary ---
Author Organization [facility] Address Formerly [facility], [facility] [place] [address] Care Team Providers Care Risk Control Consultant Name Role Phone Lise Posada MD Primary Care Provider [phone] Allergies No known active allergies Medications linaCLOtide (LINZESS) 72 MCG capsuleIndicati ons:Irritable bowel syndrome with constipation Take 1 capsule (72 mcg total) by mouth daily. 90 capsule 3 04/07/20 24 025 Active lidocaine (LIDO EVIE) 4 % patch Place 1 patch onto the skin daily. Remove & Discard patch within 12 hours or as directed by 30 patch 08/20/19 25 Active estradiol (ESTRACE) 0.1 MG/GM vaginal cream INSERT 1 GRAM VAGINALLY 2 TIMES A WEEK 12/11/19 25 Active valsartan (DIOVAN) 40 MG tabletIndicatio ns:Primary [...] breakfast. 90 tablet 1 01/23/20 25 Active valACYclovir (VALTREX) 500 MG tabletIndicatio ns:HSV-2 infection TAKE 1 TABLET(500 MG) BY MOUTH DAILY 30 tablet 2 02/14/20 25 Active benzonatate (TESSALON) 100 MG capsuleIndicati ons:Acute cough TAKE 1 CAPSULE(100 MG) BY MOUTH THREE TIMES DAILY NEEDED FOR COUGH 20 capsule 02/14/20 25 Active valACYclovir (VALTREX) 500 MG tabletIndicatio ns:HSV-2 infection Take 1 tablet (500 mg total) by mouth daily. 30 tablet 2 06/11/19 025 Discontinued potassium chloride CR (KLOR-CON M) 20 MEQ tabletIndicatio ns:Hypokalemia Take 1 tablet (20 mEq total) by mouth daily. 90 tablet 1 11/10/19 25 025 Discontinued ferrous sulfate EC 325 (65 Fe) MG tabletIndicatio ns:Iron deficiency anemia secondary to inadequate dietary iron intake Take 1 tablet (325 mg total) by mouth daily with breakfast. 90 tablet 1 11/10/19 25 025 Discontinued valACYclovir (VALTREX) 1 g tablet Take 1 tablet (1,000 mg total) by mouth daily. 12/11/19 025 Discontinued(Du plicate Med) benzonatate (TESSALON PERLES) 100 MG capsuleIndicati ons:Acute cough Take 1 capsule (100 mg total) by mouth 3 (three) times daily as needed for Cough. 20 capsule 12/31/19 25 025 Discontinued penicillin VK 500 MG tablet Take 1 tablet (500 mg total) by mouth 2 (two) times daily for 10 days. 20 tablet 01/22/20 25 025 lidocaine viscous (XYLOCAINE) 2 % solution Take 10 mLs by mouth every 4 (four) hours as needed for Pain. Gargle and spit 100 mL 01/22/20 25 025 amLODIPine (NORVASC) 5 MG tablet Take 1 tablet (5 mg total) by mouth daily. 025 Discontinued Active Problems Problem Noted Date Diagnosed [...] Encounters Date Type Department Care Team Description 02/03/2025 12:57 PM CDT - 02/03/2025 11:59 PM CDT Hospital Encounter [facility] [place] [address] Lise Posada MD Discharge Disposition: Home or Self Care (Routine Discharge) 02/03/2025 Travel 01/30/2025 2:21 PM CDT - 01/30/2025 11:59 PM CDT Hospital Encounter [facility] [place] [address] Lise Posada MD Discharge Disposition: Home or Self Care (Routine Discharge) 01/30/2025 Travel 01/22/2025 10:20 AM CDT Office Visit [address] [address] Lise Posada MD Hypertension 01/22/2025 Results Follow-Up [address] [address] Lise Posada MD IRON SAT PANEL (IRON,IBC,%SAT), CBC W/DIFF AUTOMATED, COMPREHENSIVE METABOLIC PANEL, PRO-BRAIN NATRIURETIC PEPTIDE 01/22/2025 Travel 01/21/2025 11:08 AM CDT - 01/21/2025 12:19 PM CDT Emergency [facility] [place] [address] Armando Bagley APRN Cough; Sore Throat Discharge Disposition: Home or Self Care (Routine Discharge) 01/21/2025 Scan HEALTH INFO SRVCS Scanned, [facility] 01/21/2025 Travel 01/16/2025 11:22 AM CDT - 01/16/2025 11:59 PM CDT Hospital Encounter [place] [address] Lise Posada MD Discharge Disposition: Home or Self Care (Routine Discharge) 01/16/2025 Travel 01/14/2025 8:40 AM CDT Office Visit [address] [address] Lise Posada MD Edema (Both ankles and lower legs were swollen, the swelling lasted for 1 week and just went down yesterday) 01/14/2025 Travel 01/12/2025 Scan HEALTH INFO SRVCS Scanned, [facility] 01/11/2025 MyChart Message Enc [address] [address] Lise Posada MD Swollen legs and ankles 01/11/2025 Travel 12/30/2024 11:20 AM CDT Telemedicine [address] [address] Lise Posada MD COVID-19 (Symptoms started a couple of weeks ago with cough and [place], itchy throat, a couple of days ago, worse; went to on Saturday12/28/2024, positive for COVID) 12/30/2024 Travel 12/10/2024 9:40 AM CDT Office Visit [address] [address] Lise Posada MD Hypertension; Neck Pain (Going to PT - completed 12 sessions and to follow with PCP, patient reports has improved some but still experiencing pain; intermittent, local, no pain currently) 12/09/2024 5:10 PM CDT - 12/09/2024 11:59 PM CDT Hospital Encounter [facility] [place] [address] Lise Posada MD Delong, Brieanna L, PT Back Pain; Leg Pain Discharge Disposition: Home or Self Care (Routine Discharge) 12/09/2024 Travel 12/04/2024 2:15 PM CDT - 12/04/2024 11:59 PM CDT Hospital Encounter [facility] [place] [address] Lise Posada MD Dietz, Courtnie K, [employer] Discharge Disposition: Home or Self Care (Routine Discharge) 12/04/2024 Travel 12/02/2024 2:11 PM CDT - 12/02/2024 11:59 PM CDT Hospital Encounter [facility] [address] Lise Posada MD Lewis, Molly A, [employer] Discharge Disposition: Home or Self Care (Routine Discharge) 12/02/2024 Travel 11/27/2024 3:45 PM CDT - 11/27/2024 11:59 PM CDT Hospital Encounter [facility] [address] Lise Posada MD Kohnen, Haley M, [employer] Discharge Disposition: Home or Self Care (Routine Discharge) 11/27/2024 Travel 11/23/2024 4:15 PM CDT - 11/23/2024 11:59 PM CDT Hospital Encounter [facility] [address] Karma Beckman, DPT Discharge Disposition: Home or Self Care (Routine Discharge) 11/23/2024 Travel 11/23/2024 Telephone [facility] [address] Tere Landa, PT Called To Cancel Office Appt. 11/20/2024 Telephone [facility] [address] Rachelle Perez, [employer] No Show 11/20/2024 Travel 11/18/2024 2:10 PM CDT - 11/18/2024 11:59 PM CDT Hospital Encounter [facility] [place] [address] EllebyLise MD Delong, Brieanna L, PT Discharge Disposition: Home or Self Care (Routine Discharge) 11/18/2024 Travel from Last 3 Months Immunizations Immunization [...] Sex Assigned at Female 03/06/2022 10:50 AM SMT OPERATOR Legal Sex Female 11:21 AM SMT OPERATOR Gender Identity Female 03/06/2022 10:50 AM SMT OPERATOR Sexual Orientation Straight 03/06/2022 10 :50 AM SMT OPERATOR Occupation Industry Job Start Date Job [...] (Latest Contact Info) Description 02/24/2025 11:40 AM SMT OPERATOR Office Visit [facility] Family Medicine - [place] [address] [place] [address] Lise Posada MD [address] [place] [address] 03/01/2025 4:01 PM SMT OPERATOR Hospital Encounter [facility] [place] [address] Shelby Croft MD [address] [place] [address] [place] [address] 03/01/2025 4:01 PM SMT OPERATOR - 03/01/2025 5:17 PM SMT OPERATOR Surgery [facility] [place] [address] Shelby Croft MD [address] [place] [address] [place] [address] TRANSANAL HEMORRHOIDAL DEARTERIALIZATION 05/06/2025 11:00 AM SMT OPERATOR Office Visit [facility] Multispecialty Care - [facility] 3 [facility], [address] [facility] [place] [address] Yulia Tim APRN 3 [facility] [address] [place] [address] Scheduled Procedures Name Priority Associated Diagnoses Date/Ti me HEMORRHOIDECTOMY THD HEMORRHOIDS K64.4 03/01/2025 4:01 PM SMT OPERATOR Health Maintenance Due Date Last Done Comments [...] 03/30/2021, Additional history exists Hepatitis C Completed 11/27/2023, 06/14, 06/27/2016, Additional history exists PHQ-2 (Physician [place]) Completed 01/22/2025 Meningococcal B Vaccine Aged Out [...] on patient's age to complete this topic Procedures Procedure Name Priority Date/Time Associated Diagnosis Comments LIPID PANEL Routine 02/03/2025 1:06 PM CDT Health care maintenance COMPREHENSIVE METABOLIC PANEL Routine 02/03/2025 1:06 PM CDT Primary hypertension Hypokalemia Health care maintenance IRON SAT PANEL (IRON,IBC,%SAT) Routine 02/03/2025 1:06 PM CDT Iron deficiency anemia secondary to inadequate dietary iron intake CBC W/DIFF AUTOMATED Routine 02/03/2025 1:06 PM CDT Iron deficiency anemia secondary to inadequate dietary iron intake MRI CERV SPINE WO CON Routine 01/30/2025 2:56 PM CDT Neck pain DDD (degenerative disc disease), cervical CORONAVIRUS (COVID 19) STAT 11:19 AM CDT [...] Relevant to Health Maintenance Results * (ABNORMAL) IRON SAT PANEL (IRON,IBC,%SAT) (02/03/2025 1:06 PM CDT) Only the most recent of2 resultswithin the time period is included. IRON 44(L) 50.0 - 170.0 MCG/DL 02/03/2025 1:45 PM CDT [facility] IRON BINDING CAPACITY 344 250 - 450 MCG/DL 02/03/2025 1:[address] [facility] IRON SATURATION 13(L) 20 - 55 % 1:[address] [facility] 02/03/2025 1:06 PM CDT Lise Posada MD LABORATORY Final Result [facility] [address] [place] [address], [place] [phone] * (ABNORMAL) COMPREHENSIVE METABOLIC PANEL (02/03/2025 1:06 PM CDT) Only the most recent of2 resultswithin the time period is included. GLUCOSE 99 70 - 99 MG/DL 02/03/2025 1:[address] [facility] BUN 7 7 - 18 MG/DL 02/03/2025 1:[address] [facility] CREATININE S/P/B 0.58 0.55 - 1.02 MG/DL 02/03/2025 1:[address] [facility] SODIUM S/P/B 142 136 - 145 MMOL/L 02/03/2025 1:[address] [facility] POTASSIUM S/P/B 4.0 3.5 - 5.1 MMOL/L 02/03/2025 1:[address] [facility] CHLORIDE S/P/B 111 97 - 115 MMOL/L 02/03/2025 1:[address] [facility] CO2 29.0 21 - 32 MMOL/L 02/03/2025 1:[address] [facility] CALCIUM S/P/B 9.6 8.5 - 10.1 MG/DL 02/03/2025 1:[address] [facility] BILIRUBIN TOTAL S/P/B 0.3 0.2 - 1.2 MG/DL 02/03/2025 1:45 PM [facility] Comment: THIS ASSAY IS NOT RECOMMENDED FOR PATIENTS UNDERGOING TREATMENT WITH ELTROMBOPAG DUE TO THE POTENTIAL FOR FALSELY ELEVATED RESULTS. TOTAL PROTEIN S/P/B 7.4 6.4 - 8.2 G/DL 02/03/2025 1:[address] [facility] ALBUMIN S/P/B 3.8 3.4 - 5.0 G/DL 02/03/2025 1:45 PM [facility] AST 12(L) 15 - 37 U/L 02/03/2025 1:45 PM [facility] ALT 28 14 - 55 U/L 02/03/2025 1:45 PM [facility] ALKALINE PHOSPHATASE S/P/B 72 50 - 136 U/L 02/03/2025 1:45 PM [facility] ANION GAP 2.0 2 - 10 MMOL/L 02/03/2025 1:45 PM [facility] BUN CREATININE RATIO 12.1 6 - 26 02/03/2025 1:45 PM [facility] A/G RATIO 1.1 1.0 - 2.0 RATIO 02/03/2025 1:45 PM [facility] GFR ESTIMATE >90 >90 ML/MIN/1.7 3 M2 02/03/2025 1:45 PM [facility] Comment: NOTE: eGFR is not calculated for patients <18 years of age or gender unknown. This is an estimated GFR calculation using the new CKD EPI creatinine equation without race and so does not require a correction factor for race. This estimated GFR should not be used for calculating drug doses. 02/03/2025 1:06 PM CDT Lise Posada MD LABORATORY Final Result [facility] [address] [place] [address], * (ABNORMAL) LIPID PANEL (02/03/2025 1:06 PM CDT) CHOLESTEROL 209(H) <200 MG/DL 02/03/2025 1:[address] [facility] TRIGLYCERIDES 138 <150 MG/DL 02/03/2025 1:[address] [facility] HDL 58 >40.0 MG/DL 02/03/2025 1:[address] [facility] LDL (CALCULATED) 123(H) <100 MG/DL 02/03/2025 1:[address] [facility] Comment:CALCULATED USING THE FRIEDEWALD EQUATION NON HDL CHOLESTEROL 151(H) <130 MG/DL 02/03/2025 1:[address] [facility] CHOL/HDL RATIO 3.6 0.0 - 4.5 02/03/2025 1:[address] [facility] VLDL CALCULATION 28 5 - 55 MG/DL 02/03/2025 1:[address] [facility] LIPID INTERPRETATION 02/03/2025 1:[address] [facility] Comment: NIH CONCENSUS REPORT RECOMMENDATIONS: ADULT CHILD LOW RISK: CHOLESTEROL <200 <170 TRIGLYCERIDE <150 --- HDL >=60 --- LDL <100 <110 BORDERLINE: CHOLESTEROL 200-239 170-199 TRIGLYCERIDE 150-199 --- HDL 40-59 --- LDL 100-159 110-129 HIGH RISK: CHOLESTEROL >=240 >=200 TRIGLYCERIDE >=200 --- HDL <40 --- LDL >=160 >=130 02/03/2025 1:06 PM CDT Lise Posada MD LABORATORY Final Result [facility] [address] [place] [address], [place] [phone] * (ABNORMAL) CBC W/DIFF AUTOMATED (02/03/2025 1:06 PM CDT) Only the most recent of2 resultswithin the time period is included. [facility] WBC 5.83 4.5 - 11.0 x10'3/uL 02/03/2025 1:[address] [facility] RBC 4.71 4.20 - 5.40 x10'6/uL 02/03/2025 1:[address] [facility] HGB 12.3 12.0 - 16.0 G/DL 02/03/2025 1:[address] [facility] HCT 39.0 38.0 - 48.0 % 02/03/2025 1:[address] [facility] MCV 82.8 81.0 - 99.0 FL 02/03/2025 1:[address] [facility] MCH 26.1(L) 27.0 - 31.0 PG 02/03/2025 1:[address] [facility] MCHC 31.5(L) 32.0 - 36.0 G/DL 02/03/2025 1:[address] [facility] RDW 16.2(H) 11.5 - 14.5 % 02/03/2025 1:[address] [facility] PLT 233 130 - 400 x10'3/uL 02/03/2025 1:[address] [facility] MPV 11.0 9.3 - 12.2 FL 02/03/2025 1:[address] [facility] DIFFERENTIAL TYPE AUTOMATED DIFFERENTIAL 02/03/2025 1:[address] [facility] NEUTROPHILS % 44.3 % 02/03/2025 1:[address] [facility] LYMPHOCYTES % 46.1 % 02/03/2025 1:[address] [facility] MONOCYTES % 7.0 % 02/03/2025 1:[address] [facility] EOSINOPHILS 1.4 % 02/03/2025 1:[address] [facility] BASOPHILS 1.0 % 02/03/2025 1:[address] [facility] IMMATURE GRANS % 0.2 % 02/04/20 1:[address] [facility] ABS. NEUTROPHILS 2.58 1.80 - 7.70 x10'3/uL 02/03/2025 1:[address] [facility] ABS. LYMPHOCYTES 2.69 1.00 - 4.80 x10'3/uL 02/03/2025 1:[address] [facility] ABS. MONOCYTES 0.41 0.24 - 0.86 x10'3/uL 02/03/2025 1:[address] [facility] ABS. EOSINOPHILS 0.08 0.04 - 0.36 x10'3/uL 02/03/2025 1:[address] [facility] ABS. BASOPHILS 0.06 0.01 - 0.08 x10'3/uL 02/03/2025 1:[address] [facility] ABS. IMMATURE GRANULOCYTES 0.01 0.00 - 0.49 x10'3/uL 02/03/2025 1:[address] [facility] 02/03/2025 1:06 PM CDT Lise Posada MD LABORATORY Final Result [facility] [address] [place] [address], [place] [phone] * MRI CERV SPINE WO CON (01/30/2025 2:56 PM CDT) Anatomical Region Laterality Modality Spine Magnetic Resonan ce 02/09/2025 10:1 7 AM CDT Impressions 02/09/2025 10:21 AM CDT IMPRESSION: 1. Moderate neural foraminal stenosis on the left at C5/C6, unchanged. 2. Mild central canal stenosis at C5/C6 and C6-C7, unchanged. No cervical cord signal abnormality. 3. Straightening of the normal cervical lordosis may be positional or due to muscle spasm. No acute osseous abnormality. Referred By: LISE POSADA Interpreted By: Armando Rivera MD, 02/09/2025 10:17 AM Narrative 02/09/2025 10:21 AM CDT [facility] [address] [place], [place] [address] EXAMINATION: MRI of the cervical spine without contrast 01/30/2025 INDICATION: Degenerative disc disease, chronic neck pain TECHNIQUE: Multiplanar multisequence MR imaging of the cervical spine was performed without intravenous contrast. COMPARISON: MRI cervical spine 12/01/2022 FINDINGS:There is straightening of the normal cervical lordosis with preservation of vertebral body heights and disc spaces. Bone marrow signal is within normal limits with no acute fracture or dislocation. No ligamentous discontinuity or signal abnormality The partially visualized intracranial contents are unremarkable. The cervical spinal cord is unremarkable in course caliber contour and signal. No prevertebral edema. No paraspinal mass or fluid collection No stenosis at the foramen magnum or C1/C2 level C2/C3: Negative C3/C4: Negative C4/C5: Negative C5/C6: Disc space narrowing with small posterior disc/osteophyte complex and uncovertebral arthropathy causing mild central canal stenosis and moderate left neural foraminal stenosis. The thecal sac measures 7 mm. C6/C7: Small posterior disc/osteophyte complex and uncovertebral arthropathy causing mild central canal stenosis. The thecal sac measures 8 mm C7/T1: Negative Evaluation is mildly limited due to motion and artifact. Procedure Note Armando Rivera MD - 02/09/2025 [facility] [address] [place], [place] [address] EXAMINATION: MRI of the cervical spine without contrast 01/30/2025 INDICATION: Degenerative disc disease, chronic neck pain TECHNIQUE: Multiplanar multisequence MR imaging of the cervical spine wasperformed without intravenous contrast. COMPARISON: MRI cervical spine 12/01/2022 FINDINGS:There is straightening of the normal cervical lordosis withpreservation of vertebral body heights and disc spaces. Bone marrowsignal is within normal limits with no acute fracture or dislocation. Noligamentous discontinuity or signal abnormality The partially visualized intracranial contents are unremarkable. Thecervical spinal cord is unremarkable in course caliber contour and signal.No prevertebral edema. No paraspinal mass or fluid collection No stenosis at the foramen magnum or C1/C2 level C2/C3: Negative C3/C4: Negative C4/C5: Negative C5/C6: Disc space narrowing with small posterior disc/osteophyte complexand uncovertebral arthropathy causing mild central canal stenosis andmoderate left neural foraminal stenosis. The thecal sac measures 7 mm. C6/C7: Small posterior disc/osteophyte complex and uncovertebralarthropathy causing mild central canal stenosis. The thecal sac measures8 mm C7/T1: Negative Evaluation is mildly limited due to motion and artifact. IMPRESSION: 1. Moderate neural foraminal stenosis on the left at C5/C6, unchanged. 2. Mild central canal stenosis at C5/C6 and C6-C7, unchanged. Nocervical cord signal abnormality. 3. Straightening of the normal cervical lordosis may be positional or dueto muscle spasm. No acute osseous abnormality. Referred By: LISE POSADA Interpreted By: Armando Rivera MD, 02/09/2025 10:17 AM Lise Posada MD MRI Final Result * CORONAVIRUS (COVID 19) (01/21/2025 11:19 AM CDT) CORONAVIRUS SARS COV 2 RNA NEGATIVE NEGATIVE 01/21/2025 11:[address] [facility] Comment: NEGATIVE RESULTS DO NOT RULE [...] SPECIMEN TYPE NASAL 01/21/2025 11:[address] [facility] NASAL STRUCTURE / Unknown 01/21/2025 11:19 AM CDT Armando Bagley APRN MICROBIOLOGY - GENERAL ORDER MARAL Final Result [facility] [address] [place] [address], [place] [phone] * (ABNORMAL) STREP A RAPID (01/21/2025 11:19 AM CDT) SPECIMEN TYPE THROAT 01/21/2025 11:[address] [facility] RAPID STREP TEST POSITIVE(A) NEGATIVE 01/21/2025 11:[address] [facility] STRUCTURE OF ANTERIOR REGION OF NECK / Unknown 01/21/2025 11:19 AM CDT Armando Bagley APRN MICROBIOLOGY - GENERAL ORDER MARAL Final Result Performing Organization Address City/[facility] Co de Phone Number [facility] [address] [place] [address], [place] [phone] * PRO-BRAIN NATRIURETIC PEPTIDE (01/16/2025 11:25 AM CDT) PRO-B TYPE NATRIURETIC PEPTIDE 50 <125 PG/ML 01/16/2025 12:[address] [facility] Comment: CUT POINTS ESTABLISHED BY INTERNATIONAL [...] CDT Lise Posada MD LABORATORY Final Result Performing Organization Address [facility] Co de Phone Number [facility] [address] [place] [address], [place] [phone] * MG SCREENING W NARCISO ANDI DIGI [...] 4:54 PM Narrative 07/31/2024 4:57 PM CDT [facility] [place] [address] EXAMINATION: MG SCREENING W NARCISO ANDI DIGI [...] asymmetry or architectural distortion. No axillary adenopathy. us Lise Posada MD MAMMO Final Result * HEPATITIS PANEL,ACUTE (11/27/2023 12:02 PM CDT) HEPATITIS B SURFACE AG NON-REACTI VE NON-REACTI VE 11/27/2023 6:[address] [facility] HEP B CORE IGM NON-REACTI VE NON-REACTI VE 11/27/2023 2:[address] [facility] HAV IGM NON-REACTI VE NON-REACTI VE 11/27/2023 2:[address] [facility] HEPATITIS C AB NON-REACTI VE NON-REACTI VE 11/27/2023 2:[address] [facility] 11/27/2023 12:0 2 PM CDT us Lise Posada MD LABORATORY Final Result [facility] [address] [place] [address], [place] [phone] * COLONOSCOPY/EGD GENERIC (07/12/2021) 07/12/2021 Narrative 07/12/2021 Ordered by an unspecified provider. us Documents Scanned SCANNING Final Result from Last 3 Months or Most Recently Relevant to Health Maintenance Insurance [place] [employer] Care Teams Risk Control Consultant Relationship Specialty Start Date End Date Lise Posada MD PCP - General FAMILY PRACTICE 12/31/17
--- OUTSIDE RECORDS SUMMARY | 2025-02-18 17:01 | XMS_ITS | Encounter Summary ---
Author Organization [facility] Address [facility] [place] [address] Care Team Providers Care Metalworker Name Role Phone Lise Posada MD Primary Care Provider Encounter Details Date Type Department Care Team (Late st Contact Info) Description 12/27/2021 MyChart Message Enc [facility] Family Medicine [facility] [address] [place] [address] [place] [address] [place] [address] Gastric surgery Social History Tobacco Use [...] Sex Assigned at Female 03/06/2022 10:50 AM SHEAR ASSEMBLER Legal Sex Female 11:21 AM SHEAR ASSEMBLER Gender Identity Female 03/06/2022 10:50 AM SHEAR ASSEMBLER Sexual Orientation Straight 03/06/2022 10 :50 AM SHEAR ASSEMBLER Occupation Industry Job Start Date Job [...] (Latest Contact Info) Description 02/24/2025 11:40 AM SHEAR ASSEMBLER Office Visit [facility] Family Medicine - [place] [address] [place] [phone] Lise Posada MD [address] [place] [address] 03/01/2025 4:01 PM SHEAR ASSEMBLER Hospital Encounter [facility] [place] [address] Shelby Croft MD [facility] [address] [place] [address] 03/01/2025 4:01 PM SHEAR ASSEMBLER - 03/01/2025 5:17 PM SHEAR ASSEMBLER Surgery [facility] [place] [address] Shelby Croft MD [facility] [address] [place] [address] TRANSANAL HEMORRHOIDAL DEARTERIALIZATION 05/06/2025 11:00 AM SHEAR ASSEMBLER Office Visit [facility] Multispecialty Care - [facility] 3 [facility], [address] [place] [phone] Yulia Tim APRN 3 [facility] [address] [place] [address] Scheduled Procedures Name Priority Associated Diagnoses Date/Ti me HEMORRHOIDECTOMY THD HEMORRHOIDS K64.4 03/01/2025 4:01 PM SHEAR ASSEMBLER documented as of this encounter Visit Diagnoses Not on filedocumented in this encounter Additional Health Concerns Infection Onset Date Last Indicated Resolved Time COVID-19 Rule Out 01/21/2025 01/21/2025 01/21/2025 11:40 AM CDT Assessment Noted Time PHQ-9 Depression Total Score: 0 03/16/20 21 1:54 PM SHEAR ASSEMBLER documented as of this encounter Care Teams Metalworker Relationship Specialty Start Date End Date Lise Posada MD PCP - General FAMILY PRACTICE 12/31/17 documented as of this encounter
--- OUTSIDE RECORDS SUMMARY | 2025-02-18 17:01 | XMS_ITS | Encounter Summary ---
Author Organization [facility] Address [facility] [place] [address] Care Team Providers Care Annual Giving Officer Name Role Phone Lise Posada MD Primary Care Provider [phone] Encounter Details Date Type Department Care Team (Late st Contact Info) Description 11/01/2021 MyCClonelesst Message Enc [facility] Medical Group Family Medicine [facility] [address] [place] [address] Lise Posada MD [address] [place] [address] Question regarding US ABD LIMITED [...] Sex Assigned at Female 03/06/2022 10:50 AM SENIOR COGNOS DEVELOPER Legal Sex Female 11:21 AM SENIOR COGNOS DEVELOPER Gender Identity Female 03/06/2022 10:50 AM SENIOR COGNOS DEVELOPER Sexual Orientation Straight 03/06/2022 10 :50 AM SENIOR COGNOS DEVELOPER COVID-19 Exposure Response Date Recorded In the last 10 days, have yo u been in contact with someone who was confirmed or suspected to have Coronavirus/COVID-19? No / Unsure 11/01/2021 10:36 AM CDT documented as of this encounter Plan of Treatment Upcoming Encounters Date Type Department Care Team (Latest Contact Info) Description 02/24/2025 11:40 AM SENIOR COGNOS DEVELOPER Office Visit [facility] Family Medicine - [place] [address] [place] [phone] Lise Posada MD [address] [place] [address] 03/01/2025 4:01 PM SENIOR COGNOS DEVELOPER Hospital Encounter [facility] [place] [address] Shelby Croft MD [address] [place] [address] [place] [address] 03/01/2025 4:01 PM SENIOR COGNOS DEVELOPER - 03/01/2025 5:17 PM SENIOR COGNOS DEVELOPER Surgery [facility] [place] [address] Shelby Croft MD [address] [place] [address] [place] [address] TRANSANAL HEMORRHOIDAL DEARTERIALIZATION 05/06/2025 11:00 AM SENIOR COGNOS DEVELOPER Office Visit [facility] Multispecialty Care - [facility] 3 [facility], [address] [place] [phone] Yulia Tim APRN 3 [facility] [address] [place] [address] Scheduled Procedures Name Priority Associated Diagnoses Date/Ti me HEMORRHOIDECTOMY THD HEMORRHOIDS K64.4 03/01/2025 4:01 PM SENIOR COGNOS DEVELOPER documented as of this encounter Visit Diagnoses Not on filedocumented in this encounter Additional Health Concerns Infection Onset Date Last Indicated Resolved Time COVID-19 Rule Out 01/21/2025 01/21/2025 01/21/2025 11:40 AM CDT Assessment Noted Time PHQ-9 Depression Total Score: 0 03/16/20 21 1:54 PM SENIOR COGNOS DEVELOPER documented as of this encounter Care Teams Annual Giving Officer Relationship Specialty Start Date End Date Lise Posada MD PCP - General FAMILY PRACTICE 12/31/17 documented as of this encounter
--- OUTSIDE RECORDS SUMMARY | 2025-02-18 17:01 | XMS_ITS | Encounter Summary ---
Author Organization [facility] Address [address] [place] [address] Care Team Providers Care Risk Management Internship Name Role Phone Lise Posdaa MD Primary Care Provider [phone] Encounter Details Date Type Department Care Team (Late st Contact Info) Description 06/24/2024 MyChart Message Enc [facility] Medical Group Family Medicine [facility] [address] [place] [phone] [place] [address] [place] [address] muscles relaxer Social History Tobacco Use Types Packs/Day Years Used Date Smoking Tobacco: Never Smokeless Tobacco: Never Alcohol Use Standard Drinks/Week Comments Not Currently 0 (1 standard drink = 0.6 oz pur e alcohol) occasional PHQ-2 Answer Date Recorded Patient Health Questionnaire-2 Score 1 04/06/2024 Comments No Sex and Gender Information Value Date Recorded Sex Assigned at Female 03/06/2022 10:50 AM FIELD REPRESENTATIVE Legal Sex Female 11:21 AM FIELD REPRESENTATIVE Gender Identity Female 03/06/2022 10:50 AM FIELD REPRESENTATIVE Sexual Orientation Straight 03/06/2022 10 :50 AM FIELD REPRESENTATIVE 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 encounter Plan of Treatment Upcoming Encounters Date Type Department Care Team (Latest Contact Info) Description 02/24/2025 11:40 AM FIELD REPRESENTATIVE Office Visit [facility] Family Medicine - [place] [address] [place] [address] Lise Posada MD [address] [place] [address] 03/01/2025 4:01 PM FIELD REPRESENTATIVE Hospital Encounter [facility] [place] [address] Shelby Croft MD [address] [place] [address] [place] [address] 03/01/2025 4:01 PM FIELD REPRESENTATIVE - 03/01/2025 5:17 PM FIELD REPRESENTATIVE [place] [address] Shelby Croft MD [address] [place] [address] [place] [address] TRANSANAL HEMORRHOIDAL DEARTERIALIZATION 05/06/2025 11:00 AM FIELD REPRESENTATIVE Office Visit [facility] Multispecialty Care - [facility] 3 [facility], [address] [place] [phone] Yulia Tim APRN 3 [facility] [address] [place] [address] Scheduled Procedures Name Priority Associated Diagnoses Date/Ti me HEMORRHOIDECTOMY THD HEMORRHOIDS K64.4 03/01/2025 4:01 PM FIELD REPRESENTATIVE documented as of this encounter Visit Diagnoses Not on filedocumented in this encounter Additional Health Concerns Infection Onset Date Last Indicated Resolved Time COVID-19 Rule Out 01/21/2025 01/21/2025 01/21/2025 11:40 AM CDT Assessment Noted Time PHQ-9 Depression Total Score: 5 09/19/19 24 10:57 AM CDT documented as of this encounter Care Teams Risk Management Internship Relationship Specialty Start Date End Date Lise Posada MD PCP - General FAMILY PRACTICE 12/31/17 documented as of this encounter
--- OUTSIDE RECORDS SUMMARY | 2025-02-18 17:01 | XMS_ITS | Encounter Summary ---
Author Organization [facility] Address [address] [place] [address] Care Team Providers Care Arts And Sciences Dean Name Role Phone Lise Posada MD Primary Care Provider [phone] Encounter Details Date Type Department Care Team (Late st Contact Info) Description 02/20/2023 Prep for Procedure [facility] [place] [address] Conchis Johns MD [address] [place] [address] Social History Tobacco Use Types Packs/Day Years Used Date Smoking Tobacco: Never Smokeless Tobacco: Never Alcohol Use Standard Drinks/Week Comments Yes 0 (1 standard drink = 0.6 oz pur e alcohol) occasional PHQ-2 Answer Date Recorded Patient Health Questionnaire-2 Score 2 05/30/2022 Comments No Sex and Gender Information Value Date Recorded Sex Assigned at Female 03/06/2022 10:50 AM SEALING MACHINE OPERATOR Legal Sex Female 11:21 AM SEALING MACHINE OPERATOR Gender Identity Female 03/06/2022 10:50 AM SEALING MACHINE OPERATOR Sexual Orientation Straight 03/06/2022 10 :50 AM SEALING MACHINE OPERATOR 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 Wish to be (Past 1 Month) No 02/20/2023 8:10 AM SEALING MACHINE OPERATOR Norma Jarrett RN Act edil 2. Non-Specific Active Suicidal Thoughts (Past 1 Month) No 02/20/2023 8:10 AM Norma Mackenzie RN Act edil 6. Suicidal Behavior (Lifetime) No 02/20/2023 8:10 AM Norma Mackenzie RN Act edil documented as of this encounter Plan of Treatment Upcoming Encounters Date Type Department Care Team (Latest Contact Info) Description 02/24/2025 11:40 AM SEALING MACHINE OPERATOR Office Visit [facility] Medical Group Family Medicine [facility] [address] [place] [address] Lise Posada MD [address] [place] [address] 03/01/2025 4:01 PM SEALING MACHINE OPERATOR Hospital Encounter [facility] [place] [address] Shelby Croft MD [address] [place] [address] 03/01/2025 4:01 PM SEALING MACHINE OPERATOR - 03/01/2025 5:17 PM SEALING MACHINE OPERATOR Surgery [facility] [place] [address] Shelby Croft MD [address] [place] [address] [place] [phone] TRANSANAL HEMORRHOIDAL DEARTERIALIZATION 05/06/2025 11:00 AM SEALING MACHINE OPERATOR Office Visit [facility] Medical Group Multispecialty Care - [facility] 3 [facility], [address] [place] [address] Yulia Tim, DYE HOUSE WORKER 3 [facility] [address] [place] [address] Scheduled Procedures Name Priority Associated Diagnoses Date/Ti me HEMORRHOIDECTOMY THD HEMORRHOIDS K64.4 03/01/2025 4:01 PM SEALING MACHINE OPERATOR documented as of this encounter Results * TYPE & SCREEN (02/18/2023 3:48 PM SEALING MACHINE OPERATOR) Pathologist [facility] ABO/RH O POSITIVE 02/18/2023 4:41 PM SEALING MACHINE OPERATOR [facility] ANTIBODY SCREEN NEGATIVE 02/18/2023 4:41 PM SEALING MACHINE OPERATOR [facility] SAMPLE EXPIRATION 02/21/2023,2 359 02/18/2023 4:41 PM SEALING MACHINE OPERATOR [facility] 02/18/2023 3:48 PM SEALING MACHINE OPERATOR us Conchis Johns MD BLOOD BANK TEST ORDERABLES Final Result [facility] 3 [place] [address], * (ABNORMAL) CBC W/DIFF AUTOMATED (02/13/2023 12:56 PM CDT) WBC 7.3 4.5 - 11.0 x10'3/uL 02/13/2023 3:23 PM CDT [facility] RBC 3.72(L) 4.20 - 5.40 x10'6/uL 02/13/2023 3:23 PM CDT [facility] HGB 6.0(LL) 12.0 - 16.0 G/DL 02/13/2023 3:23 PM CDT [facility] Comment: This result has been called to MEGAN CASE by BILL GOLDSTEIN on 02 13 2023 at 1522, and has been read back. HCT 23.2(L) 38.0 - 48.0 % 02/13/2023 3:23 PM CDT [facility] MCV 62.4(L) 81.0 - 99.0 FL 02/13/2023 3:23 PM CDT [facility] MCH 16.1(L) 27.0 - 31.0 PG 02/13/2023 3:23 PM CDT [facility] MCHC 25.9(L) 32.0 - 36.0 G/DL 02/13/2023 3:23 PM CDT [facility] RDW 21.8(H) 11.5 - 14.5 % 02/13/2023 3:23 PM CDT [facility] PLT 350 130 - 400 x10'3/uL 02/13/2023 3:23 PM CDT [facility] DIFFERENTIAL TYPE AUTOMATED DIFFERENTIAL 02/13/2023 3:23 PM CDT [facility] NEUTROPHILS % 54.5 % 02/13/2023 3:23 PM CDT [facility] LYMPHOCYTES % 36.0 % 02/13/2023 3:23 PM CDT [facility] MONOCYTES % 7.8 % 02/13/2023 3:23 PM CDT [facility] EOSINOPHILS 0.5 % 02/13/2023 3:23 PM CDT [facility] BASOPHILS 0.8 % 02/13/2023 3:23 PM CDT [facility] IMMATURE GRANS % 0.4 % 02/14/20 3:23 PM CDT [facility] ABS. NEUTROPHILS TOTAL 4.00 1.80 - 7.70 x10'3/uL 02/13/2023 3:23 PM CDT [facility] ABS. LYMPHOCYTES 2.64 1.00 - 4.80 x10'3/uL 02/13/2023 3:23 PM CDT [facility] ABS. MONOCYTES 0.57 0.24 - 0.86 x10'3/uL 02/13/2023 3:23 PM CDT [facility] ABS. EOSINOPHILS 0.04 0.04 - 0.36 x10'3/uL 02/13/2023 3:23 PM CDT [facility] ABS. BASOPHILS 0.06 0.01 - 0.08 x10'3/uL 02/13/2023 3:23 PM CDT [facility] ABS. IMMATURE GRANULOCYTES 0.03 0.00 - 0.49 x10'3/uL 02/13/2023 3:23 PM CDT [facility] RBC MORPHOLOGY SLIDE REVIEWED 2022 3:23 PM CDT [facility] ANISO 1+ 02/13/2023 3:23 PM CDT [facility] HYPOCHROMASIA 2+ 02/13/2023 3:23 PM CDT [facility] MICRO 3+ 02/13/2023 3:23 PM CDT [facility] PLT EST. ADEQUATE 02/13/2023 3:23 PM CDT [facility] PATHOLOGIST COMMENT PATHOLOGIST REVIEW TO FOLLOW. 02/13/2023 3:23 PM CDT [facility] 02/13/2023 12:5 6 PM CDT us Conchis Johns MD LABORATORY Final Result Performing Organization Address City/[facility]/ZIP Co de Phone Number [facility] [address] [place] [address], * TYPE & SCREEN (02/13/2023 12:56 PM CDT) ABO/RH O POSITIVE 02/13/2023 3:09 PM CDT [facility] ANTIBODY SCREEN NEGATIVE 02/13/2023 3:09 PM CDT [facility] SAMPLE EXPIRATION 02/16/2023,2 359 02/13/2023 3:09 PM CDT [facility] 02/13/2023 12:5 6 PM CDT Conchis Johns MD BLOOD BANK TEST ORDERABLES Final Result Performing Organization Address [facility] Co de Phone Number [facility] [address] [place] [address], documented in this encounter Visit Diagnoses Diagnosis Menometrorrhagia- Primary Excessive or frequent menstruation Uterine prolapse Uterine prolapse without mention of vaginal wall prolapse documented in this encounter Additional Health Concerns Infection Onset Date Last Indicated Resolved Time COVID-19 Rule Out 01/21/2025 01/21/2025 01/21/2025 11:40 AM CDT Assessment Noted Time PHQ-9 Depression Total Score: 0 03/16/20 21 1:54 PM SEALING MACHINE OPERATOR documented as of this encounter Care Teams Arts And Sciences Dean Relationship Specialty Start Date End Date Lise Posada MD PCP - General FAMILY PRACTICE 12/31/17 documented as of this encounter
--- OUTSIDE RECORDS SUMMARY | 2025-02-18 17:01 | XMS_ITS | Encounter Summary ---
Author Organization [facility] Address [facility] [place] [address] Care Team Providers Care Inserter Promotional Item Name Role Phone Lise Poasda MD Primary Care Provider [phone] Encounter Details Date Type Department Care Team (Late st Contact Info) Description 07/26/2022 MyChart Message Enc [facility] Medical Group Family Medicine [facility] [address] [place] [phone] Lise Posada MD [address] [place] [address] Medical question Social History Tobacco Use Types Packs/Day Years Used Date Smoking Tobacco: Never Smokeless Tobacco: Never Alcohol Use Standard Drinks/Week Comments Yes 0 (1 standard drink = 0.6 oz pur e alcohol) occasional PHQ-2 Answer Date Recorded Patient Health Questionnaire-2 Score 2 05/30/2022 Comments No Sex and Gender Information Value Date Recorded Sex Assigned at Female 03/06/2022 10:50 AM SOLAR ENERGY SALES SPECIALIST Legal Sex Female 11:21 AM SOLAR ENERGY SALES SPECIALIST Gender Identity Female 03/06/2022 10:50 AM SOLAR ENERGY SALES SPECIALIST Sexual Orientation Straight 03/06/2022 10 :50 AM SOLAR ENERGY SALES SPECIALIST 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 encounter Plan of Treatment Upcoming Encounters Date Type Department Care Team (Latest Contact Info) Description 02/24/2025 11:40 AM SOLAR ENERGY SALES SPECIALIST Office Visit [facility] - [place] [address] [place] [phone] Lise Posada MD [address] [place] [address] 03/01/2025 4:01 PM SOLAR ENERGY SALES SPECIALIST Hospital Encounter [facility] [place] [address] Shelby Croft MD [address] [place] [address] [place] [address] 03/01/2025 4:01 PM SOLAR ENERGY SALES SPECIALIST - 03/01/2025 5:17 PM SOLAR ENERGY SALES SPECIALIST Surgery [facility] [place] [address] Shelby Croft MD [address] [place] [address] [place] [address] TRANSANAL HEMORRHOIDAL DEARTERIALIZATION 05/06/2025 11:00 AM SOLAR ENERGY SALES SPECIALIST Office Visit [facility] Multispecialty Care - [facility] 3 [facility], [address] [place] [phone] Yulia Tim, FLUORESCENT LAMP REPLACER 3 [facility] [address] [place] [address] Scheduled Procedures Name Priority Associated Diagnoses Date/Ti me HEMORRHOIDECTOMY THD HEMORRHOIDS K64.4 03/01/2025 4:01 PM SOLAR ENERGY SALES SPECIALIST documented as of this encounter Visit Diagnoses Not on filedocumented in this encounter Additional Health Concerns Infection Onset Date Last Indicated Resolved Time COVID-19 Rule Out 01/21/2025 01/21/2025 01/21/2025 11:40 AM CDT Assessment Noted Time PHQ-9 Depression Total Score: 0 03/16/20 21 1:54 PM SOLAR ENERGY SALES SPECIALIST documented as of this encounter Care Teams Inserter Promotional Item Relationship Specialty Start Date End Date Lise Posada MD PCP - General FAMILY PRACTICE 12/31/17 documented as of this encounter
--- OUTSIDE RECORDS SUMMARY | 2025-02-18 17:01 | XMS_ITS | Encounter Summary ---
Author Organization [facility] Address [address] [place] [address] Care Team Providers Care Lead Mechanical Engineer Name Role Phone Lise Posada MD Primary Care Provider [phone] Encounter Details Date Type Department Care Team (Late st Contact Info) Description 01/05/2022 MyChart Message Enc [facility] Medical Group Multispecialty Care - [address], [address] [place] [phone] Joseph Sommers MD [address] [place] [address] Lock toes Social History Tobacco Use Types [...] Sex Assigned at Female 03/06/2022 10:50 AM FACULTY INSTRUCTOR Legal Sex Female 11:21 AM FACULTY INSTRUCTOR Gender Identity Female 03/06/2022 10:50 AM FACULTY INSTRUCTOR Sexual Orientation Straight 03/06/2022 10 :50 AM FACULTY INSTRUCTOR Occupation Industry Job Start Date Job [...] (Latest Contact Info) Description 02/24/2025 11:40 AM FACULTY INSTRUCTOR Office Visit [facility] Medical Group Family Medicine - [address] [phone] Lise Posada MD [address] [place] [address] 03/01/2025 4:01 PM FACULTY INSTRUCTOR Hospital Encounter [facility] [place] [address] Shelby Croft MD [address] [facility] [address] [place] [address] 03/01/2025 4:01 PM FACULTY INSTRUCTOR - 03/01/2025 5:17 PM FACULTY INSTRUCTOR Surgery [place] [address] Shelby Croft MD [facility] [address] [place] [address] TRANSANAL HEMORRHOIDAL DEARTERIALIZATION 05/06/2025 11:00 AM FACULTY INSTRUCTOR Office Visit [facility] Medical Group Multispecialty Care - [facility] 3 [facility], [address] [place] [address] Yulia Tim APRN [address] [facility] [address] [place] [address] Scheduled Procedures Name Priority Associated Diagnoses Date/Ti me HEMORRHOIDECTOMY THD HEMORRHOIDS K64.4 03/01/2025 4:01 PM FACULTY INSTRUCTOR documented as of this encounter Visit Diagnoses Not on filedocumented in this encounter Additional Health Concerns Infection Onset Date Last Indicated Resolved Time COVID-19 Rule Out 01/21/2025 01/21/2025 01/21/2025 11:40 AM CDT Assessment Noted Time PHQ-9 Depression Total Score: 0 03/16/20 21 1:54 PM FACULTY INSTRUCTOR documented as of this encounter Care Teams Lead Mechanical Engineer Relationship Specialty Start Date End Date Lise Posada MD PCP - General FAMILY PRACTICE 12/31/17 documented as of this encounter
--- OUTSIDE RECORDS SUMMARY | 2025-02-18 17:01 | XMS_ITS | Encounter Summary ---
Author Organization [facility] Address [facility] [place] [address] Care Team Providers Care Assistant Director Of Public Works Name Role Phone Lise Posada MD Primary Care Provider [phone] Encounter Details Date Type Department Care Team (Latest Contact Info) Description 09/23/2024 MyChart Message Enc [facility] Medical Group Multispecialty Care - [facility] 3 [facility], [address] [place] [phone] Jaya Carnes MD 3 [facility] Rickey [address] [place] [address] Tomorrow surgery Social History Tobacco Use Types Packs/Day Years Used Date Smoking Tobacco: Never Smokeless Tobacco: Never Alcohol Use Standard Drinks/Week Comments Not Currently 3.3 (1 standard drink = 0.6 oz p ure alcohol) occasional PHQ-2 Answer Date Recorded Patient Health Questionnaire-2 Score 0 07/15/2024 Comments No Sex and Gender Information Value Date Recorded Sex Assigned at Female 03/06/2022 10:50 AM FIELD UNDERWRITER Legal Sex Female 11:21 AM FIELD UNDERWRITER Gender Identity Female 03/06/2022 10:50 AM FIELD UNDERWRITER Sexual Orientation Straight 03/06/2022 10 :50 AM FIELD UNDERWRITER 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 Wish to be (Past 1 Month) No 09/24/2024 12:52 PM CDT Glendy Atkinson RN Ac tive 2. Non-Specific Active Suicidal Thoughts (Past 1 Month) No 09/24/2024 12:52 PM EDWINT Glendy Atkinson RN Ac tive 6. Suicidal Behavior (Lifetime) No 09/24/2024 12:52 PM CDGlendy Dempsey RN Ac tive documented as of this encounter Plan of Treatment Upcoming Encounters Date Type Department Care Team (Latest Contact Info) Description 02/24/2025 11:40 AM FIELD UNDERWRITER Office Visit [facility] Medical Group Family Medicine - [address] [phone] Lise Posada MD [address] [place] [address] 03/01/2025 4:01 PM FIELD UNDERWRITER Hospital Encounter [facility] [place] [address] Shelby Croft MD [address] [place] [address] 03/01/2025 4:01 PM FIELD UNDERWRITER - 03/01/2025 5:17 PM FIELD UNDERWRITER Surgery [facility] [place] [address] Shelby Croft MD [address] [place] [address] [place] [address] TRANSANAL HEMORRHOIDAL DEARTERIALIZATION 05/06/2025 11:00 AM FIELD UNDERWRITER Office Visit [facility] Medical Group Multispecialty Care - [facility] 3 [facility], [address] [place] [address] Yulia Tim APRN 3 [facility] [address] [place] [address] Scheduled Procedures Name Priority Associated Diagnoses Date/Ti me HEMORRHOIDECTOMY THD HEMORRHOIDS K64.4 03/01/2025 4:01 PM FIELD UNDERWRITER documented as of this encounter Visit Diagnoses Not on filedocumented in this encounter Additional Health Concerns Infection Onset Date Last Indicated Resolved Time COVID-19 Rule Out 01/21/2025 01/21/2025 01/21/2025 11:40 AM CDT Assessment Noted Time PHQ-9 Depression Total Score: 6 07/16/19 25 1:24 PM CDT documented as of this encounter Care Teams Assistant Director Of Public Works Relationship Specialty Start Date End Date Lise Posada MD PCP - General FAMILY PRACTICE 12/31/17 documented as of this encounter
--- OUTSIDE RECORDS SUMMARY | 2025-02-18 17:01 | XMS_ITS | Encounter Summary ---
Author Organization [facility] Address [address] [place] [address] Care Team Providers Care Block Inspector Name Role Phone Lise Posada MD Primary Care Provider [phone] Encounter Details Date Type Department Care Team (Late st Contact Info) Description 10/11/2023 MyCGrows Upt Message Enc [facility] Medical Group Family Medicine [facility] [address] [place] [address] [place] [address] [place] [address] My upper right side and back [...] Sex Assigned at Female 03/06/2022 10:50 AM DINING MANAGER Legal Sex Female 11:21 AM DINING MANAGER Gender Identity Female 03/06/2022 10:50 AM DINING MANAGER Sexual Orientation Straight 03/06/2022 10 :50 AM DINING MANAGER Occupation Industry Job Start Date Job [...] (Latest Contact Info) Description 02/24/2025 11:40 AM DINING MANAGER Office Visit [facility] Family Medicine - [address] [phone] Lise Posada MD [address] [place] [address] 03/01/2025 4:01 PM DINING MANAGER Hospital Encounter [facility] [place] [address] Shelby Croft MD [address] [place] [address] 03/01/2025 4:01 PM DINING MANAGER - 03/01/2025 5:17 PM DINING MANAGER Surgery [facility] [place] [address] Shelby Croft MD [address] [place] [address] [phone] TRANSANAL HEMORRHOIDAL DEARTERIALIZATION 05/06/2025 11:00 AM DINING MANAGER Office Visit [facility] - [facility] 3 [facility], [address] [place] [address] Yulia Tim APRN 3 [facility] [address] [place] [address] Scheduled Procedures Name Priority Associated Diagnoses Date/Ti me HEMORRHOIDECTOMY THD HEMORRHOIDS K64.4 03/01/2025 4:01 PM DINING MANAGER documented as of this encounter Visit Diagnoses Not on filedocumented in this encounter Additional Health Concerns Infection Onset Date Last Indicated Resolved Time COVID-19 Rule Out 01/21/2025 01/21/2025 01/21/2025 11:40 AM CDT Assessment Noted Time PHQ-9 Depression Total Score: 5 09/19/19 24 10:57 AM CDT documented as of this encounter Care Teams Block Inspector Relationship Specialty Start Date End Date Lise Posada MD PCP - General FAMILY PRACTICE 12/31/17 documented as of this encounter
--- OUTSIDE RECORDS SUMMARY | 2025-02-18 17:01 | XMS_ITS | Encounter Summary ---
Author Organization [facility] Address [facility] [place] [address] Care Team Providers Care Juvenile Corrections Officer Name Role Phone Lise Posada MD Primary Care Provider [phone] Encounter Details Date Type Department Care Team (Late st Contact Info) Description 01/18/2022 MyCROCKETHOMEt Message Enc [facility] Medical Group Family Medicine [facility] [address] [place] [address] [place] [address] [place] [address] Blood work Social History Tobacco Use [...] Sex Assigned at Female 03/06/2022 10:50 AM CLAIMS COORDINATOR Legal Sex Female 11:21 AM CLAIMS COORDINATOR Gender Identity Female 03/06/2022 10:50 AM CLAIMS COORDINATOR Sexual Orientation Straight 03/06/2022 10 :50 AM CLAIMS COORDINATOR Occupation Industry Job Start Date Job [...] PM CDT Brea Schrader RN Active * Alger Suicide Severity Rating Scale (Screener/Recent Self-Report) Question Answer Date of Assessment Author Status 1. Wish to be (Past 1 Month) No 01/19/2022 1:01 PM CDT Brea Schrader RN Active 2. Non-Specific Active Suicidal Thoughts (Past 1 Month) No 01/19/2022 1:01 PM EDWINT Brea Schrader RN Active 6. Suicidal Behavior (Lifetime) No 01/19/2022 1:01 PM CDT Brea Schrader RN Active documented as of this encounter Plan of Treatment Upcoming Encounters Date Type Department Care Team (Latest Contact Info) Description 02/24/2025 11:40 AM CLAIMS COORDINATOR Office Visit [facility] Medical Group Family Medicine - [place] [phone] [place] [phone] Lise Posada MD [address] [place] [address] 03/01/2025 4:01 PM CLAIMS COORDINATOR Hospital Encounter [facility] [place], [place] [phone] Shelby Croft MD [facility] [address] [address] 03/01/2025 4:01 PM CLAIMS COORDINATOR - 03/01/2025 5:17 PM CLAIMS COORDINATOR [place] [address] Shelby Croft MD [address] [facility] [address] [place] [address] TRANSANAL HEMORRHOIDAL DEARTERIALIZATION 05/06/2025 11:00 AM CLAIMS COORDINATOR Office Visit [facility] Medical Group Multispecialty Care - [facility] 3 [facility], [address] [place] [address] Yulia Tim, ENDOSCOPE TECHNICIAN 3 [facility] [address] [place] [address] Scheduled Procedures Name Priority Associated Diagnoses Date/Ti me HEMORRHOIDECTOMY THD HEMORRHOIDS K64.4 03/01/2025 4:01 PM CLAIMS COORDINATOR documented as of this encounter Visit Diagnoses Not on filedocumented in this encounter Additional Health Concerns Infection Onset Date Last Indicated Resolved Time COVID-19 Rule Out 01/21/2025 01/21/2025 01/21/2025 11:40 AM CDT Assessment Noted Time PHQ-9 Depression Total Score: 0 03/16/20 21 1:54 PM CLAIMS COORDINATOR documented as of this encounter Care Teams Juvenile Corrections Officer Relationship Specialty Start Date End Date Lise Posada MD PCP - General FAMILY PRACTICE 12/31/17 documented as of this encounter
--- OUTSIDE RECORDS SUMMARY | 2025-02-18 17:01 | XMS_ITS | Encounter Summary ---
Author Organization [facility] Address [address] [place] [address] Care Team Providers Care Sample Steamer Name Role Phone Lise Posada MD Primary Care Provider [phone] Encounter Details Date Type Department Care Team (Latest Contact Info) Description 01/22/2025 Results Follow-Up [facility] Medical Group Family Medicine [facility] [address] [place] [address] Lise Posada MD [address] [place] [address] IRON SAT PANEL (IRON,IBC,%SAT), CBC [...] Sex Assigned at Female 03/06/2022 10:50 AM REFERRAL NURSE Legal Sex Female 11:21 AM REFERRAL NURSE Gender Identity Female 03/06/2022 10:50 AM REFERRAL NURSE Sexual Orientation Straight 03/06/2022 10 :50 AM REFERRAL NURSE Occupation Industry Job Start Date Job End [...] (Latest Contact Info) Description 02/24/2025 11:40 AM REFERRAL NURSE Office Visit [facility] Family Medicine [facility] [address] [place] [address] Lise Posada MD [address] [place] [address] 03/01/2025 4:01 PM REFERRAL NURSE Hospital Encounter [facility] [place] [address] Shelby Croft MD [address] [place] [address] 03/01/2025 4:01 PM REFERRAL NURSE - 03/01/2025 5:17 PM REFERRAL NURSE Surgery [facility] [place] [address] Shelby Croft MD [address] [place] [address] TRANSANAL HEMORRHOIDAL DEARTERIALIZATION 05/06/2025 11:00 AM REFERRAL NURSE Office Visit [facility] - [facility] 3 [facility], [address] [place] [address] Yulia Tim APRN 3 [facility] [address] [place] [address] Scheduled Procedures Name Priority Associated Diagnoses Date/Ti me HEMORRHOIDECTOMY THD HEMORRHOIDS K64.4 03/01/2025 4:01 PM REFERRAL NURSE documented as of this encounter Visit Diagnoses Not on filedocumented in this encounter Additional Health Concerns Assessment Noted Time PHQ-9 Depression Total Score: 5 11/10/19 25 9:04 AM CDT documented as of this encounter Care Teams Sample Steamer Relationship Specialty Start Date End Date Lise Posada MD PCP - General FAMILY PRACTICE 12/31/17 documented as of this encounter
--- OUTSIDE RECORDS SUMMARY | 2025-02-18 17:01 | XMS_ITS | Encounter Summary ---
Author Organization [facility] Address [facility] [place] [address] Care Team Providers Care Locomotive Operator Name Role Phone Lise Posada MD Primary Care Provider [phone] Encounter Details Date Type Department Care Team (Late st Contact Info) Description 12/23/2023 MyChart Message Enc [facility] Medical Group Family Medicine [facility] [address] [place] [address] Lise Posada MD [address] [place] [address] Referral letter Social History Tobacco Use Types Packs/Day Years Used Date Smoking Tobacco: Never Smokeless Tobacco: Never Alcohol Use Standard Drinks/Week Comments Yes 0 (1 standard drink = 0.6 oz pur e alcohol) occasional PHQ-2 Answer Date Recorded Patient Health Questionnaire-2 Score 0 12/20/2023 Comments No Sex and Gender Information Value Date Recorded Sex Assigned at Female 03/06/2022 10:50 AM CORN GROWER Legal Sex Female 11:21 AM CORN GROWER Gender Identity Female 03/06/2022 10:50 AM CORN GROWER Sexual Orientation Straight 03/06/2022 10 :50 AM CORN GROWER 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 encounter Plan of Treatment Upcoming Encounters Date Type Department Care Team (Latest Contact Info) Description 02/24/2025 11:40 AM CORN GROWER Office Visit [facility] Family Medicine - [place] [address] [place] [address] Lise Posada MD [address] [place] [address] 03/01/2025 4:01 PM CORN GROWER Hospital Encounter [facility] [place] [address] Shelby Croft MD [address] [place] [address] [place] [address] 03/01/2025 4:01 PM CORN GROWER - 03/01/2025 5:17 PM CORN GROWER Surgery [facility] [place] [address] Shelby Croft MD [address] [place] [address] [place] [address] TRANSANAL HEMORRHOIDAL DEARTERIALIZATION 05/06/2025 11:00 AM CORN GROWER Office Visit [facility] Multispecialty Care - [facility] 3 [facility], [address] [place] [phone] Yulia Tim, PALLIATIVE CARE PHYSICIAN 3 [facility] [address] [place] [address] Scheduled Procedures Name Priority Associated Diagnoses Date/Ti me HEMORRHOIDECTOMY THD HEMORRHOIDS K64.4 03/01/2025 4:01 PM CORN GROWER documented as of this encounter Visit Diagnoses Not on filedocumented in this encounter Additional Health Concerns Infection Onset Date Last Indicated Resolved Time COVID-19 Rule Out 01/21/2025 01/21/2025 01/21/2025 11:40 AM CDT Assessment Noted Time PHQ-9 Depression Total Score: 5 09/19/19 24 10:57 AM CDT documented as of this encounter Care Teams Locomotive Operator Relationship Specialty Start Date End Date Lise Posada MD PCP - General FAMILY PRACTICE 12/31/17 documented as of this encounter
--- OUTSIDE RECORDS SUMMARY | 2025-02-18 17:01 | XMS_ITS | Clinical Summary ---
Author Organization [facility] Address [address] [facility] [place] [address] Care Team Providers Care Storeroom Attendant Name Role Phone Lise Posada MD Primary Care Provider [phone] Louise Starkey RN Unavailable Unavailable Olivia Torres CAD DESIGNER DRAFTER-TICKET SPECULATOR Unavailable [phone] Source Comments [facility],non-owned Affiliates and Associated Physician Practices is amultiple site organization consisting of ambulatory clinics and hospital sitesin [place], [place], [place] and [place]. This disclosure is being madepursuant to the Care Everywhere program and may not contain all information available regarding this patient. Last updated 18.[facility] Allergies No known active allergies Medications * [...] 02/09/2025 Refill [facility] - Dermatology [address] [place] [phone] Arabella Rodriguez MD Refill Request 12/10/2024 Refill [facility] - GI [address] [place] [phone] Olivia Torres, CAD DESIGNER DRAFTER-TICKET SPECULATOR Refill Request from Last 3 Months Family [...] PM CDT Legal Sex Female 6:10 PM ASSISTANT CHILD CARE TEACHER Gender Identity Female 07/12/2021 7:16 PM CDT Sexual Orientation Straight 07/12/2021 7: 16 PM CDT Last Filed Vital Signs Vital Sign Reading Time Taken Comments Blood Pressure 132/71 05/18/2024 10:32 AM ASSISTANT CHILD CARE TEACHER Pulse 58 05/18/2024 10:32 AM ASSISTANT CHILD CARE TEACHER Temperature 37 C (98.6 F) 05/18/2024 10:32 AM ASSISTANT CHILD CARE TEACHER Respiratory Rate 16 02/02/2022 1:26 PM CDT Oxygen Saturation 99% 05/18/2024 10:32 AM ASSISTANT CHILD CARE TEACHER Inhaled Oxygen Concentration - - Weight 72.2 kg (159 lb 3.2 oz) 05/18/2024 10:32 AM ASSISTANT CHILD CARE TEACHER Height 165.1 cm (5' 5) 05/18/2024 10:32 AM ASSISTANT CHILD CARE TEACHER Body Mass Index 26.49 05/18/2024 10:32 AM ASSISTANT CHILD CARE TEACHER Plan of Treatment Upcoming Encounters Date Type Department Care Team (Late st Contact Info) Description 05/18/2025 12:30 PM ASSISTANT CHILD CARE TEACHER Procedure visit [facility] - GI [address] [place] [phone] 05/18/2025 1:00 PM ASSISTANT CHILD CARE TEACHER Office Visit [facility] - GI [address] [place] [phone] Olivia Torres, CAD DESIGNER DRAFTER-TICKET SPECULATOR [address] [place] [address] [address] [place] [address] Health Maintenance Due Date Last Done Comments [...] Management General On track( 025 4:44 PM ASSISTANT CHILD CARE TEACHER) Louise Srivastava, RN Note: Expected end date: ongoing Interventions: Take all medications as prescribed Let your doctor know right away about any changes in your medications Make sure to request a refill of your medication at least one week prior to your last dose Procedures Procedure Name Priority Date/Time Associated Diagnosis Comments COMPREHENSIVE METABOLIC PANEL Routine 05/18/2024 12:11 PM ASSISTANT CHILD CARE TEACHER Hepatic steatosis ENDOSCOPY, COLON, DIAGNOSTIC Routine 07/10/2021 2:43 PM CDT HEPATITIS C AB SCREEN RFLX NAAT QUANT AM Draw 07/10/2021 4:40 AM CDT HIV-1 HIV-2 ANTIBODY + HIV P24 AG PANEL STAT 07/08/2021 10:38 PM CDT from Last 3 Months or Most Recently Relevant to Health Maintenance Results * (ABNORMAL) COMPREHENSIVE METABOLIC PANEL (05/18/2024 12:11 PM ASSISTANT CHILD CARE TEACHER) BUN 7 7 - 26 mg/dL 05/18/2024 1:28 PM [facility] Creatinine 0.48(L) 0.56 - 0.96 mg/dL 05/18/2024 1:28 PM [facility] Sodium 142 136 - 145 mmol/L 05/18/2024 1:28 PM [facility] Potassium 2.8(L) 3.5 - 4.5 mmol/L 05/18/2024 1:28 PM [facility] Chloride 107 98 - 107 mmol/L 05/18/2024 1:28 PM [facility] CO2 28 22 - 29 mmol/L 05/18/2024 1:28 PM [facility] Glucose 93 70 - 99 mg/dL 05/18/2024 1:28 PM [facility] Calcium 9.1 8.4 - 10.2 mg/dL 05/18/2024 1:28 PM [facility] Protein Total 7.2 6.0 - 8.3 g/dL 05/18/2024 1:28 PM [facility] Albumin 3.9 3.4 - 5.0 g/dL 05/18/2024 1:28 PM [facility] Bilirubin Total 0.3 0.2 - 1.2 mg/dL 05/18/2024 1:28 PM [facility] Alkaline Phosphatase 60 40 - 150 U/L 05/18/2024 1:28 PM [facility] ALT 14 5 - 55 U/L 05/18/2024 1:28 PM [facility] AST 16 5 - 34 U/L 05/18/2024 1:28 PM [facility] Anion Gap 7 6 - 16 05/18/2024 1:28 PM [facility] BUN/Creatinine Ratio 15 7 - 23 05/18/2024 1:28 PM [facility] Osmolality Calculated 292 275 - 295 mOsm/kg 05/18/2024 1:28 PM [facility] Albumin/Globulin Ratio 1.2 1.1 - 2.3 05/18/2024 1:28 PM [facility] eGFR by CKD-EPI >90 >=90 mL/min/1.7 3 m2 05/18/2024 1:28 PM [facility] Blood BLOOD SPECIMEN / Unknown Lab Venipuncture / Unknown 05/18/2024 12:11 PM ASSISTANT CHILD CARE TEACHER 05/18/2024 12:52 PM [facility] us Olivia Torres CAD DESIGNER DRAFTER-TICKET SPECULATOR LAB - CHEMISTRY ORD ERABLES Final Result [facility] [address] [place] [address], [facility] [phone] * ENDOSCOPY, COLON, DIAGNOSTIC (07/10/2021 2:43 PM [...] bowel preparation was evaluated using the BBPS (F[place]yth Bowel Preparation Scale) with scores of: Right [...] entire procedure. Procedure Code(s): --- Professional --- 32566, Colonoscopy, flexible; with biopsy, single or multiple Diagnosis Code(s): --- Professional --- K64.8, Other hemorrhoids K63.5, Polyp of colon K92.1, Melena (includes Hematochezia) K57.30, Diverticulosis of large intestine without perforation or abscess without bleeding CPT copyright 2019 [employer]. All rights reserved. The codes documented in this report are preliminary and upon grip boss review may be revised to meet current compliance requirements. Peter Caldwell MD 07/10/2021 3:18:26 PM Note Initiated On: 07/10/2021 2:43 PM Number of Addenda: [address] 07/10/2021 2:43 PM CDT Peter Caldwell MD GI PROCEDURE ORDERAB LES Edited Result - Final [facility] * HEPATITIS C AB SCREEN RFLX NAAT QUANT (07/10/2021 4:40 AM CDT) Hepatitis C Antibody Non-react edil Non-reac tive 07/10/2021 6:23 AM CDT [facility] Comment:Hepatitis C Antibody screen [...] LAB - CHEMISTRY ORDERABLES F inal Result [address] [address], [place] [phone] * HIV-1 HIV-2 ANTIBODY + HIV P24 AG PANEL (07/08/2021 10:38 PM CDT) HIV Antigen/Antibod y 1 & 2 Non-reacti ve Non-react edil 07/08/2021 11:31 PM CDT [facility] Comment:No Laboratory eviden ce of HIV infection. Blood BLOOD SPECIMEN / Unknown Venipuncture / Unknown 07/08/2021 10:38 PM CDT 07/08/2021 10:42 PM CDT us Deshaun Luna MD LAB - CHEMISTRY ORDERABLES Final Result Performing Organization Address City/[facility]/ZIP Co de Phone Number [address] [address], [place] [phone] from Last 3 Months or Most Recently Relevant to Health Maintenance Insurance [facility] Advance Directives * Full Code (Latest Code Status on File) Date Activated Date Inactivated Comments 07/08/2021 7:36 PM 07/10/2021 10:00 PM Care Teams Storeroom Attendant Relationship Specialty Start Date End Date Lise Posada MD [address] [place] [address] PCP - General Family Medicine 02/17/18 Louise tSarkey, RN Registered Nurse Hepatology 05/18/24 Olivia Torres, CAD DESIGNER DRAFTER-TICKET SPECULATOR [address] [facility] [place] [place] [address] Nurse Practitioner Nurse Practitioner Family 05/19/24
--- OUTSIDE RECORDS SUMMARY | 2025-02-18 17:01 | XMS_ITS | Encounter Summary ---
Author Organization [facility] Address [facility] [place] [address] Care Team Providers Care Crown Assembly Machine Operator Name Role Phone Lise Posada MD Primary Care Provider [phone] Encounter Details Date Type Department Care Team (Late st Contact Info) Description 01/31/2022 MyCCirclet Message Enc [facility] Medical Group Family Medicine [facility] [address] [place] [address] [place] [address] [place] [address] Nurse visit Social History Tobacco Use [...] Sex Assigned at Female 03/06/2022 10:50 AM WELL LOGGING OPERATOR MUD ANALYSIS Legal Sex Female 11:21 AM WELL LOGGING OPERATOR MUD ANALYSIS Gender Identity Female 03/06/2022 10:50 AM WELL LOGGING OPERATOR MUD ANALYSIS Sexual Orientation Straight 03/06/2022 10 :50 AM WELL LOGGING OPERATOR MUD ANALYSIS Occupation Industry Job Start Date Job End [...] (Latest Contact Info) Description 02/24/2025 11:40 AM WELL LOGGING OPERATOR MUD ANALYSIS Office Visit [facility] Family Medicine - [place] [address] [place] [phone] Lise Posada MD [address] [place] [address] 03/01/2025 4:01 PM WELL LOGGING OPERATOR MUD ANALYSIS Hospital Encounter [facility] [place] [address] Shelby Croft MD [facility]4 [facility] [address] [place] [phone] 03/01/2025 4:01 PM WELL LOGGING OPERATOR MUD ANALYSIS - 03/01/2025 5:17 PM WELL LOGGING OPERATOR MUD ANALYSIS Surgery [facility] [place] [address] Shelby Croft MD [facility] [address] [place] [address] TRANSANAL HEMORRHOIDAL DEARTERIALIZATION 05/06/2025 11:00 AM WELL LOGGING OPERATOR MUD ANALYSIS Office Visit [facility] Multispecialty Care - [facility] 3 [facility], [address] [place] [phone] Yulia Tim APRN 3 [facility] [address] [place] [address] Scheduled Procedures Name Priority Associated Diagnoses Date/Ti me HEMORRHOIDECTOMY THD HEMORRHOIDS K64.4 03/01/2025 4:01 PM WELL LOGGING OPERATOR MUD ANALYSIS documented as of this encounter Visit Diagnoses Not on filedocumented in this encounter Additional Health Concerns Infection Onset Date Last Indicated Resolved Time COVID-19 Rule Out 01/21/2025 01/21/2025 01/21/2025 11:40 AM CDT Assessment Noted Time PHQ-9 Depression Total Score: 0 03/16/20 21 1:54 PM WELL LOGGING OPERATOR MUD ANALYSIS documented as of this encounter Care Teams Crown Assembly Machine Operator Relationship Specialty Start Date End Date Lise Posada MD PCP - General FAMILY PRACTICE 12/31/17 documented as of this encounter
--- OUTSIDE RECORDS SUMMARY | 2025-02-18 17:01 | XMS_ITS | Encounter Summary ---
Author Organization [facility] Address [address] [place] [address] Care Team Providers Care Internet Salesperson Name Role Phone Lise Posada MD Primary Care Provider [phone] Encounter Details Date Type Department Care Team (Late st Contact Info) Description 02/15/2023 Therapy Plan [facility] Infusion Services [place] [phone] Conchis Johns MD [address] [place] [address] Social History Tobacco Use Types Packs/Day Years Used Date Smoking Tobacco: Never Smokeless Tobacco: Never Alcohol Use Standard Drinks/Week Comments Yes 0 (1 standard drink = 0.6 oz pur e alcohol) occasional PHQ-2 Answer Date Recorded Patient Health Questionnaire-2 Score 2 05/30/2022 Comments No Sex and Gender Information Value Date Recorded Sex Assigned at Female 03/06/2022 10:50 AM ADVENTURE THERAPIST Legal Sex Female 11:21 AM ADVENTURE THERAPIST Gender Identity Female 03/06/2022 10:50 AM ADVENTURE THERAPIST Sexual Orientation Straight 03/06/2022 10 :50 AM ADVENTURE THERAPIST 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 encounter Plan of Treatment Upcoming Encounters Date Type Department Care Team (Latest Contact Info) Description 02/24/2025 11:40 AM ADVENTURE THERAPIST Office Visit [facility] Family Medicine - [place] [address] [place] [address] Lise Posada MD [address] [place] [address] 03/01/2025 4:01 PM ADVENTURE THERAPIST Hospital Encounter [facility] [place] [address] Shelby Croft MD [address] [place] [address] [place] [address] 03/01/2025 4:01 PM ADVENTURE THERAPIST - 03/01/2025 5:17 PM ADVENTURE THERAPIST [place] [address] Shelby Croft MD [address] [place] [address] [place] [address] TRANSANAL HEMORRHOIDAL DEARTERIALIZATION 05/06/2025 11:00 AM ADVENTURE THERAPIST Office Visit [facility] Multispecialty Care - [facility] 3 [facility], [address] [place] [address] Yulia Tim, DIAMOND DIE DRILLER 3 [facility] [address] [place] [address] Scheduled Procedures Name Priority Associated Diagnoses Date/Ti me HEMORRHOIDECTOMY THD HEMORRHOIDS K64.4 03/01/2025 4:01 PM ADVENTURE THERAPIST documented as of this encounter Visit Diagnoses Diagnosis Anemia- Primary Anemia, unspecified documented in this encounter Additional Health Concerns Infection Onset Date Last Indicated Resolved Time COVID-19 Rule Out 01/21/2025 01/21/2025 01/21/2025 11:40 AM CDT Assessment Noted Time PHQ-9 Depression Total Score: 0 03/16/20 21 1:54 PM ADVENTURE THERAPIST documented as of this encounter Care Teams Internet Salesperson Relationship Specialty Start Date End Date Lise Posada MD PCP - General FAMILY PRACTICE 12/31/17 documented as of this encounter
--- OUTSIDE RECORDS SUMMARY | 2025-02-18 17:01 | XMS_ITS | Encounter Summary ---
Author Organization [facility] Address [address] [place] [address] Care Team Providers Care Liner Assembler Name Role Phone Lise Posada MD Primary Care Provider [phone] Encounter Details Date Type Department Care Team (Late st Contact Info) Description 01/06/2024 MyChart Message Enc [facility] Medical Group Family [facility] [address] [place] [address] [place] [address] [place] [address] Hepatogology Social History Tobacco Use Types Packs/Day Years Used Date Smoking Tobacco: Never Smokeless Tobacco: Never Alcohol Use Standard Drinks/Week Comments Yes 0 (1 standard drink = 0.6 oz pur e alcohol) occasional PHQ-2 Answer Date Recorded Patient Health Questionnaire-2 Score 0 12/20/2023 Comments No Sex and Gender Information Value Date Recorded Sex Assigned at Female 03/06/2022 10:50 AM LINE INSTALLER REPAIRER Legal Sex Female 11:21 AM LINE INSTALLER REPAIRER Gender Identity Female 03/06/2022 10:50 AM LINE INSTALLER REPAIRER Sexual Orientation Straight 03/06/2022 10 :50 AM LINE INSTALLER REPAIRER 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 encounter Plan of Treatment Upcoming Encounters Date Type Department Care Team (Latest Contact Info) Description 02/24/2025 11:40 AM LINE INSTALLER REPAIRER Office Visit [facility] Family Medicine - [place] [address] [place] [address] Lise Posada MD [address] [place] [address] 03/01/2025 4:01 PM LINE INSTALLER REPAIRER Hospital Encounter [facility] [place] [address] Shelby Croft MD [address] [place] [address] [place] [address] 03/01/2025 4:01 PM LINE INSTALLER REPAIRER - 03/01/2025 5:17 PM LINE INSTALLER REPAIRER [place] [address] Shelby Croft MD [address] [place] [address] [place] [address] TRANSANAL HEMORRHOIDAL DEARTERIALIZATION 05/06/2025 11:00 AM LINE INSTALLER REPAIRER Office Visit [facility] Multispecialty Care - [facility] 3 [facility], [address] [place] [address] Yulia Tim, TORSTEN 3 [facility] [address] [place] [address] Scheduled Procedures Name Priority Associated Diagnoses Date/Ti me HEMORRHOIDECTOMY THD HEMORRHOIDS K64.4 03/01/2025 4:01 PM LINE INSTALLER REPAIRER documented as of this encounter Visit Diagnoses Not on filedocumented in this encounter Additional Health Concerns Infection Onset Date Last Indicated Resolved Time COVID-19 Rule Out 01/21/2025 01/21/2025 01/21/2025 11:40 AM CDT Assessment Noted Time PHQ-9 Depression Total Score: 5 09/19/19 24 10:57 AM CDT documented as of this encounter Care Teams Liner Assembler Relationship Specialty Start Date End Date Lise Posada MD PCP - General FAMILY PRACTICE 12/31/17 documented as of this encounter
--- OUTSIDE RECORDS SUMMARY | 2025-02-18 17:01 | XMS_ITS | Encounter Summary ---
Author Organization [facility] Address [facility] [place] [address] Care Team Providers Care Olive Pitter Name Role Phone Lise Posada MD Primary Care Provider [phone] Encounter Details Date Type Department Care Team (Late st Contact Info) Description 09/23/2023 PAKt Message Enc [facility] Medical Group Family Medicine [facility] [address] [place] [address] [place] [address] [place] [address] Blood work Social History Tobacco Use Types Packs/Day Years Used Date Smoking Tobacco: Never Smokeless Tobacco: Never Alcohol Use Standard Drinks/Week Comments Yes 0 (1 standard drink = 0.6 oz pur e alcohol) occasional PHQ-2 Answer Date Recorded Patient Health Questionnaire-2 Score 0 09/19/2023 Comments No Sex and Gender Information Value Date Recorded Sex Assigned at Female 03/06/2022 10:50 AM SENIOR PROJECT ENGINEER Legal Sex Female 11:21 AM SENIOR PROJECT ENGINEER Gender Identity Female 03/06/2022 10:50 AM SENIOR PROJECT ENGINEER Sexual Orientation Straight 03/06/2022 10 :50 AM SENIOR PROJECT ENGINEER Occupation Industry Job Start Date Job End Date [facility] Not on file Not on file Not [...] Contact Info) Description 02/24/2025 11:40 AM SENIOR PROJECT ENGINEER Office Visit [facility] Family Medicine - [address] [address] Lise Posada MD [address] [place] [address] 03/01/2025 4:01 PM SENIOR PROJECT ENGINEER Hospital Encounter [facility] [place] [address] Shelby Croft MD [address] [place] [address] [place] [address] 03/01/2025 4:01 PM SENIOR PROJECT ENGINEER - 03/01/2025 5:17 PM SENIOR PROJECT ENGINEER Surgery [facility] [address] Shelby Croft MD [facility]4 [facility] [address] [place], [place] [phone] TRANSANAL HEMORRHOIDAL DEARTERIALIZATION 05/06/2025 11:00 AM SENIOR PROJECT ENGINEER Office Visit [facility] Multispecialty Care - [facility] 3 [facility], [address] [place] [phone] Yulia Tim, HYDROGENATION OPERATOR 3 [facility] [address] [place] [address] Scheduled Procedures Name Priority Associated Diagnoses Date/Ti me HEMORRHOIDECTOMY THD HEMORRHOIDS K64.4 03/01/2025 4:01 PM SENIOR PROJECT ENGINEER documented as of this encounter Visit Diagnoses Not on filedocumented in this encounter Additional Health Concerns Infection Onset Date Last Indicated Resolved Time COVID-19 Rule Out 01/21/2025 01/21/2025 01/21/2025 11:40 AM CDT Assessment Noted Time PHQ-9 Depression Total Score: 5 09/19/19 24 10:57 AM CDT documented as of this encounter Care Teams Olive Pitter Relationship Specialty Start Date End Date Lise Posada MD PCP - General FAMILY PRACTICE 12/31/17 documented as of this encounter
--- OUTSIDE RECORDS SUMMARY | 2025-02-18 17:01 | XMS_ITS | Encounter Summary ---
Author Organization [facility] Address [facility]ly [facility]6 [place] [address] Care Team Providers Care Chief Sustainability Officer Name Role Phone Lise Posada MD Primary Care Provider [phone] Encounter Details Date Type Department Care Team (Latest Contact Info) Description 12/04/[address] [facility] Medical [facility] Multispecialty Care - [facility] 3 [facility], [address] [place] [phone] Jaya Carnes MD 3 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 [place] [address] Shelby Croft MD [address] [facility] [address] [place] [address] 03/01/2025 4:01 PM DOG RACES MANAGER - 03/01/2025 5:17 PM DOG RACES MANAGER Surgery [facility] [place] [address] Shelby Croft MD [facility]4 [facility] [address] [place] [address] TRANSANAL HEMORRHOIDAL DEARTERIALIZATION 05/06/2025 11:00 AM DOG RACES MANAGER Office Visit [facility] Multispecialty Care - [facility] 3 [facility], Suite [facility] [place] [address] Yulia Tim APRN 3 [facility] [address] [place] [address] Scheduled Procedures Name Priority Associated Diagnoses Date/Ti me HEMORRHOIDECTOMY THD HEMORRHOIDS K64.4 03/01/2025 4:01 PM DOG RACES MANAGER documented as of this encounter Visit Diagnoses Not on filedocumented in this encounter Additional Health Concerns Infection Onset Date Last Indicated Resolved Time COVID-19 Rule Out 01/21/2025 01/21/2025 01/21/2025 11:40 AM CDT Assessment Noted Time PHQ-9 Depression Total Score: 5 09/19/19 24 10:57 AM CDT documented as of this encounter Care Teams Chief Sustainability Officer Relationship Specialty Start Date End Date Lise Posada MD PCP - General FAMILY PRACTICE 12/31/17 documented as of this encounter
--- OUTSIDE RECORDS SUMMARY | 2025-02-18 17:01 | XMS_ITS | Encounter Summary ---
Author Organization [facility] Address On license of [facility] [place] [address] Care Team Providers Care Tai Chi Instructor Name Role Phone Lise Posada MD Primary Care Provider [phone] Encounter Details Date Type Department Care Team (Latest Contact Info) Description 09/24/2023 MyChart Message Enc [facility] Medical Group Multispecialty Care - [facility] 3 [facility], [address] [place] [phone] Jaya Carnes MD 3 [facility] [address] [place] [address] Medication/how can I find out if I [...] Sex Assigned at Female 03/06/2022 10:50 AM DECK CADET Legal Sex Female 11:21 AM DECK CADET Gender Identity Female 03/06/2022 10:50 AM DECK CADET Sexual Orientation Straight 03/06/2022 10 :50 AM DECK CADET 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 encounter Plan of Treatment Upcoming Encounters Date Type Department Care Team (Latest Contact Info) Description 02/24/2025 11:40 AM DECK CADET Office Visit [facility] Family Medicine - [place] [address] [place] [address] Lise Posada MD [address] [place] [address] 03/01/2025 4:01 PM DECK CADET Hospital Encounter [facility] [place] [address] Shelby Croft MD [facility]4 [facility] [address] [place] [address] 03/01/2025 4:01 PM DECK CADET - 03/01/2025 5:17 PM DECK CADET Surgery [facility] [place] [address] Shelby Croft MD [facility]4 [facility] [address] [place] [address] TRANSANAL HEMORRHOIDAL DEARTERIALIZATION 05/06/2025 11:00 AM DECK CADET Office Visit [facility] Multispecialty Care - [facility] 3 [facility], Suite [facility] [address] Yulia Tim APRN 3 [facility] [address] [place] [address] Scheduled Procedures Name Priority Associated Diagnoses Date/Ti me HEMORRHOIDECTOMY THD HEMORRHOIDS K64.4 03/01/2025 4:01 PM DECK CADET documented as of this encounter Visit Diagnoses Not on filedocumented in this encounter Additional Health Concerns Infection Onset Date Last Indicated Resolved Time COVID-19 Rule Out 01/21/2025 01/21/2025 01/21/2025 11:40 AM CDT Assessment Noted Time PHQ-9 Depression Total Score: 5 09/19/19 24 10:57 AM CDT documented as of this encounter Care Teams Tai Chi Instructor Relationship Specialty Start Date End Date Lise Posada MD PCP - General FAMILY PRACTICE 12/31/17 documented as of this encounter
== END 2025-02-18 08:07 | disposition home or self-care (01) ==
LOC: ANHIMG 08:08
PROVIDERS: Visit Provider Nurse Practitioner Family
DX: R10.11 Right upper quadrant pain (principal)
CPT/HCPCS: 78226; A9537

== ENCOUNTER 2025-02-20 13:06 | Outpatient (CLI) | payer OTHER, SELFPAY ==
--- OUTSIDE RECORDS SUMMARY | 2025-02-20 13:08 | XMS_ITS | Encounter Summary ---
Author Organization [facility] Address [address] [place] [address] Care Team Providers Care Automated Manufacturing Instructor Name Role Phone Lise Posada MD Primary Care Provider [phone] Encounter Details Date Type Department Care Team (Late st Contact Info) Description 01/06/2024 MyChart Message Enc [facility] Medical Group Family Medicine [facility] [address] [place] [address] [place] [address] [place] [address] Hepatogology Social History Tobacco Use Types Packs/Day Years Used Date Smoking Tobacco: Never Smokeless Tobacco: Never Alcohol Use Standard Drinks/Week Comments Yes 0 (1 standard drink = 0.6 oz pur e alcohol) occasional PHQ-2 Answer Date Recorded Patient Health Questionnaire-2 Score 0 12/20/2023 Comments No Sex and Gender Information Value Date Recorded Sex Assigned at Female 03/06/2022 10:50 AM SOCIAL SCIENCES CHAIR Legal Sex Female 11:21 AM SOCIAL SCIENCES CHAIR Gender Identity Female 03/06/2022 10:50 AM SOCIAL SCIENCES CHAIR Sexual Orientation Straight 03/06/2022 10 :50 AM SOCIAL SCIENCES CHAIR 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 encounter Plan of Treatment Upcoming Encounters Date Type Department Care Team (Latest Contact Info) Description 02/24/2025 11:40 AM SOCIAL SCIENCES CHAIR Office Visit [facility] Family Medicine - [place] [address] [place] [address] Lise Posada MD [address] [place] [address] 03/01/2025 4:01 PM SOCIAL SCIENCES CHAIR Hospital Encounter [facility] [place] [address] Shelby Croft MD [address] [place] [address] [place] [address] 03/01/2025 4:01 PM SOCIAL SCIENCES CHAIR - 03/01/2025 5:17 PM SOCIAL SCIENCES CHAIR [place] [address] Shelby Croft MD [address] [place] [address] [place] [address] TRANSANAL HEMORRHOIDAL DEARTERIALIZATION 05/06/2025 11:00 AM SOCIAL SCIENCES CHAIR Office Visit [facility] Multispecialty Care - [facility] 3 [facility], [address] [place] [address] Yulia Tim, TORSTEN 3 [facility] [address] [place] [address] Scheduled Procedures Name Priority Associated Diagnoses Date/Ti me HEMORRHOIDECTOMY THD HEMORRHOIDS K64.4 03/01/2025 4:01 PM SOCIAL SCIENCES CHAIR documented as of this encounter Visit Diagnoses Not on filedocumented in this encounter Additional Health Concerns Infection Onset Date Last Indicated Resolved Time COVID-19 Rule Out 01/21/2025 01/21/2025 01/21/2025 11:40 AM CDT Assessment Noted Time PHQ-9 Depression Total Score: 5 09/19/19 24 10:57 AM CDT documented as of this encounter Care Teams Automated Manufacturing Instructor Relationship Specialty Start Date End Date Lise Posada MD PCP - General FAMILY PRACTICE 12/31/17 documented as of this encounter
--- OUTSIDE RECORDS SUMMARY | 2025-02-20 13:08 | XMS_ITS | Encounter Summary ---
Author Organization [facility] Address [facility] [place] [address] Care Team Providers Care Recreation Attendant Supervisor Name Role Phone Lise Posada MD Primary Care Provider [phone] Encounter Details Date Type Department Care Team (Late st Contact Info) Description 12/27/2021 MyChart Message Enc [facility] Medical Group Family Medicine [facility] [address] [place] [address] [place] [address] [place] [address] Gastric surgery Social History Tobacco Use [...] Sex Assigned at Female 03/06/2022 10:50 AM BAR TACKER SEWING MACHINE Legal Sex Female 11:21 AM BAR TACKER SEWING MACHINE Gender Identity Female 03/06/2022 10:50 AM BAR TACKER SEWING MACHINE Sexual Orientation Straight 03/06/2022 10 :50 AM BAR TACKER SEWING MACHINE Occupation Industry Job Start Date Job End [...] (Latest Contact Info) Description 02/24/2025 11:40 AM BAR TACKER SEWING MACHINE Office Visit [facility] Family Medicine - [place] [address] [place] [address] Lise Posada MD [address] [place] [address] 03/01/2025 4:01 PM BAR TACKER SEWING MACHINE Hospital Encounter [facility] [place] [address] Shelby Croft MD [facility]4 [facility] [address] [place] [phone] 03/01/2025 4:01 PM BAR TACKER SEWING MACHINE - 03/01/2025 5:17 PM BAR TACKER SEWING MACHINE Surgery [facility] [place] [address] Shelby Croft MD [facility]4 [facility] [address] [place] [address] TRANSANAL HEMORRHOIDAL DEARTERIALIZATION 05/06/2025 11:00 AM BAR TACKER SEWING MACHINE Office Visit [facility] Multispecialty Care - [facility] 3 [facility], [address] [place] [phone] Yulia Tim APRN 3 [facility] [address] [place] [address] Scheduled Procedures Name Priority Associated Diagnoses Date/Ti me HEMORRHOIDECTOMY THD HEMORRHOIDS K64.4 03/01/2025 4:01 PM BAR TACKER SEWING MACHINE documented as of this encounter Visit Diagnoses Not on filedocumented in this encounter Additional Health Concerns Infection Onset Date Last Indicated Resolved Time COVID-19 Rule Out 01/21/2025 01/21/2025 01/21/2025 11:40 AM CDT Assessment Noted Time PHQ-9 Depression Total Score: 0 03/16/20 21 1:54 PM BAR TACKER SEWING MACHINE documented as of this encounter Care Teams Recreation Attendant Supervisor Relationship Specialty Start Date End Date Lise Posada MD PCP - General FAMILY PRACTICE 12/31/17 documented as of this encounter
--- OUTSIDE RECORDS SUMMARY | 2025-02-20 13:08 | XMS_ITS | Encounter Summary ---
Author Organization [facility] Address [address] [place] [address] Care Team Providers Care Torpedo Shooter Name Role Phone Lise Posada MD Primary Care Provider [phone] Encounter Details Date Type Department Care Team (Late st Contact Info) Description 05/07/2023 MyCeBooks in Motiont Message Enc [facility] Medical Group Family Medicine [facility] [address] [place] [phone] [place] [address] [place] [address] Test results Social History Tobacco Use Types Packs/Day Years Used Date Smoking Tobacco: Never Smokeless Tobacco: Never Alcohol Use Standard Drinks/Week Comments Yes 0 (1 standard drink = 0.6 oz pur e alcohol) occasional PHQ-2 Answer Date Recorded Patient Health Questionnaire-2 Score 1 05/08/2023 Comments No Sex and Gender Information Value Date Recorded Sex Assigned at Female 03/06/2022 10:50 AM ACCOUNT DEVELOPMENT EXECUTIVE Legal Sex Female 11:21 AM ACCOUNT DEVELOPMENT EXECUTIVE Gender Identity Female 03/06/2022 10:50 AM ACCOUNT DEVELOPMENT EXECUTIVE Sexual Orientation Straight 03/06/2022 10 :50 AM ACCOUNT DEVELOPMENT EXECUTIVE Occupation Industry Job Start Date Job End [...] other people? Somewhat difficult 05/08/2023 2:07 PM ACCOUNT DEVELOPMENT EXECUTIVE Bambi Yost MA Active documented as of this encounter Plan of Treatment Upcoming Encounters Date Type Department Care Team (Latest Contact Info) Description 02/24/2025 11:40 AM ACCOUNT DEVELOPMENT EXECUTIVE Office Visit [facility] Family Medicine - [place] [address] [place] [phone] Lise Posada MD [address] [place] [address] 03/01/2025 4:01 PM ACCOUNT DEVELOPMENT EXECUTIVE Hospital Encounter [facility] [place] [address] Shelby Croft MD [address] [place] [address] [place] [address] 03/01/2025 4:01 PM ACCOUNT DEVELOPMENT EXECUTIVE - 03/01/2025 5:17 PM ACCOUNT DEVELOPMENT EXECUTIVE Surgery [facility] [place] [address] Shelby rCoft MD [address] [address] [place] [address] TRANSANAL HEMORRHOIDAL DEARTERIALIZATION 05/06/2025 11:00 AM ACCOUNT DEVELOPMENT EXECUTIVE Office Visit [facility] Multispecialty Care - [facility] 3 [facility], [address] [place] [phone] Yulia Tim APRN 3 [facility] [address] [place] [address] Scheduled Procedures Name Priority Associated Diagnoses Date/Ti me HEMORRHOIDECTOMY THD HEMORRHOIDS K64.4 03/01/2025 4:01 PM ACCOUNT DEVELOPMENT EXECUTIVE documented as of this encounter Visit Diagnoses Not on filedocumented in this encounter Additional Health Concerns Infection Onset Date Last Indicated Resolved Time COVID-19 Rule Out 01/21/2025 01/21/2025 01/21/2025 11:40 AM CDT Assessment Noted Time PHQ-9 Depression Total Score: 0 03/16/20 21 1:54 PM ACCOUNT DEVELOPMENT EXECUTIVE documented as of this encounter Care Teams Torpedo Shooter Relationship Specialty Start Date End Date Lise Posada MD PCP - General FAMILY PRACTICE 12/31/17 documented as of this encounter
--- OUTSIDE RECORDS SUMMARY | 2025-02-20 13:08 | XMS_ITS | Encounter Summary ---
Author Organization [facility] Address [facility] [place] [address] Care Team Providers Care Tennis Court Attendant Name Role Phone Lise Posada MD Primary Care Provider [phone] Encounter Details Date Type Department Care Team (Latest Contact Info) Description 12/04/2023 MyChart Message Enc [facility] Medical Group Multispecialty Care - 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 encounter Plan of Treatment Upcoming Encounters Date Type Department Care Team (Latest Contact Info) Description 02/24/2025 11:40 AM REHAB DEPARTMENT MANAGER Office Visit [facility] Family Medicine - [place] [address] [place] [address] Lise Posada MD [address] [place] [address] 03/01/2025 4:01 PM REHAB DEPARTMENT MANAGER Hospital Encounter [facility] [place] [address] Shelby Croft MD [address] [facility] [address] [place] [address] 03/01/2025 4:01 PM REHAB DEPARTMENT MANAGER - 03/01/2025 5:17 PM REHAB DEPARTMENT MANAGER Surgery [facility] [place] [address] Shelby Croft MD [facility]4 [facility] [address] [place] [address] TRANSANAL HEMORRHOIDAL DEARTERIALIZATION 05/06/2025 11:00 AM REHAB DEPARTMENT MANAGER Office Visit [facility] Multispecialty Care - [facility] 3 [facility], Suite [facility] [place] [address] Yulia Tim APRN 3 [facility] [address] [place] [address] Scheduled Procedures Name Priority Associated Diagnoses Date/Ti me HEMORRHOIDECTOMY THD HEMORRHOIDS K64.4 03/01/2025 4:01 PM REHAB DEPARTMENT MANAGER documented as of this encounter Visit Diagnoses Not on filedocumented in this encounter Additional Health Concerns Infection Onset Date Last Indicated Resolved Time COVID-19 Rule Out 01/21/2025 01/21/2025 01/21/2025 11:40 AM CDT Assessment Noted Time PHQ-9 Depression Total Score: 5 09/19/19 24 10:57 AM CDT documented as of this encounter Care Teams Tennis Court Attendant Relationship Specialty Start Date End Date Lise Posada MD PCP - General FAMILY PRACTICE 12/31/17 documented as of this encounter
--- OUTSIDE RECORDS SUMMARY | 2025-02-20 13:08 | XMS_ITS | Clinical Summary ---
Author Organization [facility] Address Critical access hospital[address] [place] [address] Care Team Providers Care Dermatology Nurse Practitioner Name Role Phone Lise Posada MD Primary Care Provider [phone] Allergies No known active allergies Medications linaCLOtide (LINZESS) 72 MCG capsuleIndicati ons:Irritable bowel syndrome with constipation Take 1 capsule (72 mcg total) by mouth daily. 90 capsule 3 04/07/20 24 025 Active lidocaine (LIDO VEIE) 4 % patch Place 1 patch onto [...] - 02/03/2025 11:59 PM CDT Hospital Encounter [facility] [place] [address] Lise Posada MD Discharge Disposition: Home or Self Care (Routine Discharge) 02/03/2025 Travel 01/30/2025 2:21 PM CDT - 01/30/2025 11:59 PM CDT Hospital Encounter [place] [address] Lise Posada MD Discharge Disposition: Home or Self Care (Routine Discharge) 01/30/2025 Travel 01/22/2025 10:20 AM CDT Office Visit [address] [address] Lise Posada MD Hypertension 01/22/2025 Results Follow-Up [address] [address] Lise Posada MD IRON SAT PANEL (IRON,IBC,%SAT), CBC W/DIFF AUTOMATED, COMPREHENSIVE METABOLIC PANEL, PRO-BRAIN NATRIURETIC PEPTIDE 01/22/2025 Travel 01/21/2025 11:08 AM CDT - 01/21/2025 12:19 PM CDT Emergency [facility] [place] [address] Armando Bagley APRN Cough; Sore Throat Discharge Disposition: Home or Self Care (Routine Discharge) 01/21/2025 Scan HEALTH INFO SRVCS Scanned, Doc [facility] 01/21/2025 Travel 01/16/2025 11:22 AM CDT - 01/16/2025 11:59 PM CDT Hospital Encounter [place] [address] Lise Posada MD Discharge Disposition: Home or Self Care (Routine Discharge) 01/16/2025 Travel 01/14/2025 8:40 AM CDT Office Visit [address] [address] Lise Posada MD Edema (Both ankles and lower legs were swollen, the swelling lasted for 1 week and just went down yesterday) 01/14/2025 Travel 01/12/2025 Scan HEALTH INFO SRVCS Scanned, Doc [facility] 01/11/2025 MyChart Message Enc [address] [address] Lise Posada MD Swollen legs and ankles 01/11/2025 Travel 12/30/2024 11:20 AM CDT Telemedicine [address] [address] Lise Posada MD COVID-19 (Symptoms started a couple of weeks ago with cough and [place], itchy throat, a couple of days ago, worse; went to on Saturday12/28/2024, positive for COVID) 12/30/2024 Travel 12/10/2024 9:40 AM CDT Office Visit [address] [phone] Lise Posada MD Hypertension; Neck Pain (Going to PT - completed 12 sessions and to follow with PCP, patient reports has improved some but still experiencing pain; intermittent, local, no pain currently) 12/09/2024 5:10 PM CDT - 12/09/2024 11:59 PM CDT Hospital Encounter [facility] [place] [address] Lise Posada MD Delong, Brieanna L, PT Back Pain; Leg Pain Discharge Disposition: Home or Self Care (Routine Discharge) 12/09/2024 Travel 12/04/2024 2:15 PM CDT - 12/04/2024 11:59 PM CDT Hospital Encounter [facility] [place] [address] Lise Posada MD Dietz, Courtnie K, RESIDENT ASSOCIATE Discharge Disposition: Home or Self Care (Routine Discharge) 12/04/2024 Travel 12/02/2024 2:11 PM CDT - 12/02/2024 11:59 PM CDT Hospital Encounter [facility] [place] [address] Lise Posada MD Lewis, Molly A, RESIDENT ASSOCIATE Discharge Disposition: Home or Self Care (Routine Discharge) 12/02/2024 Travel 11/27/2024 3:45 PM CDT - 11/27/2024 11:59 PM CDT Hospital Encounter [facility] [place]patient [place] [address] Lise Posada MD Kohnen, Haley M, RESIDENT ASSOCIATE Discharge Disposition: Home or Self Care (Routine Discharge) 11/27/2024 Travel 11/23/2024 4:15 PM CDT - 11/23/2024 11:59 PM CDT Hospital Encounter [facility] [place]patient [place] [address] Karma Beckman, DPT Discharge Disposition: Home or Self Care (Routine Discharge) 11/23/2024 Travel 11/23/2024 Telephone [facility] [place]patient [place] [address] Tere Landa, PT Called To Cancel Office Appt. 11/20/2024 Telephone [facility] [place] [place] [address] Rachelle Perez, RESIDENT ASSOCIATE No Show 11/20/2024 Travel from Last 3 Months Immunizations Immunization [...] Sex Assigned at Female 03/06/2022 10:50 AM FUR GLAZER Legal Sex Female 11:21 AM FUR GLAZER Gender Identity Female 03/06/2022 10:50 AM FUR GLAZER Sexual Orientation Straight 03/06/2022 10 :50 AM FUR GLAZER Occupation Industry Job Start Date Job End [...] (Latest Contact Info) Description 02/24/2025 11:40 AM FUR GLAZER Office Visit [facility] Medical Group [facility] Medicine [address] [address] Lise Posada MD [address] [place] [address] 03/01/2025 4:01 PM FUR GLAZER Hospital Encounter [facility] [place] [address] Shelby Croft MD 1414 [facility] [address] [place] [address] 03/01/2025 4:01 PM FUR GLAZER - 03/01/2025 5:17 PM FUR GLAZER Surgery [facility] [place] [address] Shelby Croft MD [address] [facility] [address] [place] [address] TRANSANAL HEMORRHOIDAL DEARTERIALIZATION 05/06/2025 11:00 AM FUR GLAZER Office Visit [facility] Medical Group Multispecialty Care - [facility] 3 [facility], [address] [place] [address] Yulia Tim, T[place]ST[place] 3 [facility] [address] [place] [address] Scheduled Procedures Name Priority Associated Diagnoses Date/Ti me HEMORRHOIDECTOMY THD HEMORRHOIDS K64.4 03/01/2025 4:01 PM FUR GLAZER Health Maintenance Due Date Last Done Comments Hepatitis A Vaccines (1 of 2 - Risk 2-dose series) 07/29/1994 Hepatitis B Vaccines (1 of 3 - 19+ 3-dose series) 07/29/1994 Annual Physical 05/08/2024 05/08/2023 COVID-19 Vaccine ( - 2024- season) 2024 11/08/2020, 10/18/2020 Influenza Adult (#1) 2025 03/02/2021, 03/04/20 20 Mammogram Screening 07/31/2026 07/31/2024, 05/16/2023, 08/08/2017, Additional history exists DTaP, Tdap and Td Vaccines (3 - Td or Tdap) 10/23/2027 10/22/2017, 10/22/2017 Colorectal Cancer Screening Colonoscopy (10 Years) 07/13/2031 07/12/2021, 03/30/2021, 03/30/2021, Additional history exists Hepatitis C Completed 11/27/2023, 06/14, 06/27/2016, Additional history exists PHQ-2 (Physician [place]) Completed 01/22/2025 Meningococcal B Vaccine Aged Out [...] - 170.0 MCG/DL 02/03/2025 1:45 PM CDT [facility] IRON BINDING CAPACITY 344 250 - 450 MCG/DL 02/03/2025 1:45 PM CDT [facility] IRON SATURATION 13(L) 20 - 55 % 1:45 PM CDT [facility] 02/03/2025 1:06 PM CDT Lise Posada MD LABORATORY Final Result [facility] [address] [place] [address], [place] [phone] * (ABNORMAL) COMPREHENSIVE METABOLIC PANEL (02/03/2025 1:06 PM CDT) Only the most recent of2 resultswithin the time period is included. [facility] GLUCOSE 99 70 - 99 MG/DL 02/03/2025 1:45 PM CDT [facility] BUN 7 7 - 18 MG/DL 02/03/2025 1:45 PM CDT [facility] CREATININE S/P/B 0.58 0.55 - 1.02 MG/DL 02/03/2025 1:45 PM CDT [facility] SODIUM S/P/B 142 136 - 145 MMOL/L 02/03/2025 1:45 PM CDT [facility] POTASSIUM S/P/B 4.0 3.5 - 5.1 MMOL/L 02/03/2025 1:45 PM CDT [facility] CHLORIDE S/P/B 111 97 - 115 MMOL/L 02/03/2025 1:45 PM CDT [facility] CO2 29.0 21 - 32 MMOL/L 02/03/2025 1:45 PM CDT [facility] CALCIUM S/P/B 9.6 8.5 - 10.1 MG/DL 02/03/2025 1:45 PM CDT [facility] BILIRUBIN TOTAL S/P/B 0.3 0.2 - 1.2 MG/DL 02/03/2025 1:45 PM CDT [facility] Comment: THIS ASSAY IS NOT RECOMMENDED FOR PATIENTS UNDERGOING TREATMENT WITH ELTROMBOPAG DUE TO THE POTENTIAL FOR FALSELY ELEVATED RESULTS. TOTAL PROTEIN S/P/B 7.4 6.4 - 8.2 G/DL 02/03/2025 1:45 PM CDT [facility] ALBUMIN S/P/B 3.8 3.4 - 5.0 G/DL 02/03/2025 1:45 PM CDT [facility] AST 12(L) 15 - 37 U/L 02/03/2025 1:45 PM CDT [facility] ALT 28 14 - 55 U/L 02/03/2025 1:45 PM CDT [facility] ALKALINE PHOSPHATASE S/P/B 72 50 - 136 U/L 02/03/2025 1:45 PM CDT [facility] ANION GAP 2.0 2 - 10 MMOL/L 02/03/2025 1:45 PM CDT [facility] BUN CREATININE RATIO 12.1 6 - 26 02/03/2025 1:45 PM CDT [facility] A/G RATIO 1.1 1.0 - 2.0 RATIO 02/03/2025 1:45 PM CDT [facility] GFR ESTIMATE >90 >90 ML/MIN/1.7 3 M2 02/03/2025 1:45 PM CDT [facility] Comment: NOTE: eGFR is not calculated for patients <18 years of age or gender unknown. This is an estimated GFR calculation using the new CKD EPI creatinine equation without race and so does not require a correction factor for race. This estimated GFR should not be used for calculating drug doses. 02/03/2025 1:06 PM CDT Lise Posada MD LABORATORY Final Result [facility] [address] [place] [address], [place] [phone] * (ABNORMAL) LIPID PANEL (02/03/2025 1:06 PM CDT) CHOLESTEROL 209(H) <200 MG/DL 02/03/2025 1:45 PM CDT [facility] TRIGLYCERIDES 138 <150 MG/DL 02/03/2025 1:45 PM CDT [facility] HDL 58 >40.0 MG/DL 02/03/2025 1:45 PM CDT [facility] LDL (CALCULATED) 123(H) <100 MG/DL 02/03/2025 1:45 PM CDT [facility] Comment:CALCULATED USING THE FRIEDEWALD EQUATION NON HDL CHOLESTEROL 151(H) <130 MG/DL 02/03/2025 1:45 PM CDT [facility] CHOL/HDL RATIO 3.6 0.0 - 4.5 02/03/2025 1:45 PM CDT [facility] VLDL CALCULATION 28 5 - 55 MG/DL 02/03/2025 1:45 PM CDT [facility] LIPID INTERPRETATION 02/03/2025 1:45 PM CDT [facility] Comment: NIH CONCENSUS REPORT RECOMMENDATIONS: ADULT CHILD LOW RISK: CHOLESTEROL <200 <170 TRIGLYCERIDE <150 --- HDL >=60 --- LDL <100 <110 BORDERLINE: CHOLESTEROL 200-239 170-199 TRIGLYCERIDE 150-199 --- HDL 40-59 --- LDL 100-159 110-129 HIGH RISK: CHOLESTEROL >=240 >=200 TRIGLYCERIDE >=200 --- HDL <40 --- LDL >=160 >=130 02/03/2025 1:06 PM CDT Lise Posada MD LABORATORY Final Result [facility] [address] [place] [address], [place] [phone] * (ABNORMAL) CBC W/DIFF AUTOMATED (02/03/2025 1:06 PM CDT) Only the most recent of2 resultswithin the time period is included. WBC 5.83 4.5 - 11.0 x10'3/uL 02/03/2025 1:19 PM CDT [facility] RBC 4.71 4.20 - 5.40 x10'6/uL 02/03/2025 1:19 PM CDT [facility] HGB 12.3 12.0 - 16.0 G/DL 02/03/2025 1:19 PM CDT [facility] HCT 39.0 38.0 - 48.0 % 02/03/2025 1:19 PM CDT [facility] MCV 82.8 81.0 - 99.0 FL 02/03/2025 1:19 PM CDT [facility] MCH 26.1(L) 27.0 - 31.0 PG 02/03/2025 1:19 PM CDT [facility] MCHC 31.5(L) 32.0 - 36.0 G/DL 02/03/2025 1:19 PM CDT [facility] RDW 16.2(H) 11.5 - 14.5 % 02/03/2025 1:19 PM CDT [facility] PLT 233 130 - 400 x10'3/uL 02/03/2025 1:19 PM CDT [facility] MPV 11.0 9.3 - 12.2 FL 02/03/2025 1:19 PM CDT [facility] DIFFERENTIAL TYPE AUTOMATED DIFFERENTIAL 02/03/2025 1:19 PM CDT [facility] NEUTROPHILS % 44.3 % 02/03/2025 1:19 PM CDT [facility] LYMPHOCYTES % 46.1 % 02/03/2025 1:19 PM CDT [facility] MONOCYTES % 7.0 % 02/03/2025 1:19 PM CDT [facility] EOSINOPHILS 1.4 % 02/03/2025 1:19 PM CDT [facility] BASOPHILS 1.0 % 02/03/2025 1:19 PM CDT [facility] IMMATURE GRANS % 0.2 % 02/04/20 1:19 PM CDT [facility] ABS. NEUTROPHILS 2.58 1.80 - 7.70 x10'3/uL 02/03/2025 1:19 PM CDT [facility] ABS. LYMPHOCYTES 2.69 1.00 - 4.80 x10'3/uL 02/03/2025 1:19 PM CDT [facility] ABS. MONOCYTES 0.41 0.24 - 0.86 x10'3/uL 02/03/2025 1:19 PM CDT [facility] ABS. EOSINOPHILS 0.08 0.04 - 0.36 x10'3/uL 02/03/2025 1:19 PM CDT [facility] ABS. BASOPHILS 0.06 0.01 - 0.08 x10'3/uL 02/03/2025 1:19 PM CDT [facility] ABS. IMMATURE GRANULOCYTES 0.01 0.00 - 0.49 x10'3/uL 02/03/2025 1:19 PM CDT [facility] 02/03/2025 1:06 PM CDT us Lise Posada MD LABORATORY Final Result [facility] [address] [place] [address], [place] [phone] * MRI CERV SPINE WO CON (01/30/2025 [...] 10:17 AM Narrative 02/09/2025 10:21 AM CDT [place] [address] EXAMINATION: MRI of the cervical spine without [...] Procedure Note Armando Rivera MD - 02/09/2025 [facility] 1 [place], [place] [address] EXAMINATION: MRI of the cervical spine without [...] By: Armando Rivera MD, 02/09/2025 10:17 AM us Lise Posada MD MRI Final Result * CORONAVIRUS (COVID 19) (01/21/2025 11:19 AM CDT) CORONAVIRUS SARS COV 2 RNA NEGATIVE NEGATIVE 01/21/2025 11:40 AM CDT [facility] Comment: NEGATIVE RESULTS DO NOT RULE [...] SPECIMEN TYPE NASAL 01/21/2025 11:21 AM CDT [facility] NASAL STRUCTURE / Unknown 01/21/2025 11:19 AM CDT Armando Bagley APRN MICROBIOLOGY - GENERAL ORDER MARAL Final Result Performing Organization Address City/[facility]/ZIP Co de Phone Number [facility] [address] [place] [address], [place] [phone] * (ABNORMAL) STREP A RAPID (01/21/2025 11:19 AM CDT) Pathologist [facility] SPECIMEN TYPE THROAT 01/21/2025 11:21 AM CDT [facility] RAPID STREP TEST POSITIVE(A) NEGATIVE 01/21/2025 11:40 AM CDT [facility] STRUCTURE OF ANTERIOR REGION OF NECK / Unknown 01/21/2025 11:19 AM CDT Armando Bagley APRN MICROBIOLOGY - GENERAL ORDER MARAL Final Result [facility] [address] [place] [address], [place] [phone] * PRO-BRAIN NATRIURETIC PEPTIDE (01/16/2025 11:25 AM CDT) PRO-B TYPE NATRIURETIC PEPTIDE 50 <125 PG/ML 01/16/2025 12:43 PM CDT [facility] Comment: CUT POINTS ESTABLISHED BY [...] CDT Lise Posada MD LABORATORY Final Result [facility] [address] [place] [address], * MG SCREENING W NARCISO ANDI DIGI [...] 4:54 PM Narrative 07/31/2024 4:57 PM CDT [facility] [place] [address] EXAMINATION: MG SCREENING W NARCISO ANDI DIGI [...] VE NON-REACTI VE 11/27/2023 6:32 PM CDT [facility] HEP B CORE IGM NON-REACTI VE NON-REACTI VE 11/27/2023 2:27 PM CDT [facility] HAV IGM NON-REACTI VE NON-REACTI VE 11/27/2023 2:27 PM CDT [facility] HEPATITIS C AB NON-REACTI VE NON-REACTI VE 11/27/2023 2:27 PM CDT [facility] 11/27/2023 12:0 2 PM CDT Lise Posada MD LABORATORY Final Result [facility] [address] [place] [address], [place] [phone] * COLONOSCOPY/EGD GENERIC (07/12/2021) 07/12/2021 Narrative 07/12/2021 Ordered by an unspecified provider. us Documents Scanned SCANNING Final Result from Last 3 Months or Most Recently Relevant to Health Maintenance Insurance [place] [employer] Care Teams Dermatology Nurse Practitioner Relationship Specialty Start Date End Date Lise Posada MD PCP - General FAMILY PRACTICE 12/31/17
--- OUTSIDE RECORDS SUMMARY | 2025-02-20 13:08 | XMS_ITS | Encounter Summary ---
Author Organization [facility] Address [address] [place] [address] Care Team Providers Care Die Filer Name Role Phone Lise Posada MD Primary Care Provider [phone] Encounter Details Date Type Department Care Team (Late st Contact Info) Description 06/08/2024 MyChart Message Enc [facility] Medical Group Family Medicine [facility] [address] [place] [phone] [place] [address] [place] [address] pain medication Social History Tobacco Use Types Packs/Day Years Used Date Smoking Tobacco: Never Smokeless Tobacco: Never Alcohol Use Standard Drinks/Week Comments Not Currently 0 (1 standard drink = 0.6 oz pur e alcohol) occasional PHQ-2 Answer Date Recorded Patient Health Questionnaire-2 Score 1 04/06/2024 Comments No Sex and Gender Information Value Date Recorded Sex Assigned at Female 03/06/2022 10:50 AM CONSULTANT LUXURY AND AUTO. VICE PRESIDENT [employer] (EX ) Legal Sex Female 11:21 AM CONSULTANT LUXURY AND AUTO. VICE PRESIDENT [employer] (EX ) Gender Identity Female 03/06/2022 10:50 AM CONSULTANT LUXURY AND AUTO. VICE PRESIDENT [employer] (EX ) Sexual Orientation Straight 03/06/2022 10 :50 AM CONSULTANT LUXURY AND AUTO. 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 VICE PRESIDENT [employer] (EX ) Office Visit [facility] [place] [address] [place] [address] Lise Posada MD [address] [place] [address] 03/01/2025 4:01 PM CONSULTANT LUXURY AND AUTO. VICE PRESIDENT [employer] (EX ) Hospital Encounter [facility] [address] Shelby Croft MD [address] [place] [address] [place] [address] 03/01/2025 4:01 PM CONSULTANT LUXURY AND AUTO. VICE PRESIDENT [employer] (EX ) - 03/01/2025 5:17 PM CONSULTANT LUXURY AND AUTO. VICE PRESIDENT [employer] (EX ) [place] [address] Shelby Croft MD [address] [place] [address] [place] [address] TRANSANAL HEMORRHOIDAL DEARTERIALIZATION 05/06/2025 11:00 AM CONSULTANT LUXURY AND AUTO. VICE PRESIDENT [employer] (EX ) Office Visit [facility] 3 [facility], [address] [place] [phone] Yulia Tim, TORSTEN 3 [facility] [address] [place] [address] Scheduled Procedures Name Priority Associated Diagnoses Date/Ti me HEMORRHOIDECTOMY THD HEMORRHOIDS K64.4 03/01/2025 4:01 PM CONSULTANT LUXURY AND AUTO. VICE PRESIDENT [employer] (EX ) documented as of this encounter Visit Diagnoses Not on filedocumented in this encounter Additional Health Concerns Infection Onset Date Last Indicated Resolved Time COVID-19 Rule Out 01/21/2025 01/21/2025 01/21/2025 11:40 AM CDT Assessment Noted Time PHQ-9 Depression Total Score: 5 09/19/19 24 10:57 AM CDT documented as of this encounter Care Teams Die Filer Relationship Specialty Start Date End Date Lise Posada MD PCP - General FAMILY PRACTICE 12/31/17 documented as of this encounter
--- OUTSIDE RECORDS SUMMARY | 2025-02-20 13:08 | XMS_ITS | Encounter Summary ---
Author Organization [facility] Address [address] [place] [address] Care Team Providers Care Bolting Machine Operator Name Role Phone Lise Posada MD Primary Care Provider [phone] Encounter Details Date Type Department Care Team (Late st Contact Info) Description 06/24/2024 MyChart Message Enc [facility] Medical Group Family Medicine [facility] [address] [place] [phone] [place] [address] [place] [address] muscles relaxer Social History Tobacco Use Types Packs/Day Years Used Date Smoking Tobacco: Never Smokeless Tobacco: Never Alcohol Use Standard Drinks/Week Comments Not Currently 0 (1 standard drink = 0.6 oz pur e alcohol) occasional PHQ-2 Answer Date Recorded Patient Health Questionnaire-2 Score 1 04/06/2024 Comments No Sex and Gender Information Value Date Recorded Sex Assigned at Female 03/06/2022 10:50 AM PICKLING MACHINE OPERATOR Legal Sex Female 11:21 AM PICKLING MACHINE OPERATOR Gender Identity Female 03/06/2022 10:50 AM PICKLING MACHINE OPERATOR Sexual Orientation Straight 03/06/2022 10 :50 AM PICKLING MACHINE OPERATOR 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 encounter Plan of Treatment Upcoming Encounters Date Type Department Care Team (Latest Contact Info) Description 02/24/2025 11:40 AM PICKLING MACHINE OPERATOR Office Visit [facility] [place] [address] [place] [address] Lise Posada MD [address] [place] [address] 03/01/2025 4:01 PM PICKLING MACHINE OPERATOR Hospital Encounter [facility] [place] [address] Shelby Croft MD [address] [place] [address] [place] [address] 03/01/2025 4:01 PM PICKLING MACHINE OPERATOR - 03/01/2025 5:17 PM PICKLING MACHINE OPERATOR [place] [address] Shelby Croft MD [address] [place] [address] [place] [address] TRANSANAL HEMORRHOIDAL DEARTERIALIZATION 05/06/2025 11:00 AM PICKLING MACHINE OPERATOR Office Visit [facility] - [facility] 3 [facility], [address] [place] [address] Yulia Tim APRN 3 [facility] [address] [place] [address] Scheduled Procedures Name Priority Associated Diagnoses Date/Ti me HEMORRHOIDECTOMY THD HEMORRHOIDS K64.4 03/01/2025 4:01 PM PICKLING MACHINE OPERATOR documented as of this encounter Visit Diagnoses Not on filedocumented in this encounter Additional Health Concerns Infection Onset Date Last Indicated Resolved Time COVID-19 Rule Out 01/21/2025 01/21/2025 01/21/2025 11:40 AM CDT Assessment Noted Time PHQ-9 Depression Total Score: 5 09/19/19 24 10:57 AM CDT documented as of this encounter Care Teams Bolting Machine Operator Relationship Specialty Start Date End Date Lise Posada MD PCP - General FAMILY PRACTICE 12/31/17 documented as of this encounter
--- OUTSIDE RECORDS SUMMARY | 2025-02-20 13:08 | XMS_ITS | Encounter Summary ---
Author Organization [facility] Address [facility] [place] [address] Care Team Providers Care Refrigerator Repair Technician Name Role Phone Lise Posada MD Primary Care Provider [phone] Encounter Details Date Type Department Care Team (Late st Contact Info) Description 01/05/2024 MyChart Message Enc [facility] Medical Group Family Medicine [facility] [address] [place] [phone] Lise Posada MD [address] [place] [address] Medication Social History Tobacco Use Types Packs/Day Years Used Date Smoking Tobacco: Never Smokeless Tobacco: Never Alcohol Use Standard Drinks/Week Comments Yes 0 (1 standard drink = 0.6 oz pur e alcohol) occasional PHQ-2 Answer Date Recorded Patient Health Questionnaire-2 Score 0 12/20/2023 Comments No Sex and Gender Information Value Date Recorded Sex Assigned at Female 03/06/2022 10:50 AM MANUFACTURING INDUSTRIAL ENGINEER Legal Sex Female 11:21 AM MANUFACTURING INDUSTRIAL ENGINEER Gender Identity Female 03/06/2022 10:50 AM MANUFACTURING INDUSTRIAL ENGINEER Sexual Orientation Straight 03/06/2022 10 :50 AM MANUFACTURING INDUSTRIAL ENGINEER 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 encounter Plan of Treatment Upcoming Encounters Date Type Department Care Team (Latest Contact Info) Description 02/24/2025 11:40 AM MANUFACTURING INDUSTRIAL ENGINEER Office Visit [facility] - [place] [address] [place] [phone] Lise Posada MD [address] [place] [address] 03/01/2025 4:01 PM MANUFACTURING INDUSTRIAL ENGINEER Hospital Encounter [facility] [address] Shelby Croft MD [address] [place] [address] [place] [address] 03/01/2025 4:01 PM MANUFACTURING INDUSTRIAL ENGINEER - 03/01/2025 5:17 PM MANUFACTURING INDUSTRIAL ENGINEER [place] [address] Shelby Croft MD [facility]4 [facility] [address] [place] [address] TRANSANAL HEMORRHOIDAL DEARTERIALIZATION 05/06/2025 11:00 AM MANUFACTURING INDUSTRIAL ENGINEER Office Visit [facility] Mult[facility]pecialty [facility] - [facility] 3 [facility], [address] [place] [address] Yulia Tim, TORSTEN 3 [facility] [address] [place] [address] Scheduled Procedures Name Priority Associated Diagnoses Date/Ti me HEMORRHOIDECTOMY THD HEMORRHOIDS K64.4 03/01/2025 4:01 PM MANUFACTURING INDUSTRIAL ENGINEER documented as of this encounter Visit Diagnoses Not on filedocumented in this encounter Additional Health Concerns Infection Onset Date Last Indicated Resolved Time COVID-19 Rule Out 01/21/2025 01/21/2025 01/21/2025 11:40 AM CDT Assessment Noted Time PHQ-9 Depression Total Score: 5 09/19/19 24 10:57 AM CDT documented as of this encounter Care Teams Refrigerator Repair Technician Relationship Specialty Start Date End Date Lise Posada MD PCP - General FAMILY PRACTICE 12/31/17 documented as of this encounter
--- OUTSIDE RECORDS SUMMARY | 2025-02-20 13:08 | XMS_ITS | Encounter Summary ---
Author Organization [facility] Address [facility] [place] [address] Care Team Providers Care Periodontal Assistant Name Role Phone Lise Posada MD Primary Care Provider [phone] Encounter Details Date Type Department Care Team (Late st Contact Info) Description 01/08/2022 MyChart Message Enc [facility] Medical Group Family Medicine [facility] [address] [place] [address] [place] [address] [place] [address] lock toes on both feet Social [...] Sex Assigned at Female 03/06/2022 10:50 AM DIRECTOR TALENT ACQUISITION Legal Sex Female 11:21 AM DIRECTOR TALENT ACQUISITION Gender Identity Female 03/06/2022 10:50 AM DIRECTOR TALENT ACQUISITION Sexual Orientation Straight 03/06/2022 10 :50 AM DIRECTOR TALENT ACQUISITION Occupation Industry Job Start Date Job End [...] (Latest Contact Info) Description 02/24/2025 11:40 AM DIRECTOR TALENT ACQUISITION Office Visit [facility] - [place] [address] [place] [address] Lise Posada MD [address] [place] [address] 03/01/2025 4:01 PM DIRECTOR TALENT ACQUISITION Hospital Encounter [facility] [place] [address] Shelby Croft MD [facility]4 [facility] [address] [place] [phone] 03/01/2025 4:01 PM DIRECTOR TALENT ACQUISITION - 03/01/2025 5:17 PM DIRECTOR TALENT ACQUISITION Surgery [facility] [place] [address] Shelby Croft MD [address] [facility] [address] [place] [address] TRANSANAL HEMORRHOIDAL DEARTERIALIZATION 05/06/2025 11:00 AM DIRECTOR TALENT ACQUISITION Office Visit [facility]ty [facility] - [facility] 3 [facility], [address] [place] [phone] Yulia Tim APRN 3 [facility] [address] [place] [address] Scheduled Procedures Name Priority Associated Diagnoses Date/Ti me HEMORRHOIDECTOMY THD HEMORRHOIDS K64.4 03/01/2025 4:01 PM DIRECTOR TALENT ACQUISITION documented as of this encounter Visit Diagnoses Not on filedocumented in this encounter Additional Health Concerns Infection Onset Date Last Indicated Resolved Time COVID-19 Rule Out 01/21/2025 01/21/2025 01/21/2025 11:40 AM CDT Assessment Noted Time PHQ-9 Depression Total Score: 0 03/16/20 21 1:54 PM DIRECTOR TALENT ACQUISITION documented as of this encounter Care Teams Periodontal Assistant Relationship Specialty Start Date End Date Lise Posada MD PCP - General FAMILY PRACTICE 12/31/17 documented as of this encounter
--- OUTSIDE RECORDS SUMMARY | 2025-02-20 13:08 | XMS_ITS | Encounter Summary ---
Author Organization [facility] Address [facility]6 [place] [address] Care Team Providers Care Assembler Garment Form Name Role Phone Lise Posada MD Primary Care Provider [phone] Encounter Details Date Type Department Care Team (Late st Contact Info) Description 07/26/2022 MyChart Message Enc [facility] Medical Group Family Medicine [facility] [address] [place] [phone] Lise Posada MD [address] [place] [address] Medical question Social History Tobacco Use Types Packs/Day Years Used Date Smoking Tobacco: Never Smokeless Tobacco: Never Alcohol Use Standard Drinks/Week Comments Yes 0 (1 standard drink = 0.6 oz pur e alcohol) occasional PHQ-2 Answer Date Recorded Patient Health Questionnaire-2 Score 2 05/30/2022 Comments No Sex and Gender Information Value Date Recorded Sex Assigned at Female 03/06/2022 10:50 AM OFFICE DIRECTOR Legal Sex Female 11:21 AM OFFICE DIRECTOR Gender Identity Female 03/06/2022 10:50 AM OFFICE DIRECTOR Sexual Orientation Straight 03/06/2022 10 :50 AM OFFICE DIRECTOR 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 encounter Plan of Treatment Upcoming Encounters Date Type Department Care Team (Latest Contact Info) Description 02/24/2025 11:40 AM OFFICE DIRECTOR Office Visit [facility] - [place] [address] [place] [phone] Lise Posada MD [address] [place] [address] 03/01/2025 4:01 PM OFFICE DIRECTOR Hospital Encounter [facility] [place] [address] Shelby Croft MD [address] [place] [address] [place] [address] 03/01/2025 4:01 PM OFFICE DIRECTOR - 03/01/2025 5:17 PM OFFICE DIRECTOR Surgery [place] [address] Shelby Croft MD [address] [place] [address] [place] [address] TRANSANAL HEMORRHOIDAL DEARTERIALIZATION 05/06/2025 11:00 AM OFFICE DIRECTOR Office Visit [facility] Multispecialty Care - [facility] 3 [facility], [address] [place] [phone] Yulia Tim, SENIOR FINANCE MANAGER 3 [facility] [address] [place] [address] Scheduled Procedures Name Priority Associated Diagnoses Date/Ti me HEMORRHOIDECTOMY THD HEMORRHOIDS K64.4 03/01/2025 4:01 PM OFFICE DIRECTOR documented as of this encounter Visit Diagnoses Not on filedocumented in this encounter Additional Health Concerns Infection Onset Date Last Indicated Resolved Time COVID-19 Rule Out 01/21/2025 01/21/2025 01/21/2025 11:40 AM CDT Assessment Noted Time PHQ-9 Depression Total Score: 0 03/16/20 21 1:54 PM OFFICE DIRECTOR documented as of this encounter Care Teams Assembler Garment Form Relationship Specialty Start Date End Date Lise Posada MD PCP - General FAMILY PRACTICE 12/31/17 documented as of this encounter
--- OUTSIDE RECORDS SUMMARY | 2025-02-20 13:08 | XMS_ITS | Encounter Summary ---
Author Organization [facility] Address [facility] [place] [address] Care Team Providers Care Dozer Operator Name Role Phone Lise Posada MD Primary Care Provider [phone] Reason for Referral * Consultation/Treatment (Urgent) - Closed Specialty Diagnoses / Procedures Referred By Caitlin murguia Referred To Contact GENERAL SURGERY Diagnoses Hemorrhoids, unspecified hemorrhoid type Anemia, unspecified type Procedures OFFICE/OUTPT VISIT,NEW,LEVL III OFFICE/OUTPT VISIT,NEW,LEVL IV OFFICE/OUTPT VISIT,NEW,LEVL V OFFICE/OUTPT VISIT,EST,LEVL III OFFICE/OUTPT VISIT,EST,LEVL IV OFFICE/OUTPT VISIT,EST,LEVL V Lise Posada MD [address] [place] [address] Phone: tel: fax: Shelby Croft MD [facility] [address] Phone: tel: fax: Referral ID Status Reason Start Date Expiration Date Visits Re quested Visits Authorized [id number] Closed 12/29/2021 12/29/2022 99 99 Scheduling Instructions Pt's Hgb dropped from 11.5 to 8.4 in 1 month. Pt reports worsening hemorrhoidal bleeding. Please eval/treat. Encounter Details Date Type Department Care Team (Late st Contact Info) Description 12/29/2021 Doculynxhart Message Enc [facility] Medical Group [facility] [address] [place] [address] Lise Posada MD [address] [place] [address] Hemoglobin Social History Tobacco Use [...] Sex Assigned at Female 03/06/2022 10:50 AM APPLICATION PROGRAMMER ANALYST Legal Sex Female 11:21 AM APPLICATION PROGRAMMER ANALYST Gender Identity Female 03/06/2022 10:50 AM APPLICATION PROGRAMMER ANALYST Sexual Orientation Straight 03/06/2022 10 :50 AM APPLICATION PROGRAMMER ANALYST Occupation Industry Job Start Date Job [...] (Latest Contact Info) Description 02/24/2025 11:40 AM APPLICATION PROGRAMMER ANALYST Office Visit [facility] Family Medicine - [place] [address] [place] [address] Lise Posada MD [address] [place] [address] 03/01/2025 4:01 PM APPLICATION PROGRAMMER ANALYST Hospital Encounter [facility] [place] [address] Shelby Croft MD [address] [facility] [address] [place] [address] 03/01/2025 4:01 PM APPLICATION PROGRAMMER ANALYST - 03/01/2025 5:17 PM APPLICATION PROGRAMMER ANALYST [place] [address] Shelby Croft MD [address] [facility] [address] [place] [address] TRANSANAL HEMORRHOIDAL DEARTERIALIZATION 05/06/2025 11:00 AM APPLICATION PROGRAMMER ANALYST Office Visit [facility] Multispecialty Care - [facility] 3 [facility], [address] [place] [phone] Yulia Tim, TORSTEN 3 [facility] [address] [place] [address] Scheduled Procedures Name Priority Associated Diagnoses Date/Ti me HEMORRHOIDECTOMY THD HEMORRHOIDS K64.4 03/01/2025 4:01 PM APPLICATION PROGRAMMER ANALYST Scheduled Referrals Name Type Priority Associated Diagnoses [...] Total Score: 0 03/16/20 21 1:54 PM APPLICATION PROGRAMMER ANALYST documented as of this encounter Care Teams Dozer Operator Relationship Specialty Start Date End Date Lise Posada MD PCP - General FAMILY PRACTICE 12/31/17 documented as of this encounter
--- OUTSIDE RECORDS SUMMARY | 2025-02-20 13:08 | XMS_ITS | Encounter Summary ---
Author Organization [facility] Address [address] [place] [address] Care Team Providers Care Dumper Mold Cleaner Name Role Phone Lise Posada MD Primary Care Provider [phone] Encounter Details Date Type Department Care Team (Late st Contact Info) Description 02/20/2023 Prep for Procedure [facility] [place] [address] Conchis Johns MD [address] [place] [address] Social History Tobacco Use Types Packs/Day Years Used Date Smoking Tobacco: Never Smokeless Tobacco: Never Alcohol Use Standard Drinks/Week Comments Yes 0 (1 standard drink = 0.6 oz pur e alcohol) occasional PHQ-2 Answer Date Recorded Patient Health Questionnaire-2 Score 2 05/30/2022 Comments No Sex and Gender Information Value Date Recorded Sex Assigned at Female 03/06/2022 10:50 AM INDUSTRIAL TECHNOLOGY EDUCATION TEACHER Legal Sex Female 11:21 AM INDUSTRIAL TECHNOLOGY EDUCATION TEACHER Gender Identity Female 03/06/2022 10:50 AM INDUSTRIAL TECHNOLOGY EDUCATION TEACHER Sexual Orientation Straight 03/06/2022 10 :50 AM INDUSTRIAL TECHNOLOGY EDUCATION TEACHER 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 Wish to be (Past 1 Month) No 02/20/2023 8:10 AM INDUSTRIAL TECHNOLOGY EDUCATION TEACHER Norma Jarrett RN Act edil 2. Non-Specific Active Suicidal Thoughts (Past 1 Month) No 02/20/2023 8:10 AM Norma Mackenzie RN Act edil 6. Suicidal Behavior (Lifetime) No 02/20/2023 8:10 AM Norma Mackenzie RN Act edil documented as of this encounter Plan of Treatment Upcoming Encounters Date Type Department Care Team (Latest Contact Info) Description 02/24/2025 11:40 AM INDUSTRIAL TECHNOLOGY EDUCATION TEACHER Office Visit [facility] Family [facility] [address] [place] [address] Lise Posada MD [address] [place] [address] 03/01/2025 4:01 PM INDUSTRIAL TECHNOLOGY EDUCATION TEACHER Hospital Encounter [facility] [place] [address] Shelby Croft MD [address] [place] [address] 03/01/2025 4:01 PM INDUSTRIAL TECHNOLOGY EDUCATION TEACHER - 03/01/2025 5:17 PM INDUSTRIAL TECHNOLOGY EDUCATION TEACHER Surgery [facility] [place] [place] [address] Shelby Croft MD [address] [place] [address] [place] [phone] TRANSANAL HEMORRHOIDAL DEARTERIALIZATION 05/06/2025 11:00 AM INDUSTRIAL TECHNOLOGY EDUCATION TEACHER Office Visit [facility] Multispecialty Care - [facility] 3 [facility], [address] [place] [address] Yulia Tim, DIRECTOR PROJECT MANAGEMENT 3 [facility] [address] [place] [address] Scheduled Procedures Name Priority Associated Diagnoses Date/Ti me HEMORRHOIDECTOMY THD HEMORRHOIDS K64.4 03/01/2025 4:01 PM INDUSTRIAL TECHNOLOGY EDUCATION TEACHER documented as of this encounter Results * TYPE & SCREEN (02/18/2023 3:48 PM INDUSTRIAL TECHNOLOGY EDUCATION TEACHER) Pathologist [facility] ABO/RH O POSITIVE 02/18/2023 4:41 PM INDUSTRIAL TECHNOLOGY EDUCATION TEACHER [facility] ANTIBODY SCREEN NEGATIVE 02/18/2023 4:41 PM INDUSTRIAL TECHNOLOGY EDUCATION TEACHER [facility] SAMPLE EXPIRATION 02/21/2023,2 359 02/18/2023 4:41 PM INDUSTRIAL TECHNOLOGY EDUCATION TEACHER [facility] 02/18/2023 3:48 PM INDUSTRIAL TECHNOLOGY EDUCATION TEACHER us Conchis Johns MD BLOOD BANK TEST ORDERABLES Final Result [facility] [address] [place] [address], * (ABNORMAL) CBC W/DIFF AUTOMATED (02/13/2023 12:56 PM CDT) WBC 7.3 4.5 - 11.0 x10'3/uL 02/13/2023 3:23 PM CDT [facility] RBC 3.72(L) 4.20 - 5.40 x10'6/uL 02/13/2023 3:23 PM CDT [facility] HGB 6.0(LL) 12.0 - 16.0 G/DL 02/13/2023 3:23 PM CDT [facility] Comment: This result has been called to MEGAN CASE by BILL GOLDSTEIN on 02 13 2023 at 1522, and has been read back. HCT 23.2(L) 38.0 - 48.0 % 02/13/2023 3:23 PM CDT [facility] MCV 62.4(L) 81.0 - 99.0 FL 02/13/2023 3:23 PM CDT [facility] MCH 16.1(L) 27.0 - 31.0 PG 02/13/2023 3:23 PM CDT [facility] MCHC 25.9(L) 32.0 - 36.0 G/DL 02/13/2023 3:23 PM CDT [facility] RDW 21.8(H) 11.5 - 14.5 % 02/13/2023 3:23 PM CDT [facility] PLT 350 130 - 400 x10'3/uL 02/13/2023 3:23 PM CDT [facility] DIFFERENTIAL TYPE AUTOMATED DIFFERENTIAL 02/13/2023 3:23 PM CDT [facility] NEUTROPHILS % 54.5 % 02/13/2023 3:23 PM CDT [facility] LYMPHOCYTES % 36.0 % 02/13/2023 3:23 PM CDT [facility] MONOCYTES % 7.8 % 02/13/2023 3:23 PM CDT [facility] EOSINOPHILS 0.5 % 02/13/2023 3:23 PM CDT [facility] BASOPHILS 0.8 % 02/13/2023 3:23 PM CDT [facility] IMMATURE GRANS % 0.4 % 02/14/20 3:23 PM CDT [facility] ABS. NEUTROPHILS TOTAL 4.00 1.80 - 7.70 x10'3/uL 02/13/2023 3:23 PM CDT [facility] ABS. LYMPHOCYTES 2.64 1.00 - 4.80 x10'3/uL 02/13/2023 3:23 PM CDT [facility] ABS. MONOCYTES 0.57 0.24 - 0.86 x10'3/uL 02/13/2023 3:23 PM CDT [facility] ABS. EOSINOPHILS 0.04 0.04 - 0.36 x10'3/uL 02/13/2023 3:23 PM CDT [facility] ABS. BASOPHILS 0.06 0.01 - 0.08 x10'3/uL 02/13/2023 3:23 PM CDT [facility] ABS. IMMATURE GRANULOCYTES 0.03 0.00 - 0.49 x10'3/uL 02/13/2023 3:23 PM CDT [facility] RBC MORPHOLOGY SLIDE REVIEWED 2022 3:23 PM CDT [facility] ANISO 1+ 02/13/2023 3:23 PM CDT [facility] HYPOCHROMASIA 2+ 02/13/2023 3:23 PM CDT [facility] MICRO 3+ 02/13/2023 3:23 PM CDT [facility] PLT EST. ADEQUATE 02/13/2023 3:23 PM CDT [facility] PATHOLOGIST COMMENT PATHOLOGIST REVIEW TO FOLLOW. 02/13/2023 3:23 PM CDT [facility] 02/13/2023 12:5 6 PM CDT us Conchis Johns MD LABORATORY Final Result Performing Organization Address City/[facility]/ZIP Co de Phone Number [facility] [address] [place] [address], * TYPE & SCREEN (02/13/2023 12:56 PM CDT) ABO/RH O POSITIVE 02/13/2023 3:09 PM CDT [facility] ANTIBODY SCREEN NEGATIVE 02/13/2023 3:09 PM CDT [facility] SAMPLE EXPIRATION 02/16/2023,2 359 02/13/2023 3:09 PM CDT [facility] 02/13/2023 12:5 6 PM CDT Conchis Johns MD BLOOD BANK TEST ORDERABLES Final Result Performing Organization Address [facility] Co de Phone Number [facility] [address] [place] [address], documented in this encounter Visit Diagnoses Diagnosis Menometrorrhagia- Primary Excessive or frequent menstruation Uterine prolapse Uterine prolapse without mention of vaginal wall prolapse documented in this encounter Additional Health Concerns Infection Onset Date Last Indicated Resolved Time COVID-19 Rule Out 01/21/2025 01/21/2025 01/21/2025 11:40 AM CDT Assessment Noted Time PHQ-9 Depression Total Score: 0 03/16/20 21 1:54 PM INDUSTRIAL TECHNOLOGY EDUCATION TEACHER documented as of this encounter Care Teams Dumper Mold Cleaner Relationship Specialty Start Date End Date Lise Posada MD PCP - General FAMILY PRACTICE 12/31/17 documented as of this encounter
--- OUTSIDE RECORDS SUMMARY | 2025-02-20 13:08 | XMS_ITS | Encounter Summary ---
Author Organization [facility] Address [address] [place] [address] Care Team Providers Care Enterprise Mobility Architect Name Role Phone Lise Posada MD Primary Care Provider [phone] Encounter Details Date Type Department Care Team (Late st Contact Info) Description 10/11/[address] [facility] Family Medicine [facility] [address] [place] [address] [place] [address] [place] [address] My upper right side and back [...] Sex Assigned at Female 03/06/2022 10:50 AM FURNACE TAPPER Legal Sex Female 11:21 AM FURNACE TAPPER Gender Identity Female 03/06/2022 10:50 AM FURNACE TAPPER Sexual Orientation Straight 03/06/2022 10 :50 AM FURNACE TAPPER Occupation Industry Job Start Date Job End [...] (Latest Contact Info) Description 02/24/2025 11:40 AM FURNACE TAPPER Office Visit [facility] Family Medicine - [address] [phone] Lise Posada MD [address] [place] [address] 03/01/2025 4:01 PM FURNACE TAPPER Hospital Encounter [facility] [place] [address] Shelby Croft MD [address] [place] [address] 03/01/2025 4:01 PM FURNACE TAPPER - 03/01/2025 5:17 PM FURNACE TAPPER Surgery [facility] [address] Shelby Croft MD [address] [place] [phone] TRANSANAL HEMORRHOIDAL DEARTERIALIZATION 05/06/2025 11:00 AM FURNACE TAPPER Office Visit [facility] Multispecialty Care - [facility] 3 [facility], [address] [place] [address] Yulia Tim APRN 3 [facility] [address] [place] [address] Scheduled Procedures Name Priority Associated Diagnoses Date/Ti me HEMORRHOIDECTOMY THD HEMORRHOIDS K64.4 03/01/2025 4:01 PM FURNACE TAPPER documented as of this encounter Visit Diagnoses Not on filedocumented in this encounter Additional Health Concerns Infection Onset Date Last Indicated Resolved Time COVID-19 Rule Out 01/21/2025 01/21/2025 01/21/2025 11:40 AM CDT Assessment Noted Time PHQ-9 Depression Total Score: 5 09/19/19 24 10:57 AM CDT documented as of this encounter Care Teams Enterprise Mobility Architect Relationship Specialty Start Date End Date Lise Posada MD PCP - General FAMILY PRACTICE 12/31/17 documented as of this encounter
--- OUTSIDE RECORDS SUMMARY | 2025-02-20 13:08 | XMS_ITS | Encounter Summary ---
Author Organization [facility] Address [facility]6 [place] [address] Care Team Providers Care Packing And Wrapping Supervisor Name Role Phone Lise Posada MD Primary Care Provider [phone] Encounter Details Date Type Department Care Team (Late st Contact Info) Description 12/23/2023 MyChart Message Enc [facility] Family Medicine [facility] [address] [place] [address] Lise Posada MD [address] [place] [address] Referral letter Social History Tobacco Use Types Packs/Day Years Used Date Smoking Tobacco: Never Smokeless Tobacco: Never Alcohol Use Standard Drinks/Week Comments Yes 0 (1 standard drink = 0.6 oz pur e alcohol) occasional PHQ-2 Answer Date Recorded Patient Health Questionnaire-2 Score 0 12/20/2023 Comments No Sex and Gender Information Value Date Recorded Sex Assigned at Female 03/06/2022 10:50 AM BLUEPRINTING MACHINE OPERATOR Legal Sex Female 11:21 AM BLUEPRINTING MACHINE OPERATOR Gender Identity Female 03/06/2022 10:50 AM BLUEPRINTING MACHINE OPERATOR Sexual Orientation Straight 03/06/2022 10 :50 AM BLUEPRINTING MACHINE OPERATOR 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 encounter Plan of Treatment Upcoming Encounters Date Type Department Care Team (Latest Contact Info) Description 02/24/2025 11:40 AM BLUEPRINTING MACHINE OPERATOR Office Visit [facility] Family Medicine - [place] [address] [place] [address] Lise Posada MD [address] [place] [address] 03/01/2025 4:01 PM BLUEPRINTING MACHINE OPERATOR Hospital Encounter [facility] [place] [address] Shelby Croft MD [address] [place] [address] [place] [address] 03/01/2025 4:01 PM BLUEPRINTING MACHINE OPERATOR - 03/01/2025 5:17 PM BLUEPRINTING MACHINE OPERATOR Surgery [facility] [place] [address] Shelby Croft MD [address] [place] [address] [place] [address] TRANSANAL HEMORRHOIDAL DEARTERIALIZATION 05/06/2025 11:00 AM BLUEPRINTING MACHINE OPERATOR Office Visit [facility] Multispecialty Care - [facility] 3 [facility], [address] [place] [address] Yulia Tim, SUPPLIER QUALITY ENGINEERING MANAGER 3 [facility] [address] [place] [address] Scheduled Procedures Name Priority Associated Diagnoses Date/Ti me HEMORRHOIDECTOMY THD HEMORRHOIDS K64.4 03/01/2025 4:01 PM BLUEPRINTING MACHINE OPERATOR documented as of this encounter Visit Diagnoses Not on filedocumented in this encounter Additional Health Concerns Infection Onset Date Last Indicated Resolved Time COVID-19 Rule Out 01/21/2025 01/21/2025 01/21/2025 11:40 AM CDT Assessment Noted Time PHQ-9 Depression Total Score: 5 09/19/19 24 10:57 AM CDT documented as of this encounter Care Teams Packing And Wrapping Supervisor Relationship Specialty Start Date End Date Lise Posada MD PCP - General FAMILY PRACTICE 12/31/17 documented as of this encounter
--- OUTSIDE RECORDS SUMMARY | 2025-02-20 13:08 | XMS_ITS | Encounter Summary ---
Author Organization [facility] Address [facility] [place] [address] Care Team Providers Care Drafting Layout Man Name Role Phone Lise Posada MD Primary Care Provider Encounter Details Date Type Department Care Team (Late st Contact Info) Description 01/07/2024 BF Commodities Message Enc [facility] Family Medicine [address] [address] [employer], [facility] Provider Medication refill Social History Tobacco Use Types Packs/Day Years Used Date Smoking Tobacco: Never Smokeless Tobacco: Never Alcohol Use Standard Drinks/Week Comments Yes 0 (1 standard drink = 0.6 oz pur e alcohol) occasional PHQ-2 Answer Date Recorded Patient Health Questionnaire-2 Score 0 12/20/2023 Comments No Sex and Gender Information Value Date Recorded Sex Assigned at Female 03/06/2022 10:50 AM WELL LOGGER Legal Sex Female 11:21 AM WELL LOGGER Gender Identity Female 03/06/2022 10:50 AM WELL LOGGER Sexual Orientation Straight 03/06/2022 10 :50 AM WELL LOGGER 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 Thanks! ~Dr Olmos documented in this encounter Plan of Treatment Upcoming Encounters Date Type Department Care Team (Latest Contact Info) Description 02/24/2025 11:40 AM WELL LOGGER Office Visit [facility] Family Medicine - [place] [address] [place] [address] Lise Posada MD [address] [place] [address] 03/01/2025 4:01 PM WELL LOGGER Hospital Encounter [facility] [place] [address] Shelby Croft MD [facility]4 [facility] [address] [place] [address] 03/01/2025 4:01 PM WELL LOGGER - 03/01/2025 5:17 PM WELL LOGGER Surgery [facility] [place] [address] Shelby Croft MD [facility] [address] [place] [address] TRANSANAL HEMORRHOIDAL DEARTERIALIZATION 05/06/2025 11:00 AM WELL LOGGER Office Visit [facility] Multispecialty Care - [facility] 3 [facility], [address] [place] [phone] Yulia Tim APRN 3 [facility] [address] [place] [address] Scheduled Procedures Name Priority Associated Diagnoses Date/Ti me HEMORRHOIDECTOMY THD HEMORRHOIDS K64.4 03/01/2025 4:01 PM WELL LOGGER documented as of this encounter Visit Diagnoses Not on filedocumented in this encounter Additional Health Concerns Infection Onset Date Last Indicated Resolved Time COVID-19 Rule Out 01/21/2025 01/21/2025 01/21/2025 11:40 AM CDT Assessment Noted Time PHQ-9 Depression Total Score: 5 09/19/19 24 10:57 AM CDT documented as of this encounter Care Teams Drafting Layout Man Relationship Specialty Start Date End Date Lise Posada MD PCP - General FAMILY PRACTICE 12/31/17 documented as of this encounter
--- OUTSIDE RECORDS SUMMARY | 2025-02-20 13:08 | XMS_ITS | Encounter Summary ---
Author Organization [facility] Address [facility] [place] [address] Care Team Providers Care Boxing Inspector Name Role Phone Lise Posada MD Primary Care Provider [phone] Encounter Details Date Type Department Care Team (Late st Contact Info) Description 01/18/2022 MyCADVANCED CREDIT TECHNOLOGIESt Message Enc [facility] Family Medicine [facility] [address] [place] [address] [place] [address] [place] [address] Blood work Social History Tobacco Use [...] Sex Assigned at Female 03/06/2022 10:50 AM CARE SPECIALIST Legal Sex Female 11:21 AM CARE SPECIALIST Gender Identity Female 03/06/2022 10:50 AM CARE SPECIALIST Sexual Orientation Straight 03/06/2022 10 :50 AM CARE SPECIALIST Occupation Industry Job Start Date Job [...] PM CDT Brea Schrader RN Active * [place] Suicide Severity Rating Scale (Screener/Recent Self-Report) Question [...] (Latest Contact Info) Description 02/24/2025 11:40 AM CARE SPECIALIST Office Visit [facility] Family Medicine - [place] [address] [place] [phone] Lise Posada MD [address] [place] [address] 03/01/2025 4:01 PM CARE SPECIALIST Hospital Encounter [facility] [place], [place] [phone] Shelby Croft MD [facility] [address] 03/01/2025 4:01 PM CARE SPECIALIST - 03/01/2025 5:17 PM CARE SPECIALIST Surgery [place] [address] Shelby Croft MD [address] [facility] [address] [place] [address] TRANSANAL HEMORRHOIDAL DEARTERIALIZATION 05/06/2025 11:00 AM CARE SPECIALIST Office Visit [facility] Multispecialty Care - [facility] 3 [facility], [address] [place] [address] Yulia Tim, DATABASE MANAGEMENT SYSTEM SPECIALIST 3 [facility] [address] [place] [address] Scheduled Procedures Name Priority Associated Diagnoses Date/Ti me HEMORRHOIDECTOMY THD HEMORRHOIDS K64.4 03/01/2025 4:01 PM CARE SPECIALIST documented as of this encounter Visit Diagnoses Not on filedocumented in this encounter Additional Health Concerns Infection Onset Date Last Indicated Resolved Time COVID-19 Rule Out 01/21/2025 01/21/2025 01/21/2025 11:40 AM CDT Assessment Noted Time PHQ-9 Depression Total Score: 0 03/16/20 21 1:54 PM CARE SPECIALIST documented as of this encounter Care Teams Boxing Inspector Relationship Specialty Start Date End Date Lise Posada MD PCP - General FAMILY PRACTICE 12/31/17 documented as of this encounter
--- OUTSIDE RECORDS SUMMARY | 2025-02-20 13:08 | XMS_ITS | Encounter Summary ---
Author Organization [facility] Address [facility] [place] [address] Care Team Providers Care School Services Officer Name Role Phone Lise Posada MD Primary Care Provider Encounter Details Date Type Department Care Team (Late st Contact Info) Description 09/23/2023 Fulcrum SP Materialst Message Enc [facility] Family Medicine [facility] [address] [place] [phone] [place] [address] [place] [address] Blood work Social History Tobacco Use Types Packs/Day Years Used Date Smoking Tobacco: Never Smokeless Tobacco: Never Alcohol Use Standard Drinks/Week Comments Yes 0 (1 standard drink = 0.6 oz pur e alcohol) occasional PHQ-2 Answer Date Recorded Patient Health Questionnaire-2 Score 0 09/19/2023 Comments No Sex and Gender Information Value Date Recorded Sex Assigned at Female 03/06/2022 10:50 AM DISBURSING OFFICER Legal Sex Female 11:21 AM DISBURSING OFFICER Gender Identity Female 03/06/2022 10:50 AM DISBURSING OFFICER Sexual Orientation Straight 03/06/2022 10 :50 AM DISBURSING OFFICER Occupation Industry Job Start Date Job End Date [facility] [employer] [facility] Not on file Not on file Not [...] (Latest Contact Info) Description 02/24/2025 11:40 AM DISBURSING OFFICER Office Visit [facility] Family Medicine - [address] [address] Lise Posada MD [address] [place] [address] 03/01/2025 4:01 PM DISBURSING OFFICER Hospital Encounter [facility] [place] [address] Shelby Croft MD [address] [place] [address] [place] [address] 03/01/2025 4:01 PM DISBURSING OFFICER - 03/01/2025 5:17 PM DISBURSING OFFICER Surgery [facility] [place] [address] Shelby Croft MD [facility]4 [facility] [address] [place], [place] [phone] TRANSANAL HEMORRHOIDAL DEARTERIALIZATION 05/06/2025 11:00 AM DISBURSING OFFICER Office Visit [facility] Multispecialty Care - [facility] 3 [facility], [address] [place] [phone] Yulia Tim, COMMUNITY AIDE 3 [facility] [address] [place] [address] Scheduled Procedures Name Priority Associated Diagnoses Date/Ti me HEMORRHOIDECTOMY THD HEMORRHOIDS K64.4 03/01/2025 4:01 PM DISBURSING OFFICER documented as of this encounter Visit Diagnoses Not on filedocumented in this encounter Additional Health Concerns Infection Onset Date Last Indicated Resolved Time COVID-19 Rule Out 01/21/2025 01/21/2025 01/21/2025 11:40 AM CDT Assessment Noted Time PHQ-9 Depression Total Score: 5 09/19/19 24 10:57 AM CDT documented as of this encounter Care Teams School Services Officer Relationship Specialty Start Date End Date Lise Posada MD PCP - General FAMILY PRACTICE 12/31/17 documented as of this encounter
--- OUTSIDE RECORDS SUMMARY | 2025-02-20 13:08 | XMS_ITS | Encounter Summary ---
Author Organization [facility] Address [facility] [place] [address] Care Team Providers Care Backing In Machine Tender Name Role Phone Lise Posada MD Primary Care Provider [phone] Encounter Details Date Type Department Care Team (Latest Contact Info) Description 09/24/2023 MyChart Message Enc [facility] Medical Group Multispecialty Care - [facility] 3 [facility], [address] [place] [phone] Jaya Carnes MD 3 [facility] Rickey [address] [place] [address] Medication/how can I find out if I [...] Sex Assigned at Female 03/06/2022 10:50 AM DESKTOP SUPPORT ENGINEER Legal Sex Female 11:21 AM DESKTOP SUPPORT ENGINEER Gender Identity Female 03/06/2022 10:50 AM DESKTOP SUPPORT ENGINEER Sexual Orientation Straight 03/06/2022 10 :50 AM DESKTOP SUPPORT ENGINEER 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 encounter Plan of Treatment Upcoming Encounters Date Type Department Care Team (Latest Contact Info) Description 02/24/2025 11:40 AM DESKTOP SUPPORT ENGINEER Office Visit [facility] Family Medicine - [place] [address] [place] [address] Lise Posada MD 1116 [place] [address] 03/01/2025 4:01 PM DESKTOP SUPPORT ENGINEER Hospital Encounter [facility] [place] [address] Shelby Croft MD [facility]4 [facility] [address] [place] [address] 03/01/2025 4:01 PM DESKTOP SUPPORT ENGINEER - 03/01/2025 5:17 PM DESKTOP SUPPORT ENGINEER Surgery [facility] [place] [address] Shelby Croft MD [facility]4 [facility] [address] [place] [address] TRANSANAL HEMORRHOIDAL DEARTERIALIZATION 05/06/2025 11:00 AM DESKTOP SUPPORT ENGINEER Office Visit [facility] Multispecialty Care - [facility] 3 [facility], [place] [address] Yulia Tim APRN 3 [facility] [address] [place] [address] Scheduled Procedures Name Priority Associated Diagnoses Date/Ti me HEMORRHOIDECTOMY THD HEMORRHOIDS K64.4 03/01/2025 4:01 PM DESKTOP SUPPORT ENGINEER documented as of this encounter Visit Diagnoses Not on filedocumented in this encounter Additional Health Concerns Infection Onset Date Last Indicated Resolved Time COVID-19 Rule Out 01/21/2025 01/21/2025 01/21/2025 11:40 AM CDT Assessment Noted Time PHQ-9 Depression Total Score: 5 09/19/19 24 10:57 AM CDT documented as of this encounter Care Teams Backing In Machine Tender Relationship Specialty Start Date End Date Lise Posada MD PCP - General FAMILY PRACTICE 12/31/17 documented as of this encounter
--- OUTSIDE RECORDS SUMMARY | 2025-02-20 13:08 | XMS_ITS | Encounter Summary ---
Author Organization [facility] Address [address] [place] [address] Care Team Providers Care Business Operations Consultant Name Role Phone Lise Posada MD Primary Care Provider [phone] Encounter Details Date Type Department Care Team (Late st Contact Info) Description 02/15/2023 Therapy Plan [facility] Infusion Services [place], [place] [phone] Conchis Johns MD [address] [place] [address] Social History Tobacco Use Types Packs/Day Years Used Date Smoking Tobacco: Never Smokeless Tobacco: Never Alcohol Use Standard Drinks/Week Comments Yes 0 (1 standard drink = 0.6 oz pur e alcohol) occasional PHQ-2 Answer Date Recorded Patient Health Questionnaire-2 Score 2 05/30/2022 Comments No Sex and Gender Information Value Date Recorded Sex Assigned at Female 03/06/2022 10:50 AM MIDDLE SCHOOL MATH TEACHER Legal Sex Female 11:21 AM MIDDLE SCHOOL MATH TEACHER Gender Identity Female 03/06/2022 10:50 AM MIDDLE SCHOOL MATH TEACHER Sexual Orientation Straight 03/06/2022 10 :50 AM MIDDLE SCHOOL MATH TEACHER 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 encounter Plan of Treatment Upcoming Encounters Date Type Department Care Team (Latest Contact Info) Description 02/24/2025 11:40 AM MIDDLE SCHOOL MATH TEACHER Office Visit [facility] Family Medicine - [place] [address] [place] [address] Lise Posada MD [address] [place] [address] 03/01/2025 4:01 PM MIDDLE SCHOOL MATH TEACHER Hospital Encounter [facility] [place] [address] Shelby Croft MD [address] [place] [address] [place] [address] 03/01/2025 4:01 PM MIDDLE SCHOOL MATH TEACHER - 03/01/2025 5:17 PM MIDDLE SCHOOL MATH TEACHER [place] [address] Shelby Croft MD [address] [place] [address] [place] [address] TRANSANAL HEMORRHOIDAL DEARTERIALIZATION 05/06/2025 11:00 AM MIDDLE SCHOOL MATH TEACHER Office Visit [facility] Multispecialty Care - [facility] 3 [facility], [address] [place] [address] Yulia Tim, CORPORATE COUNSEL 3 [facility] [address] [place] [address] Scheduled Procedures Name Priority Associated Diagnoses Date/Ti me HEMORRHOIDECTOMY THD HEMORRHOIDS K64.4 03/01/2025 4:01 PM MIDDLE SCHOOL MATH TEACHER documented as of this encounter Visit Diagnoses Diagnosis Anemia- Primary Anemia, unspecified documented in this encounter Additional Health Concerns Infection Onset Date Last Indicated Resolved Time COVID-19 Rule Out 01/21/2025 01/21/2025 01/21/2025 11:40 AM CDT Assessment Noted Time PHQ-9 Depression Total Score: 0 03/16/20 21 1:54 PM MIDDLE SCHOOL MATH TEACHER documented as of this encounter Care Teams Business Operations Consultant Relationship Specialty Start Date End Date Lise Posada MD PCP - General FAMILY PRACTICE 12/31/17 documented as of this encounter
--- OUTSIDE RECORDS SUMMARY | 2025-02-20 13:08 | XMS_ITS | Encounter Summary ---
Author Organization [facility] Address [address] [place] [address] Care Team Providers Care Mechanical Spreader Operator Name Role Phone Lise Posada MD Primary Care Provider [phone] Encounter Details Date Type Department Care Team (Late st Contact Info) Description 01/05/2022 MyChart Message Enc [facility] Medical Group Multispecialty Care - [address], [address] [place] [phone] Joseph Sommers MD [address] [place] [address] Lock toes Social History Tobacco Use Types [...] Sex Assigned at Female 03/06/2022 10:50 AM DIESEL ENGINE OPERATOR Legal Sex Female 11:21 AM DIESEL ENGINE OPERATOR Gender Identity Female 03/06/2022 10:50 AM DIESEL ENGINE OPERATOR Sexual Orientation Straight 03/06/2022 10 :50 AM DIESEL ENGINE OPERATOR Occupation Industry Job Start Date Job [...] (Latest Contact Info) Description 02/24/2025 11:40 AM DIESEL ENGINE OPERATOR Office Visit [facility] Medical Group Family Medicine - [address] [phone] Lise Posada MD [address] [place] [address] 03/01/2025 4:01 PM DIESEL ENGINE OPERATOR Hospital Encounter [facility] [place] [address] Shelby Croft MD 1414 [facility] [address] [place] [address] 03/01/2025 4:01 PM DIESEL ENGINE OPERATOR - 03/01/2025 5:17 PM DIESEL ENGINE OPERATOR Surgery [facility] [place] [address] Shelby Croft MD [facility]4 [facility] [address] [place] [address] TRANSANAL HEMORRHOIDAL DEARTERIALIZATION 05/06/2025 11:00 AM DIESEL ENGINE OPERATOR Office Visit [facility] Medical Group Multispecialty Care - [facility] 3 [facility], [address] [place] [address] Yulia Tim APRN 3 [facility] [address] [place] [address] Scheduled Procedures Name Priority Associated Diagnoses Date/Ti me HEMORRHOIDECTOMY THD HEMORRHOIDS K64.4 03/01/2025 4:01 PM DIESEL ENGINE OPERATOR documented as of this encounter Visit Diagnoses Not on filedocumented in this encounter Additional Health Concerns Infection Onset Date Last Indicated Resolved Time COVID-19 Rule Out 01/21/2025 01/21/2025 01/21/2025 11:40 AM CDT Assessment Noted Time PHQ-9 Depression Total Score: 0 03/16/20 21 1:54 PM DIESEL ENGINE OPERATOR documented as of this encounter Care Teams Mechanical Spreader Operator Relationship Specialty Start Date End Date Lise Posada MD PCP - General FAMILY PRACTICE 12/31/17 documented as of this encounter
--- OUTSIDE RECORDS SUMMARY | 2025-02-20 13:08 | XMS_ITS | Encounter Summary ---
Author Organization [facility] Address [address] [place] [address] Care Team Providers Care Hvac R Instructor Name Role Phone Lise Posada MD Primary Care Provider [phone] Encounter Details Date Type Department Care Team (Late st Contact Info) Description 08/17/2024 MyCNewscront Message Enc [facility] Medical Group Family Medicine [facility] [address] [place] [address] [place] [address] [place] [address] My left Kidney, and my upper [...] Sex Assigned at Female 03/06/2022 10:50 AM BACK MAKER Legal Sex Female 11:21 AM BACK MAKER Gender Identity Female 03/06/2022 10:50 AM BACK MAKER Sexual Orientation Straight 03/06/2022 10 :50 AM BACK MAKER 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 encounter Functional Status * Calculated C-SSRS Risk Score (Lifetime/Recent) Answer Date of Assessment Author Status No Risk Indicated 08/19/2024 12:54 PM CDT Reta Johnson, RN Active * [place] Suicide Severity Rating Scale (Screener/Recent Self-Report) Question [...] (Latest Contact Info) Description 02/24/2025 11:40 AM BACK MAKER Office Visit [facility] Medical Group Family Medicine - [address] [phone] Lise Posada MD [facility]6 [place] [address] 03/01/2025 4:01 PM BACK MAKER Hospital Encounter [facility] [place] [address] Shelby Croft MD 1414 [facility] [address] [place] [address] 03/01/2025 4:01 PM BACK MAKER - 03/01/2025 5:17 PM BACK MAKER Surgery [facility] OR [address] [facility] [place] [address] Shelby Croft MD [address] [place] [address] [address] [place] [address] TRANSANAL HEMORRHOIDAL DEARTERIALIZATION 05/06/2025 11:00 AM BACK MAKER Office Visit [facility] Medical Group Multispecialty Care - [facility] [address] [place] [address] Yulia Tim APRN 3 [facility] [address] [place] [address] Scheduled Procedures Name Priority Associated Diagnoses Date/Ti me HEMORRHOIDECTOMY THD HEMORRHOIDS K64.4 03/01/2025 4:01 PM BACK MAKER documented as of this encounter Visit Diagnoses Not on filedocumented in this encounter Additional Health Concerns Infection Onset Date Last Indicated Resolved Time COVID-19 Rule Out 01/21/2025 01/21/2025 01/21/2025 11:40 AM CDT Assessment Noted Time PHQ-9 Depression Total Score: 6 07/16/19 25 1:24 PM CDT documented as of this encounter Care Teams Hvac R Instructor Relationship Specialty Start Date End Date Lise Posada MD PCP - General FAMILY PRACTICE 12/31/17 documented as of this encounter
--- OUTSIDE RECORDS SUMMARY | 2025-02-20 13:09 | XMS_ITS | Encounter Summary ---
Author Organization [facility] Address [facility]6 [place] [address] Care Team Providers Care Campground Cleaning Attendant Name Role Phone Lise Posada MD Primary Care Provider [phone] Encounter Details Date Type Department Care Team (Late st Contact Info) Description 01/11/2025 MyChart Message Enc [facility] Medical Group Family Medicine [facility] [address] [place] [address] [place] [address] [place] [address] Swollen legs and ankles Social History [...] Sex Assigned at Female 03/06/2022 10:50 AM HIGH SCHOOL SCIENCE TUTOR Legal Sex Female 11:21 AM HIGH SCHOOL SCIENCE TUTOR Gender Identity Female 03/06/2022 10:50 AM HIGH SCHOOL SCIENCE TUTOR Sexual Orientation Straight 03/06/2022 10 :50 AM HIGH SCHOOL SCIENCE TUTOR Occupation Industry Job Start Date Job End [...] (Latest Contact Info) Description 02/24/2025 11:40 AM HIGH SCHOOL SCIENCE TUTOR Office Visit [facility] Family Medicine - [address] [address] Lise Posada MD [address] [place] [address] 03/01/2025 4:01 PM HIGH SCHOOL SCIENCE TUTOR Hospital Encounter [facility] [place] [address] Shelby Croft MD [address] [place] [address] 03/01/2025 4:01 PM HIGH SCHOOL SCIENCE TUTOR - 03/01/2025 5:17 PM HIGH SCHOOL SCIENCE TUTOR Surgery [facility] [place] [address] Shelby Croft MD [address] [place] [address] [place] [address] TRANSANAL HEMORRHOIDAL DEARTERIALIZATION 05/06/2025 11:00 AM HIGH SCHOOL SCIENCE TUTOR Office Visit [facility] Multispecialty Care - [facility] 3 [facility], [address] [place] [address] Yulia Tim, PIERCER 3 [facility] [address] [place] [address] Scheduled Procedures Name Priority Associated Diagnoses Date/Ti me HEMORRHOIDECTOMY THD HEMORRHOIDS K64.4 03/01/2025 4:01 PM HIGH SCHOOL SCIENCE TUTOR documented as of this encounter Visit Diagnoses Not on filedocumented in this encounter Additional Health Concerns Infection Onset Date Last Indicated Resolved Time COVID-19 Rule Out 01/21/2025 01/21/2025 01/21/2025 11:40 AM CDT Assessment Noted Time PHQ-9 Depression Total Score: 5 11/10/19 25 9:04 AM CDT documented as of this encounter Care Teams Campground Cleaning Attendant Relationship Specialty Start Date End Date Lise Posada MD PCP - General FAMILY PRACTICE 12/31/17 documented as of this encounter
--- OUTSIDE RECORDS SUMMARY | 2025-02-20 13:09 | XMS_ITS | Encounter Summary ---
Author Organization [facility] Address [facility] [place] [address] Care Team Providers Care Car Manager Name Role Phone Lise Posada MD Primary Care Provider [phone] Encounter Details Date Type Department Care Team (Late st Contact Info) Description 01/31/2022 MyCBatesHookt Message Enc [facility] Medical Group Family Medicine [facility] [address] [place] [address] [place] [address] [place] [address] Nurse visit Social History Tobacco Use [...] Sex Assigned at Female 03/06/2022 10:50 AM ANIMAL CAREGIVER Legal Sex Female 11:21 AM ANIMAL CAREGIVER Gender Identity Female 03/06/2022 10:50 AM ANIMAL CAREGIVER Sexual Orientation Straight 03/06/2022 10 :50 AM ANIMAL CAREGIVER Occupation Industry Job Start Date Job End [...] (Latest Contact Info) Description 02/24/2025 11:40 AM ANIMAL CAREGIVER Office Visit [facility] Family Medicine - [place] [address] [place] [address] Lise Posada MD [address] [place] [address] 03/01/2025 4:01 PM ANIMAL CAREGIVER Hospital Encounter [facility] [place] [address] Shelby Croft MD [facility]4 [facility] [address] [place] [phone] 03/01/2025 4:01 PM ANIMAL CAREGIVER - 03/01/2025 5:17 PM ANIMAL CAREGIVER Surgery [facility] [place] [address] Shelby Croft MD [facility]4 [facility] [address] [place] [address] TRANSANAL HEMORRHOIDAL DEARTERIALIZATION 05/06/2025 11:00 AM ANIMAL CAREGIVER Office Visit [facility] Multispecialty Care - [facility] 3 [facility], [address] [place] [address] Yulia Tim APRN 3 [facility] [address] [place] [address] Scheduled Procedures Name Priority Associated Diagnoses Date/Ti me HEMORRHOIDECTOMY THD HEMORRHOIDS K64.4 03/01/2025 4:01 PM ANIMAL CAREGIVER documented as of this encounter Visit Diagnoses Not on filedocumented in this encounter Additional Health Concerns Infection Onset Date Last Indicated Resolved Time COVID-19 Rule Out 01/21/2025 01/21/2025 01/21/2025 11:40 AM CDT Assessment Noted Time PHQ-9 Depression Total Score: 0 03/16/20 21 1:54 PM ANIMAL CAREGIVER documented as of this encounter Care Teams Car Manager Relationship Specialty Start Date End Date Lise Posada MD PCP - General FAMILY PRACTICE 12/31/17 documented as of this encounter
--- OUTSIDE RECORDS SUMMARY | 2025-02-20 13:09 | XMS_ITS | Encounter Summary ---
Author Organization [facility] Address [facility] [place] [address] Care Team Providers Care Tip Out Worker Name Role Phone Lise Posada MD Primary Care Provider [phone] Encounter Details Date Type Department Care Team (Late st Contact Info) Description 09/30/2021 [employer] [facility] Patient Accounts [address] [place] [address] [facility] Provider Monthly Payment Plan Social History Tobacco [...] Sex Assigned at Female 03/06/2022 10:50 AM PAPER BAG PRESS OPERATOR Legal Sex Female 11:21 AM PAPER BAG PRESS OPERATOR Gender Identity Female 03/06/2022 10:50 AM PAPER BAG PRESS OPERATOR Sexual Orientation Straight 03/06/2022 10 :50 AM PAPER BAG PRESS OPERATOR COVID-19 Exposure Response Date Recorded In the last 10 days, have yo u been in contact with someone who was confirmed or suspected to have Coronavirus/COVID-19? No / Unsure 09/25/2021 3:42 PM CDT documented as of this encounter Plan of Treatment Upcoming Encounters Date Type Department Care Team (Latest Contact Info) Description 02/24/2025 11:40 AM PAPER BAG PRESS OPERATOR Office Visit [facility] Family Medicine - [place] [address] [place] [address] Lise Posada MD [address] [place] [address] 03/01/2025 4:01 PM PAPER BAG PRESS OPERATOR Hospital Encounter [facility] [place] [address] Shelby Croft MD [address] [place] [address] [place] [address] 03/01/2025 4:01 PM PAPER BAG PRESS OPERATOR - 03/01/2025 5:17 PM PAPER BAG PRESS OPERATOR Surgery [facility] [place] [address] Shelby Croft MD [address] [place] [address] [place] [address] TRANSANAL HEMORRHOIDAL DEARTERIALIZATION 05/06/2025 11:00 AM PAPER BAG PRESS OPERATOR Office Visit [facility] Multispecialty Care - [facility] 3 [facility], [address] [place] [address] Yulia Tim, TORSTEN 3 [facility] [address] [place] [address] Scheduled Procedures Name Priority Associated Diagnoses Date/Ti me HEMORRHOIDECTOMY THD HEMORRHOIDS K64.4 03/01/2025 4:01 PM PAPER BAG PRESS OPERATOR documented as of this encounter Visit Diagnoses Not on filedocumented in this encounter Additional Health Concerns Infection Onset Date Last Indicated Resolved Time COVID-19 Rule Out 01/21/2025 01/21/2025 01/21/2025 11:40 AM CDT Assessment Noted Time PHQ-9 Depression Total Score: 0 03/16/20 21 1:54 PM PAPER BAG PRESS OPERATOR documented as of this encounter Care Teams Tip Out Worker Relationship Specialty Start Date End Date Lise Posada MD PCP - General FAMILY PRACTICE 12/31/17 documented as of this encounter
--- OUTSIDE RECORDS SUMMARY | 2025-02-20 13:09 | XMS_ITS | Encounter Summary ---
Author Organization [facility] Address [address] [place] [address] Care Team Providers Care Levi Maker Name Role Phone Lise Posada MD Primary Care Provider [phone] Encounter Details Date Type Department Care Team (Latest Contact Info) Description 01/22/2025 Results Follow-Up [facility] Medical Group Family Medicine [facility] [address] [place] [address] Lise Posada MD [address] [place] [address] IRON SAT PANEL (IRON,IBC,%SAT), CBC [...] Assigned at Female 03/06/2022 10:50 AM DIRECTOR REGULATORY AGENCY Legal Sex Female 11:21 AM DIRECTOR REGULATORY AGENCY Gender Identity Female 03/06/2022 10:50 AM DIRECTOR REGULATORY AGENCY Sexual Orientation Straight 03/06/2022 10 :50 AM DIRECTOR REGULATORY AGENCY Occupation Industry Job Start Date Job End [...] Contact Info) Description 02/24/2025 11:40 AM DIRECTOR REGULATORY AGENCY Office Visit [facility] Family Medicine [facility] [address] [place] [phone] Lise Posada MD [address] [place] [address] 03/01/2025 4:01 PM DIRECTOR REGULATORY AGENCY Hospital Encounter [facility] [place] [address] Shelby Croft MD [address] [place] [address] 03/01/2025 4:01 PM DIRECTOR REGULATORY AGENCY - 03/01/2025 5:17 PM DIRECTOR REGULATORY AGENCY Surgery [facility] [place] [address] Shelby Croft MD [address] [place] [address] TRANSANAL HEMORRHOIDAL DEARTERIALIZATION 05/06/2025 11:00 AM DIRECTOR REGULATORY AGENCY Office Visit [facility] Multispecialty Care - [facility] 3 [facility], [address] [place] [address] Yulia Tim APRN 3 [facility] [address] [place] [address] Scheduled Procedures Name Priority Associated Diagnoses Date/Ti me HEMORRHOIDECTOMY THD HEMORRHOIDS K64.4 03/01/2025 4:01 PM DIRECTOR REGULATORY AGENCY documented as of this encounter Visit Diagnoses Not on filedocumented in this encounter Additional Health Concerns Assessment Noted Time PHQ-9 Depression Total Score: 5 11/10/19 25 9:04 AM CDT documented as of this encounter Care Teams Levi Maker Relationship Specialty Start Date End Date Lise Posada MD PCP - General FAMILY PRACTICE 12/31/17 documented as of this encounter
--- OUTSIDE RECORDS SUMMARY | 2025-02-20 13:09 | XMS_ITS | Encounter Summary ---
Author Organization [facility] Address [facility] [place] [address] Care Team Providers Care Hotel Operations Manager Name Role Phone Lise Posada MD Primary Care Provider [phone] Encounter Details Date Type Department Care Team (Late st Contact Info) Description 11/01/2021 MyCGeoPollt Message Enc [facility] Family Medicine [facility] [address] [place] [address] Lise Posada MD [address] [place] [address] Question regarding US ABD LIMITED [...] Sex Assigned at Female 03/06/2022 10:50 AM MANAGEMENT LEAD Legal Sex Female 11:21 AM MANAGEMENT LEAD Gender Identity Female 03/06/2022 10:50 AM MANAGEMENT LEAD Sexual Orientation Straight 03/06/2022 10 :50 AM MANAGEMENT LEAD COVID-19 Exposure Response Date Recorded In the last 10 days, have yo u been in contact with someone who was confirmed or suspected to have Coronavirus/COVID-19? No / Unsure 11/01/2021 10:36 AM CDT documented as of this encounter Plan of Treatment Upcoming Encounters Date Type Department Care Team (Latest Contact Info) Description 02/24/2025 11:40 AM MANAGEMENT LEAD Office Visit [facility] [place] [address] [place] [phone] Lise Psoada MD [address] [place] [address] 03/01/2025 4:01 PM MANAGEMENT LEAD Hospital Encounter [facility] [place] [address] Shelby Croft MD [address] [place] [address] [place] [address] 03/01/2025 4:01 PM MANAGEMENT LEAD - 03/01/2025 5:17 PM MANAGEMENT LEAD Surgery [facility] [place] [address] Shelby Croft MD [address] [place] [address] [place] [address] TRANSANAL HEMORRHOIDAL DEARTERIALIZATION 05/06/2025 11:00 AM MANAGEMENT LEAD Office Visit [facility] [address] [facility], [address] [place] [phone] Yulia Tim APRN 3 [facility] [address] [place] [phone] Scheduled Procedures Name Priority Associated Diagnoses Date/Ti me HEMORRHOIDECTOMY THD HEMORRHOIDS K64.4 03/01/2025 4:01 PM MANAGEMENT LEAD documented as of this encounter Visit Diagnoses Not on filedocumented in this encounter Additional Health Concerns Infection Onset Date Last Indicated Resolved Time COVID-19 Rule Out 01/21/2025 01/21/2025 01/21/2025 11:40 AM CDT Assessment Noted Time PHQ-9 Depression Total Score: 0 03/16/20 21 1:54 PM MANAGEMENT LEAD documented as of this encounter Care Teams Hotel Operations Manager Relationship Specialty Start Date End Date Lise Posada MD PCP - General FAMILY PRACTICE 12/31/17 documented as of this encounter
--- OUTSIDE RECORDS SUMMARY | 2025-02-20 13:09 | XMS_ITS | Clinical Summary ---
Author Organization [facility] Address [address] [facility] [place] [address] Care Team Providers Care Laborer Cutting Tool Name Role Phone Lise Posada MD Primary Care Provider [phone] Louise Starkey RN Unavailable Unavailable Olivia Torres LAUNDRY OPERATOR-INSEMINATION WORKER Unavailable [phone] Source Comments [facility],non-owned Affiliates and Associated Physician Practices is amultiple site organization consisting of ambulatory clinics and hospital sitesin [place], [place], [place] and [place]. This disclosure is being madepursuant to the Care Everywhere program and may not contain all information available regarding this patient. Last updated 18.[facility] Allergies No known active allergies Medications * [...] 02/09/2025 Refill [facility] - Dermatology [address] [place] [phone] Arabella Rodriguez MD Refill Request 12/10/2024 Refill [facility] - GI [address] [place] [phone] Olivia Torres, LAUNDRY OPERATOR-INSEMINATION WORKER Refill Request from Last 3 Months Family [...] PM CDT Legal Sex Female 6:10 PM NEEDLE STRAIGHTENER Gender Identity Female 07/12/2021 7:16 PM CDT Sexual Orientation Straight 07/12/2021 7: 16 PM CDT Last Filed Vital Signs Vital Sign Reading Time Taken Comments Blood Pressure 132/71 05/18/2024 10:32 AM NEEDLE STRAIGHTENER Pulse 58 05/18/2024 10:32 AM NEEDLE STRAIGHTENER Temperature 37 C (98.6 F) 05/18/2024 10:32 AM NEEDLE STRAIGHTENER Respiratory Rate 16 02/02/2022 1:26 PM CDT Oxygen Saturation 99% 05/18/2024 10:32 AM NEEDLE STRAIGHTENER Inhaled Oxygen Concentration - - Weight 72.2 kg (159 lb 3.2 oz) 05/18/2024 10:32 AM NEEDLE STRAIGHTENER Height 165.1 cm (5' 5) 05/18/2024 10:32 AM NEEDLE STRAIGHTENER Body Mass Index 26.49 05/18/2024 10:32 AM NEEDLE STRAIGHTENER Plan of Treatment Upcoming Encounters Date Type Department Care Team (Late st Contact Info) Description 05/18/2025 12:30 PM NEEDLE STRAIGHTENER Procedure visit [facility] - GI [address] [place] [phone] 05/18/2025 1:00 PM NEEDLE STRAIGHTENER Office Visit [facility] - GI [address] [place] [phone] Olivia Torres, LAUNDRY OPERATOR-INSEMINATION WORKER [address] [place] [address] [address] [place] [address] Health Maintenance Due Date Last Done Comments [...] Management General On track( 025 4:44 PM NEEDLE STRAIGHTENER) Louise Srivastava, RN Note: Expected end date: ongoing Interventions: Take all medications as prescribed Let your doctor know right away about any changes in your medications Make sure to request a refill of your medication at least one week prior to your last dose Procedures Procedure Name Priority Date/Time Associated Diagnosis Comments COMPREHENSIVE METABOLIC PANEL Routine 05/18/2024 12:11 PM NEEDLE STRAIGHTENER Hepatic steatosis ENDOSCOPY, COLON, DIAGNOSTIC Routine 07/10/2021 2:43 PM CDT HEPATITIS C AB SCREEN RFLX NAAT QUANT AM Draw 07/10/2021 4:40 AM CDT HIV-1 HIV-2 ANTIBODY + HIV P24 AG PANEL STAT 07/08/2021 10:38 PM CDT from Last 3 Months or Most Recently Relevant to Health Maintenance Results * (ABNORMAL) COMPREHENSIVE METABOLIC PANEL (05/18/2024 12:11 PM NEEDLE STRAIGHTENER) BUN 7 7 - 26 mg/dL 05/18/2024 1:28 PM [facility] Creatinine 0.48(L) 0.56 - 0.96 mg/dL 05/18/2024 1:28 PM [facility] Sodium 142 136 - 145 mmol/L 05/18/2024 1:28 PM [facility] Potassium 2.8(L) 3.5 - 4.5 mmol/L 05/18/2024 1:28 PM [facility] Chloride 107 98 - 107 mmol/L 05/18/2024 1:28 PM [facility] CO2 28 22 - 29 mmol/L 05/18/2024 1:28 PM [facility] Glucose 93 70 - 99 mg/dL 05/18/2024 1:28 PM [facility] Calcium 9.1 8.4 - 10.2 mg/dL 05/18/2024 1:28 PM [facility] Protein Total 7.2 6.0 - 8.3 g/dL 05/18/2024 1:28 PM [facility] Albumin 3.9 3.4 - 5.0 g/dL 05/18/2024 1:28 PM [facility] Bilirubin Total 0.3 0.2 - 1.2 mg/dL 05/18/2024 1:28 PM [facility] Alkaline Phosphatase 60 40 - 150 U/L 05/18/2024 1:28 PM [facility] ALT 14 5 - 55 U/L 05/18/2024 1:28 PM [facility] AST 16 5 - 34 U/L 05/18/2024 1:28 PM [facility] Anion Gap 7 6 - 16 05/18/2024 1:28 PM [facility] BUN/Creatinine Ratio 15 7 - 23 05/18/2024 1:28 PM [facility] Osmolality Calculated 292 275 - 295 mOsm/kg 05/18/2024 1:28 PM [facility] Albumin/Globulin Ratio 1.2 1.1 - 2.3 05/18/2024 1:28 PM [facility] eGFR by CKD-EPI >90 >=90 mL/min/1.7 3 m2 05/18/2024 1:28 PM [facility] Blood BLOOD SPECIMEN / Unknown Lab Venipuncture / Unknown 05/18/2024 12:11 PM NEEDLE STRAIGHTENER 05/18/2024 12:52 PM [facility] us Olivia Torres LAUNDRY OPERATOR-INSEMINATION WORKER LAB - CHEMISTRY ORD ERABLES Final Result [facility] [address] [place] [address], [facility] [phone] * ENDOSCOPY, COLON, DIAGNOSTIC (07/10/2021 2:43 PM [...] bowel preparation was evaluated using the BBPS ([place] Bowel Preparation Scale) with scores of: Right [...] entire procedure. Procedure Code(s): --- Professional --- 97265, Colonoscopy, flexible; with biopsy, single or multiple Diagnosis Code(s): --- Professional --- K64.8, Other hemorrhoids K63.5, Polyp of colon K92.1, Melena (includes Hematochezia) K57.30, Diverticulosis of large intestine without perforation or abscess without bleeding CPT copyright 2019 [employer]. All rights reserved. The codes documented in this report are preliminary and upon certified medical coder review may be revised to meet current compliance requirements. Peter Caldwell MD 07/10/2021 3:18:26 PM Note Initiated On: 07/10/2021 2:43 PM Number of Addenda: [address] 07/10/2021 2:43 PM CDT Peter Caldwell MD GI PROCEDURE ORDERAB LES Edited Result - Final [facility] * HEPATITIS C AB SCREEN RFLX NAAT QUANT (07/10/2021 4:40 AM CDT) Hepatitis C Antibody Non-react edil Non-reac tive 07/10/2021 6:23 AM CDT [facility] Comment:Hepatitis C Antibody screen [...] LAB - CHEMISTRY ORDERABLES F inal Result [address] [address], [place] [phone] * HIV-1 HIV-2 ANTIBODY + HIV P24 AG PANEL (07/08/2021 10:38 PM CDT) HIV Antigen/Antibod y 1 & 2 Non-reacti ve Non-react edil 07/08/2021 11:31 PM CDT [facility] Comment:No Laboratory eviden ce of HIV infection. Blood BLOOD SPECIMEN / Unknown Venipuncture / Unknown 07/08/2021 10:38 PM CDT 07/08/2021 10:42 PM CDT us Deshaun Luna MD LAB - CHEMISTRY ORDERABLES Final Result Performing Organization Address City/[facility]/ZIP Co de Phone Number [address] [address], [place] [phone] from Last 3 Months or Most Recently Relevant to Health Maintenance Insurance [facility] Advance Directives * Full Code (Latest Code Status on File) Date Activated Date Inactivated Comments 07/08/2021 7:36 PM 07/10/2021 10:00 PM Care Teams Laborer Cutting Tool Relationship Specialty Start Date End Date Lise Posada MD [address] [place] [address] PCP - General Family Medicine 02/17/18 Louise Starkey, RN Registered Nurse Hepatology 05/18/24 Olivia Torres, LAUNDRY OPERATOR-INSEMINATION WORKER [address] [facility] [place] [address] Nurse Practitioner Nurse Practitioner Family 05/19/24
[2025-02-24 11:09] LABS: Calprotectin, Fecal 44 ug/g (0-120)
== END 2025-02-20 13:07 | disposition home or self-care (01) ==
PROVIDERS: Visit Provider Nurse Practitioner Family
DX: D50.9 Iron deficiency anemia, unspecified (principal)
CPT/HCPCS: 83993